=== PATIENT | female | born 1935 | race Caucasian/White ===

== ENCOUNTER 2020-01-09 11:43 | Inpatient (IN) | payer MEDICARE, MEDICAID, SELFPAY ==
[2020-01-09] VITALS (9 sets, daily range): BP systolic 97–121; BP diastolic 37–48; PULSE 82–92; RESP 17–25; TEMP 37.3–38.3; O2SAT 90–97; BMI 69.1
--- NOTE | 2020-01-09 12:30 | XR_ITS ---
EXAMINATION: XR CHEST 1 VIEW CLINICAL INFORMATION: Cough, fever. COMPARISON: Priors unavailable. TECHNIQUE: AP portable chest. FINDINGS: Hypoinflated with bronchovascular crowding and mild central vascular congestion. No overt edema. No definite effusion or consolidation. Normal cardiac silhouette. IMPRESSION: Hypoinflation with bronchovascular crowding/central vascular congestion. No focal consolidation.
--- NOTE | 2020-01-09 12:31 | ED_ITS ---
HPI - Fever General Chief Complaint: Fever Stated Complaint: FEVER,COUGH X'S 1 WEEK Time Seen by Provider: 01/09/20 12:30 Source: patient and family Limitations: altered mental status (dementia) History of Present Illness HPI Narrative: noted to have URI with fevers up to 103 at home, son notes difficulty breathing last night here no hypoxia at this time MD elicited complaint: fever Onset (ago): day(s) (7) Exacerbating factors: nothing Relieving factors: nothing Associated symptoms: chills, nasal congestion, cough and shortness of breath Related Data Allergies Allergy/AdvReac Type Severity Reaction Status Date / Time No Known Allergies Allergy Unverified 12/26/19 19:02 [No Known Allergies*] Review of Systems Review of Systems: Constitutional : positive Fever, positive Chills, positive fatigue, positive Malaise ENT/Mouth : no sore throat, positive runny nose Eyes: No Discharge Cardiovascular : No Chest Pain, positive SOB Respiratory : positive Cough, No Sputum, No Wheezing, positive Dyspnea Gastrointestinal : positive Nausea, No Vomiting, No Diarrhea, no abdominal pain Genitourinary : No Dysuria, No Urinary Frequency, Musculoskeletal : positive Myalgia Skin : No rash Neuro : No Headache PMFSH Past Medical History Attestation statement: The following information was validated with the patient. Medical History (Updated 01/09/20 @ 15:59 by Yesika Jones DO) Arthritis Diabetes mellitus, type 2 Hypertension Social History Social History Advance Directives: No Advance Directives Information Provided: No Physical Exam Vital Signs and I&O and Narrative: Vital Signs and I&O: Vital Signs Temp 100.5 F H 01/09/20 15:20 Pulse 92 01/09/20 15:20 Resp 17 01/09/20 15:20 BP 121/46 L 01/09/20 15:20 Pulse Ox 94 01/09/20 14:02 Intake & Output 01/08/20 01/09/20 01/09/20 18:59 06:59 18:59 Weight 145 kg Body Mass Index 69.1 Const: General: cooperative and no acute distress Nutritional Appearance: average body habitus HENMT: Head: Yes normal to inspection Face and sinus: Yes normal facial exam Mouth: Normal oral and palatal mucosa present Eyes: General: appearance normal, both eyes and all related structures Pupils: Equal, round and reactive pupils present Neck: Neck: Yes normal visual inspection Resp: Effort & Inspection: normal respiratory effort and no respiratory distress Auscultation: bronchial breath sounds Cardio: Rate: regular rate Rhythm: regular rhythm Peripheral pulses: Peripheral pulses 2+ throughout GI: Palpation (GI): Soft to palpation and nontender Skin: General skin exam: no rashes or lesions noted Neuro: General: moves all extremities and confusion (baseline) Cranial nerves: Yes Equal, round and reactive pupils present Motor exam (neuro): 5/5 motor strength present throughout Extrem: General: Yes normal to inspection and Yes no pedal edema Psych: Affect: normal affect Course Course Hospital Course: positive CT chest for COVID, no hypoxia will ask the patient to be ambulated and if she becomes hypoxic may need admission, son aware, also notified that she may have a poor outcome from this, CT scan positive at this time will start antibiotics given chest CT and infection though likely viral in nature 257pm Reevaluation(s) Reevaluation #1: does not ambulate cannot check for hypoxia but resting baseline is 93-95% she looks unwell Reevaluation #2: currently 93% on RA her RR is 26 will talk to hospitalist about possible admission MDM - Fever MDM Narrative Medical decision making narrative: son reports fevers and cough x 1 week much worse last night here with congestion and cough, will need labs, lactic acid, tylenol, CXR for pneumonia, COVID swab, patient is not eating or drinking at home, overall FTT and weak, dispo per results and findings Lab Data Result diagrams: 01/09/20 13:30 01/09/20 13:30 Labs: Lab Results 01/09/20 01/09/20 01/09/20 Range/Units 13:30 13:30 13:30 WBC 6.1 (4.8-10.8) X10*3/uL RBC 4.56 (4.20-5.50) X10*6/uL Hgb 11.5 L (12.0-16.0) g/dl Hct 37.1 (37-47) % MCV 81.4 (80-98) fL MCH 25.2 L (27.0-33.0) pg MCHC 31.0 (31.0-35.0) g/dl RDW 13.1 (11.0-16.0) % Plt Count 181 (160-400) X10*3/uL MPV 9.6 (9.4-12.3) fL Immature Gran % (Auto) 0.8 H (0.0-0.4) % Neut % (Auto) 78.7 H (45-73) % Lymph % (Auto) 13.9 L (20-40) % [place] % (Auto) 5.9 (2-11) % Eos % (Auto) 0.5 (0-4) % Baso % (Auto) 0.2 (0-2) % Neut # (Auto) 4.8 (2.0-8.3) X10*3/uL Lymph # (Auto) 0.9 L (1.2-4.9) X10*3/uL [place] # (Auto) 0.4 (0.1-1.2) X10*3/uL Eos # (Auto) 0.0 (0.0-0.4) X10*3/uL Baso # (Auto) 0.0 (0.0-0.2) X10*3/uL Abs Immat Gran (auto) 0.05 H (0.00-0.03) X10*3/uL Absolute Nucleated RBC 0.000 (0.0-0.012) X10*3/uL Nucleated RBC % (auto) 0.0 (0.0-0.2) /100WBC D-Dimer NG/ML Hold Blue Top Cancelled Sodium 134 L (135-145) mmol/L Potassium 4.4 (3.3-5.1) mmol/l Chloride 99 (96-108) mmol/L Carbon Dioxide 27 (22-29) mmol/L Anion Gap 12 (12-20) BUN 18 H (9-16) mg/dL Creatinine 0.84 (0.5-1.4) mg/dL Estim Creat Clear Calc 63.8 Estimated GFR > 60 Random Glucose 240 H (60-115) mg/dL Lactic Acid (0.5-2.0) mmol/L Calcium 8.6 (8.4-10.2) mg/dL Magnesium 2.1 (1.6-2.6) mg/dL Total Bilirubin 0.4 (0.0-1.0) mg/dL Direct Bilirubin 0.2 (0.0-0.5) mg/dL AST 26 (5-31) U/L ALT 20 (0-31) U/L Alkaline Phosphatase 88 (39-117) U/L Lactate Dehydrogenase 297 H (122-220) U/L Troponin I High Sens (<3.5-17.0) ng/L B-Natriuretic Peptide (<100) pg/mL Total Protein 6.7 (6.5-8.0) g/dL Albumin 3.8 (3.5-5.0) g/dL 01/09/20 01/09/20 01/09/20 Range/Units 13:30 13:30 13:30 WBC (4.8-10.8) X10*3/uL RBC (4.20-5.50) X10*6/uL Hgb (12.0-16.0) g/dl Hct (37-47) % MCV (80-98) fL MCH (27.0-33.0) pg MCHC (31.0-35.0) g/dl RDW (11.0-16.0) % Plt Count (160-400) X10*3/uL MPV (9.4-12.3) fL Immature Gran % (Auto) (0.0-0.4) % Neut % (Auto) (45-73) % Lymph % (Auto) (20-40) % [place] % (Auto) (2-11) % Eos % (Auto) (0-4) % Baso % (Auto) (0-2) % Neut # (Auto) (2.0-8.3) X10*3/uL Lymph # (Auto) (1.2-4.9) X10*3/uL [place] # (Auto) (0.1-1.2) X10*3/uL Eos # (Auto) (0.0-0.4) X10*3/uL Baso # (Auto) (0.0-0.2) X10*3/uL Abs Immat Gran (auto) (0.00-0.03) X10*3/uL Absolute Nucleated RBC (0.0-0.012) X10*3/uL Nucleated RBC % (auto) (0.0-0.2) /100WBC D-Dimer 948 NG/ML Hold Blue Top SEE NOTE Sodium (135-145) mmol/L Potassium (3.3-5.1) mmol/l Chloride (96-108) mmol/L Carbon Dioxide (22-29) mmol/L Anion Gap (12-20) BUN (9-16) mg/dL Creatinine (0.5-1.4) mg/dL Estim Creat Clear Calc Estimated GFR Random Glucose (60-115) mg/dL Lactic Acid 1.4 (0.5-2.0) mmol/L Calcium (8.4-10.2) mg/dL Magnesium (1.6-2.6) mg/dL Total Bilirubin (0.0-1.0) mg/dL Direct Bilirubin (0.0-0.5) mg/dL AST (5-31) U/L ALT (0-31) U/L Alkaline Phosphatase (39-117) U/L Lactate Dehydrogenase (122-220) U/L Troponin I High Sens 18.4 H (<3.5-17.0) ng/L B-Natriuretic Peptide 15 (<100) pg/mL Total Protein (6.5-8.0) g/dL Albumin (3.5-5.0) g/dL ECG Data Attestation: I personally reviewed and interpreted this ECG as follows: ECG interpretation date: 01/09/20 ECG interpretation time: 13:28 Interpretation: NSR 86 normal p waves and germaine, normal QRS, left axis deviation, normal ST T waves, no DANA, normal qTc, no ischemia Discharge Plan Discharge Clinical Impression: Viral infection, Weakness, Adult failure to thrive Pneumonia Qualifiers: Pneumonia type: due to unspecified organism Laterality: bilateral Lung location: lower lobe of lung Qualified Code(s): J18.9 - Pneumonia, unspecified organism Patient Disposition: Admitted As Inpatient
--- NOTE | 2020-01-09 13:42 | CT_ITS ---
EXAMINATION: CT CHEST WITHOUT CONTRAST CLINICAL INFORMATION: Fevers and cough. Evaluate for pneumonia. COMPARISON: Same day radiographs TECHNIQUE: A noncontrast CT of the chest is performed with sagittal and coronal reformats. This CT examination was performed using dose optimization techniques as appropriate, variously including the following: *Automated exposure control *Adjustment of mA and/or kV according to patient size (this includes techniques or standardized protocols for targeted exams where dose is matched to indication/reason for exam; i.e. extremities or head) *Use of iterative reconstruction technique DLP: 469 FINDINGS: There are patchy peripheral groundglass parenchymal opacities in both upper lobes and both posterior lower lobes, as well as along the inferior aspect of the right middle lobe. No dense consolidation. Mildly prominent paratracheal and subcarinal lymph nodes. No axillary or hilar adenopathy. No pericardial effusion or pleural effusion. Extensive atherosclerotic calcifications. No acute osseous abnormality. Small hiatal hernia. IMPRESSION: Fairly diffuse peripheral groundglass parenchymal opacities concerning for an atypical multifocal pneumonia with mildly prominent mediastinal lymph nodes. These imaging features are concerning for Covid 19 pneumonia. Correlate clinically.
[2020-01-09 13:43] LABS: Basophils Percent Auto 0.2 % (0-2); Eosinophils Percent Auto 0.5 % (0-4); Hematocrit 37.1 % (37-47); Hemoglobin 11.5 g/dl (12.0-16.0); Imm Gran Abs Auto 0.05 X10*3/uL (0.00-0.03); Imm Gran Pct Auto 0.8 % (0.0-0.4); Lymphocytes Absolute Auto 0.9 X10*3/uL (1.2-4.9); Lymphocytes Percent Auto 13.9 % (20-40); MANUAL DIFF FLAG NO; Mean Corpuscular Hemoglobin 25.2 pg (27.0-33.0); Mean Corpuscular Volume 81.4 fL (80-98); Mean Platelet Volume 9.6 fL (9.4-12.3); Monocytes Absolute Auto 0.4 X10*3/uL (0.1-1.2); Monocytes Percent Auto 5.9 % (2-11); Neutrophils Absolute Auto 4.8 X10*3/uL (2.0-8.3); Neutrophils Percent Auto 78.7 % (45-73); Platelet Count 181 X10*3/uL (160-400); Red Blood Count 4.56 X10*6/uL (4.20-5.50); Red Cell Distribution Width 13.1 % (11.0-16.0); White Blood Count 6.1 X10*3/uL (4.8-10.8)
[2020-01-09 14:04] LABS: Lactic Acid 1.4 mmol/L (0.5-2.0)
[2020-01-09] MEDS: Acetaminophen Oral Liquid 650 MG/20.3 ML SOLUTION PO (14:05)
[2020-01-09] MEDS: ondansetron HCL 4 MG/2 ML VIAL IVPUSH (14:05)
[2020-01-09 14:10] LABS: Alanine Aminotransferase 20 U/L (0-31); Albumin Level 3.8 g/dL (3.5-5.0); Alkaline Phosphatase 88 U/L (39-117); Anion Gap 12 (12-20); Aspartate Amino Transferase 26 U/L (5-31); Bilirubin Direct 0.2 mg/dL (0.0-0.5); Bilirubin Total 0.4 mg/dL (0.0-1.0); Blood Urea Nitrogen 18 mg/dL (9-16); Calcium 8.6 mg/dL (8.4-10.2); Carbon Dioxide 27 mmol/L (22-29); Chloride 99 mmol/L (96-108); Creatinine Clr Calc Pharmacy 63.8; Estimated Glomerular Filt Rate > 60; Glucose Random 240 mg/dL (60-115); Magnesium 2.1 mg/dL (1.6-2.6); Potassium 4.4 mmol/l (3.3-5.1); Sodium 134 mmol/L (135-145); Total Protein 6.7 g/dL (6.5-8.0)
[2020-01-09 14:23] LABS: B Type Natriuretic Peptide 15 pg/mL (<100); Troponin-I High Sensitivity 18.4 ng/L (<3.5-17.0)
--- NOTE | 2020-01-09 15:26 | PC.NURSE ---
pt in bed with son at the bedside no acute resp distress noted but pt is febrile this RN taking over this pt
[2020-01-09] MEDS: cefTRIAXone sodium 1 GM in 0.9 % Sodium Chloride 50 ML IV (15:31)
[2020-01-09 15:49] LABS: D Dimer 948 NG/ML
[2020-01-09 15:54] LABS: Lactate Dehydrogenase 297 U/L (122-220)
[2020-01-09 16:16] LABS: Ferritin 298 ng/mL (10-250)
[2020-01-09 16:23] LABS: Procalcitonin 0.05 ng/mL
[2020-01-09 17:07] LABS: Troponin-I High Sensitivity 17.8 ng/L (<3.5-17.0)
--- NOTE | 2020-01-09 19:12 | PC.NURSE ---
CONGESTED NON PRODUCTIVE COUGH NO RESP DISTRESS
[2020-01-09 19:34] LABS: Glucose Urine UA 100 MG/DL (NEG); Leukocyte Esterase Urine NEG (NEG); Nitrite Urine NEG (NEG); Specific Gravity - Urine 1.025 (1.005-1.025); Urine Blood NEG (NEG); Urine Ketones NEG (NEG); Urine Protein 2+ MG/DL (NEG-TRACE)
[2020-01-09 19:36] LABS: Appearance Urine CLEAR; Color Urine YELLOW
--- NOTE | 2020-01-09 19:49 | PC.NURSE ---
Hospitalist at bedside, son reports that pt started feeling ill last week, following a doctor's appt. pt developed a fever and cough last week. pt had a fall last night, coughing and shortness of breath this morning. EMS called and pt transported to ER. Son reports that pt normally has edema to all extremities, hx of alzheimers . also a hx of diabetes, HTN, Afib. Son is ok with admission, hospitalists asks son what measures should we take if her heart stops. son responds let her go in peace.
--- NOTE | 2020-01-09 19:54 | PC.NURSE ---
Pt placed on 2 lpm o2 via nc, pt's spo2 89% room air.
[2020-01-09 19:56] LABS: RBC Urine 0-2 /HPF (0); Squamous Epithelial Cell Urine TRACE /LPF; WBC Urine 0-2 /HPF (0-4)
--- NOTE | 2020-01-09 21:19 | PC.NURSE ---
report given to rn on floor, pt ready for transport to floor.
[2020-01-09] MEDS: 0.9 % Sodium Chloride Flush 3 ML SYRINGE 2 ML IVFLUSH (23:38)
[2020-01-09] MEDS: Docusate Sodium 100 MG CAPSULE PO (23:38)
[2020-01-09] MEDS: Enoxaparin Sodium 40 MG/0.4 ML SYRINGE SUBCUT (23:38)
[2020-01-10] VITALS (8 sets, daily range): BP systolic 118–162; BP diastolic 53–72; PULSE 85–95; RESP 18–20; TEMP 36.8–38.2; O2SAT 92–98; BMI 69.1
--- NOTE | 2020-01-10 04:24 | P.HPIM_ITS ---
History of Present Illness Date of Service: 01/09/20 Chief Complaint: cough, fever, shortness of breath this is a an 84-year-old female with past medical history of hypertension, diabetes and Alzheimer's who is brought in to the hospital by her son due to multiple complaints including cough, shortness of breath, and fever. History is mostly obtained from her son at bedside as patient has Alzheimer's and unable to give much history. According to her son, he woke up to his mom coughing severely last night as well as showing signs of shortness of breath. It appears the patient has been having some sort of dyspnea for the past 1 week as well as fevers of up to 103. he spoke to her nurse in a.m. and she asked him to bring her to the hospital. Her son denies patient having any recent sick contacts or travel. Patient is mostly bedbound. He reports that she has not complained to him of any other symptoms. On arrival to the ED hemodynamically stable with no significant abnormal vitals satting 90-97%. Patient has been placed on 2 L of O2. Labs are significant for hemoglobin of 11.5, corrected sodium of around 136, BUN of 18, negative UA, high sensitivity troponin of [address] delta [address] of the chest shows diffuse peripheral ground-glass parenchymal opacities concerning for an atypical multifocal pneumonia with features of COVID-19 past medical history includes: Alzheimer's dementia, diabetes, hypertension, osteoarthritis, CVA Past surgical history: Knee replacement bilaterally Family history: Son is unaware of any family history Social history: Comes from home, lives with her son, wheelchair / bedbound, no current or past history of tobacco alcohol or illicit drug Review of Systems Review of Systems: Yes all other systems are reviewed and are negative Neurologic: Reports confusion (baseline) Psychiatric: Psychiatric: Reports confusion (baseline) [facility] Medical History (Updated 01/10/20 @ 04:36 by Anthony Chapman MD) Arthritis Diabetes mellitus, type 2 Hypertension Social History Household Members: Children Household Members Other:: Lives with son who is [place] man Housing: Unknown / Unable to assess Do you presently have visiting nurse or other home services: No Smoking Status: Unknown if ever smoked Use of substances other than those prescribed or required for medical reasons: Unknown Advance Directives: No Advance Directives Information Provided: No Do you have thoughts of harming others: None Recently lost weight without trying: Unsure Meds Allergies Allergy/AdvReac Type Severity Reaction Status Date / Time No Known Allergies Allergy Unverified 12/26/19 19:02 [No Known Allergies*] Home Medications Medication Instructions Recorded Confirmed Type amlodipine 1 tab PO DAILY 01/09/20 01/09/20 History aspirin 1 tab PO DAILY 01/09/20 01/09/20 History docusate sodium 1 cap PO BID PRN 01/09/20 01/09/20 History docusate sodium 1 cap PO BID PRN 01/09/20 01/09/20 History donepezil 1 tab PO DAILY 01/09/20 01/09/20 History isosorbide mononitrate 1 tab PO DAILY 01/09/20 01/09/20 History losartan 1 tab PO DAILY 01/09/20 01/09/20 History melatonin 1 cap PO BEDTIME 01/09/20 01/09/20 History memantine 1 tab PO BID 01/09/20 01/09/20 History quetiapine 1 tab PO BEDTIME 01/09/20 01/09/20 History quetiapine 1 tab PO BEDTIME 01/09/20 01/09/20 History sennosides [senna] 2 tab PO DAILY PRN 01/09/20 01/09/20 History simvastatin 1 tab PO BEDTIME 01/09/20 01/09/20 History trazodone 1 tab PO BEDTIME 01/09/20 01/09/20 History Physical Exam Vital Signs and Narrative: Vital Signs: Last Vital Signs Temp 98.7 F 01/10/20 03:25 Pulse 90 01/10/20 03:25 Resp 20 01/10/20 03:25 BP 158/72 H 01/10/20 03:25 Pulse Ox 98 01/10/20 03:25 Body Mass Index 69.1 Const: General: confusion (baseline) Orientation/consciousness: confusion (baseline) Eyes: General: appearance normal, both eyes and all related structures Pupils: Equal, round and reactive pupils present Resp: Other: unable to auscultate appropriately as patient not following command Effort & Inspection: normal respiratory effort Cardio: Rate: regular rate Rhythm: regular rhythm GI: Palpation (GI): Soft to palpation Auscultation: normal bowel sounds Skin: General skin exam: no rashes or lesions noted Neuro: General: confusion (baseline) Cranial nerves: Yes Equal, round and reactive pupils present Extrem: General: Yes normal to inspection and Yes no pedal edema Results Labs Labs: Laboratory Tests 01/09/20 01/09/20 01/09/20 13:30 13:30 13:30 WBC 6.1 RBC 4.56 Hgb 11.5 L Hct 37.1 MCV 81.4 MCH 25.2 L MCHC 31.0 RDW 13.1 Plt Count 181 MPV 9.6 Immature Gran % (Auto) 0.8 H Neut % (Auto) 78.7 H Lymph % (Auto) 13.9 L [place] % (Auto) 5.9 Eos % (Auto) 0.5 Baso % (Auto) 0.2 Neut # (Auto) 4.8 Lymph # (Auto) 0.9 L [place] # (Auto) 0.4 Eos # (Auto) 0.0 Baso # (Auto) 0.0 Abs Immat Gran (auto) 0.05 H Absolute Nucleated RBC 0.000 Nucleated RBC % (auto) 0.0 D-Dimer Hold Blue Top Cancelled Sodium 134 L Potassium 4.4 Chloride 99 Carbon Dioxide 27 Anion Gap 12 BUN 18 H Creatinine 0.84 Estim Creat Clear Calc 63.8 Estimated GFR > 60 Random Glucose 240 H Lactic Acid Calcium 8.6 Magnesium 2.1 Ferritin 298 H Total Bilirubin 0.4 Direct Bilirubin 0.2 AST 26 ALT 20 Alkaline Phosphatase 88 Lactate Dehydrogenase 297 H Troponin I High Sens B-Natriuretic Peptide Total Protein 6.7 Albumin 3.8 Procalcitonin Urine Color Urine Appearance Urine pH Ur Specific [place] Urine Protein Urine Glucose (UA) Urine Ketones Urine Blood Urine Nitrite Ur Leukocyte Esterase Urine RBC Urine WBC Ur Squamous Epith Cells Urine Bacteria 01/09/20 01/09/20 01/09/20 13:30 13:30 13:30 WBC RBC Hgb Hct MCV MCH MCHC RDW Plt Count MPV Immature Gran % (Auto) Neut % (Auto) Lymph % (Auto) [place] % (Auto) Eos % (Auto) Baso % (Auto) Neut # (Auto) Lymph # (Auto) [place] # (Auto) Eos # (Auto) Baso # (Auto) Abs Immat Gran (auto) Absolute Nucleated RBC Nucleated RBC % (auto) D-Dimer Hold Blue Top Sodium Potassium Chloride Carbon Dioxide Anion Gap BUN Creatinine Estim Creat Clear Calc Estimated GFR Random Glucose Lactic Acid 1.4 Calcium Magnesium Ferritin Total Bilirubin Direct Bilirubin AST ALT Alkaline Phosphatase Lactate Dehydrogenase Troponin I High Sens 18.4 H B-Natriuretic Peptide 15 Total Protein Albumin Procalcitonin 0.05 Urine Color Urine Appearance Urine pH Ur Specific [place] Urine Protein Urine Glucose (UA) Urine Ketones Urine Blood Urine Nitrite Ur Leukocyte Esterase Urine RBC Urine WBC Ur Squamous Epith Cells Urine Bacteria 01/09/20 01/09/20 01/09/20 13:30 16:02 19:11 WBC RBC Hgb Hct MCV MCH MCHC RDW Plt Count MPV Immature Gran % (Auto) Neut % (Auto) Lymph % (Auto) [place] % (Auto) Eos % (Auto) Baso % (Auto) Neut # (Auto) Lymph # (Auto) [place] # (Auto) Eos # (Auto) Baso # (Auto) Abs Immat Gran (auto) Absolute Nucleated RBC Nucleated RBC % (auto) D-Dimer 948 Hold Blue Top SEE NOTE Sodium Potassium Chloride Carbon Dioxide Anion Gap BUN Creatinine Estim Creat Clear Calc Estimated GFR Random Glucose Lactic Acid Calcium Magnesium Ferritin Total Bilirubin Direct Bilirubin AST ALT Alkaline Phosphatase Lactate Dehydrogenase Troponin I High Sens 17.8 H B-Natriuretic Peptide Total Protein Albumin Procalcitonin Urine Color YELLOW Urine Appearance CLEAR Urine pH 6.0 Ur Specific [place] 1.025 Urine Protein 2+ H Urine Glucose (UA) 100 H Urine Ketones NEG Urine Blood NEG Urine Nitrite NEG Ur Leukocyte Esterase NEG Urine RBC 0-2 Urine WBC 0-2 Ur Squamous Epith Cells TRACE Urine Bacteria NONE Assessment and Plan (1) Pneumonia: Qualifiers: Laterality: bilateral Lung location: lower lobe of lung Pneumonia type: due to unspecified organism Qualified Code(s): J18.9 - Pneumonia, un specified organism Status: Acute patient presents with CT imaging suggestive of multifocal pneumonia concerning for COVID-19 infection Patient has no hypoxia at this time with lowest recorded O2 sats of 91% on room air, currently satting 97-98% on 2 L of oxygen Given patient's clinical status prior to contraction of this pneumonia she most likely will have a poor outcome, son at bedside is aware Plan: pending COVID-19 PCR continue ceftriaxone and azithromycin will obtain strep pneumo antigen as well as Legionella antigen for completeness of workup monitoring respiratory status O2 as required (2) Viral infection: Status: Acute most likely COVID-[address] finding plan at this time patient is not hypoxic, hemodynamically stable, pending COVID-19 PCR (3) Weakness: Status: Acute secondary to acute infection will monitor (4) Adult failure to thrive: Status: Acute multifactorial including due to Alzheimer's dementia, being bed-bound, will have to discuss discharge planning with son as he may not be interested in patient placement at [facility]
[2020-01-10 08:17] LABS: Glucose, Whole Blood 290 mg/dL (60-115)
[2020-01-10] MEDS: Insulin Lispro 100 UNIT/ML 3 ML VIAL SUBCUT ×4 (08:32→22:38)
[2020-01-10] MEDS: amLODIPine Besylate 5 MG TABLET PO (08:36)
[2020-01-10] MEDS: Donepezil HCl 10 MG TABLET PO (08:36)
[2020-01-10] MEDS: Losartan Potassium 25 MG TABLET PO (08:36)
[2020-01-10] MEDS: Docusate Sodium 100 MG CAPSULE PO ×2 (08:36→22:34)
[2020-01-10] MEDS: Memantine HCl 10 MG TABLET PO ×2 (08:37→22:34)
[2020-01-10] MEDS: Isosorbide Mononitrate 30 MG TAB.ER.24H PO (08:37)
[2020-01-10] MEDS: Aspirin Enteric Coated 81 MG TABLET.DR PO (08:37)
--- NOTE | 2020-01-10 10:22 | MHC.CDI.CONC ---
CDI Concurrent Query Service Date: 01/10/20 Documentation Clarification: Please clarify if you are treating a probable/suspected/likely or confirmed: Body mass index: Morbid obesity Please specify if known Provider Response: Morbid Obesity PLEASE DO NOT DELETE/MODIFY EXISTING CONTENT Additional information is needed in order to code to the highest accuracy and appropriate Severity of Illness (SOI). Please clarify the information noted below in your progress notes and discharge summary. Risk Factors/Clinical Indicators/Treatments Body mass index: 69.1 Wheelchair, bed bound, Diabetes Failure to thrive CDS: Ernestina Barnett [facility], CDIS Contact Number: [phone] Please Review the information above and exercise your independent professional judgment in responding to the query. If you concur, pleas document in the PROGRESS NOTES and DISCHARGE SUMMARY. If you do not agree with the query, please document in the query above. morbid obesity THIS QUERY IS PART OF THE PERMANENT MEDICAL RECORD
--- NOTE | 2020-01-10 11:20 | MHC.CM.PN ---
IMM 01/10/20 FEMALE DX FEVER COUGH. Lives with Son. Dependent all aspects of care. Pt is bedbound. [place] [facility] in place. DP resume homecare services BLS transport. DNR on file. Information was obtained using EMR, and family interview. Son is primary caregiver. IMM delivery, copy at bedside per sons request. CM will follow.
[2020-01-10 11:50] LABS: Glucose, Whole Blood 319 mg/dL (60-115)
[2020-01-10] MEDS: 0.9 % Sodium Chloride Flush 3 ML SYRINGE 2 ML IVFLUSH ×3 (12:06→23:59)
--- NOTE | 2020-01-10 17:23 | PM.IMPN ---
Subjective Subjective Date of Service: 01/10/20 Interval History: Seen in f/u failure to thrive. No new issuess. resting comfortably in covid unit Review of Systems No able to obtain due to dementia Physical Exam Vital Signs and I&O and Narrative: Vital Signs and I&O: Vital Signs Temp 98.2 F 01/10/20 16:00 Pulse 85 01/10/20 16:00 Resp 18 01/10/20 16:00 BP 125/60 01/10/20 16:00 Pulse Ox 94 01/10/20 16:00 Const: General: confusion (baseline) Orientation/consciousness: confusion (baseline) Eyes: General: appearance normal, both eyes and all related structures Pupils: Equal, round and reactive pupils present Resp: Other: unable to auscultate appropriately as patient not following command Effort & Inspection: normal respiratory effort Cardio: Rate: regular rate Rhythm: regular rhythm GI: Palpation (GI): Soft to palpation Auscultation: normal bowel sounds Skin: General skin exam: no rashes or lesions noted Neuro: General: confusion (baseline) Cranial nerves: Yes Equal, round and reactive pupils present Extrem: General: Yes normal to inspection and Yes no pedal edema Objective Data Current Medications Generic Name Dose Route Start Last Admin Trade Name Freq PRN Reason Stop Dose Admin Acetaminophen 650 mg 01/09/20 20:23 Acetaminophen 650 Mg Supp.Rect [place] Q6H PRN Pain, Mild (Pain Scale 1-3) Amlodipine Besylate 5 mg 01/10/20 09:00 01/10/20 08:36 Amlodipine Besylate 5 Mg Tablet PO 5 mg DAILY [facility] Administration Protocol Aspirin 81 mg 01/10/20 09:00 01/10/20 08:37 Aspirin Enteric Coated 81 Mg Tablet.Dr PO 81 mg DAILY [facility] Administration Docusate Sodium 100 mg 01/09/20 21:00 01/10/20 08:36 Docusate Sodium 100 Mg Capsule PO 100 mg BID [facility] Administration Docusate Sodium 100 mg 01/10/20 04:40 Docusate Sodium 100 Mg Capsule PO BID PRN Constipation Donepezil HCl 10 mg 01/10/20 09:00 01/10/20 08:36 Donepezil Hcl 10 Mg Tablet PO 10 mg DAILY [facility] Administration Enoxaparin Sodium 40 mg 01/09/20 22:00 01/09/20 23:38 Enoxaparin Sodium 40 Mg/0.4 Ml Syringe SUBCUT 40 mg Q24H [facility] Administration Ceftriaxone Sodium 1 gm/ 50 mls @ 100 mls/hr 01/10/20 16:00 Sodium Chloride IV Q24H [facility] Azithromycin 500 mg/ Sodium 250 mls @ 250 mls/hr 01/10/20 16:00 Chloride IV Q24H [facility] Insulin Human Lispro 0 unit 01/10/20 07:30 01/10/20 12:04 Insulin Lispro 100 Unit/Ml 3 Ml Vial SUBCUT 8 unit QIDACHS [facility] Administration Protocol Isosorbide Mononitrate 30 mg 01/10/20 09:00 01/10/20 08:37 Isosorbide Mononitrate 30 Mg Tab.Er.24h PO 30 mg DAILY [facility] Administration Protocol Losartan Potassium 25 mg 01/10/20 09:00 01/10/20 08:36 Losartan Potassium 25 Mg Tablet PO 25 mg DAILY [facility] Administration Protocol Magnesium Hydroxide 30 ml 01/09/20 20:23 Milk Of Magnesia 30 Ml Oral.Susp PO DAILY PRN Constipation Memantine 10 mg 01/10/20 09:00 01/10/20 08:37 Memantine Hcl 10 Mg Tablet PO 10 mg BID [facility] Administration Ondansetron HCl 4 mg 01/09/20 20:23 Ondansetron Hcl 4 Mg/2 Ml Vial IVPUSH Q8H PRN Nausea and Vomiting Pharmacy Consult 1 each 01/09/20 16:02 Consult Rx Perform Med Rec MISCELLANE ONCE PRN Consult order Quetiapine Fumarate 100 mg 01/10/20 21:00 Quetiapine Fumarate 100 Mg Tablet PO BEDTIME [facility] Quetiapine Fumarate 50 mg 01/10/20 21:00 Quetiapine Fumarate 50 Mg Tablet PO BEDTIME [facility] Sodium Chloride 2 ml 01/10/20 00:00 01/10/20 12:06 0.9 % Sodium Chloride Flush 3 Ml Syringe IVFLUSH 2 ml QSHIFT [facility] Administration Trazodone HCl 100 mg 01/10/20 21:00 Trazodone Hcl 100 Mg Tablet PO BEDTIME [facility] Labs CBC & Chem 7: 01/09/20 13:30 01/09/20 13:30 Labs: Laboratory Results - last 24 hr Microbiology Microbiology Results: Microbiology 01/09/20 13:33 Blood - Venous Blood Culture - Preliminary No growth after 24 hours. 01/09/20 13:30 Blood - Venous Blood Culture - Preliminary No growth after 24 hours. Progress Note: A&P (1) Adult failure to thrive: Status: Acute (2) Weakness: Status: Acute (3) Viral infection: Status: Acute (4) Pneumonia: Status: Acute (5) Hypertension: Status: Acute (6) Diabetes mellitus, type 2: Status: Acute Assessment and Plan: 84/m With dementia, HTN here with 1) Pneumonia clinically well -continue Abx -covid pending -monitor 2)Adult failure to thrive/weakness related vciral illness, possible covid--supportive care 3) Dementia is stable 4)DM--Insulin, follow BS level , will check hemoglobin A1c due to elevated blood sugar and not taking any medicine at home. 5)HTN-controlled. no changes
[2020-01-10] MEDS: cefTRIAXone sodium 1 GM in 0.9 % Sodium Chloride 50 ML IV (17:32)
[2020-01-10 17:42] LABS: Glucose, Whole Blood 278 mg/dL (60-115)
[2020-01-10] MEDS: Azithromycin 500 MG in 0.9 % Sodium Chloride 250 ML 250 MG IV (18:26)
[2020-01-10 21:20] LABS: Glucose, Whole Blood 298 mg/dL (60-115)
[2020-01-10] MEDS: traZODone HCL 100 MG TABLET PO (22:34)
[2020-01-10] MEDS: Enoxaparin Sodium 40 MG/0.4 ML SYRINGE SUBCUT (22:34)
[2020-01-10] MEDS: QUEtiapine Fumarate 100 MG TABLET PO (22:34)
[2020-01-10] MEDS: QUEtiapine Fumarate 50 MG TABLET PO (22:34)
[2020-01-11] VITALS (8 sets, daily range): BP systolic 121–162; BP diastolic 56–70; PULSE 73–98; RESP 18–20; TEMP 36.7–37.2; O2SAT 91–96
[2020-01-11 08:18] LABS: Glucose, Whole Blood 237 mg/dL (60-115)
[2020-01-11] MEDS: Losartan Potassium 25 MG TABLET PO (08:31)
[2020-01-11] MEDS: Insulin Lispro 100 UNIT/ML 3 ML VIAL SUBCUT ×2 (08:31→17:18)
[2020-01-11] MEDS: Donepezil HCl 10 MG TABLET PO (08:33)
[2020-01-11] MEDS: Aspirin Enteric Coated 81 MG TABLET.DR PO (08:33)
[2020-01-11] MEDS: Docusate Sodium 100 MG CAPSULE PO ×2 (08:33→22:34)
[2020-01-11] MEDS: 0.9 % Sodium Chloride Flush 3 ML SYRINGE 2 ML IVFLUSH ×2 (08:33→15:19)
[2020-01-11] MEDS: Isosorbide Mononitrate 30 MG TAB.ER.24H PO (08:33)
[2020-01-11] MEDS: amLODIPine Besylate 5 MG TABLET PO (08:33)
[2020-01-11] MEDS: Memantine HCl 10 MG TABLET PO ×2 (08:33→22:34)
[2020-01-11 11:30] LABS: Glucose, Whole Blood 178 mg/dL (60-115)
[2020-01-11] MEDS: Azithromycin 500 MG in 0.9 % Sodium Chloride 250 ML 250 MG IV (15:15)
[2020-01-11] MEDS: cefTRIAXone sodium 1 GM in 0.9 % Sodium Chloride 50 ML IV (15:18)
--- NOTE | 2020-01-11 16:15 | HO.PM.IMPN ---
Subjective Subjective Date of Service: 01/11/20 Interval History: patient presented with cough fever and shortness of breath due to underlying dementia patient is unable to provide any meaningful history she yells when ever she is touched or her extremities are moved, as per patient's son this is her baseline Review of Systems unable to obtain detailed review of system due to underlying dementia Physical Exam Vital Signs and I&O and Narrative: Vital Signs and I&O: Vital Signs Temp 98.2 F 01/11/20 16:02 Pulse 94 01/11/20 16:02 Resp 20 01/11/20 16:02 BP 121/56 L 01/11/20 16:02 Pulse Ox 95 01/11/20 16:02 Intake & Output 01/10/20 01/11/20 01/11/20 18:59 06:59 18:59 Intake Total 290 / 680 390 / 680 50 / 50 Output Total 950 / 950 Balance 290 / -270 -560 / -270 50 / 50 Urine Output (Aver age ml/kg/hr) 0.55 0.55 Weight 145 kg Intake: Intake, Oral [place]ana unt 240 / 380 140 / 380 Intake, IV Amoun t 50 / 300 250 / 300 50 / 50 Azithromycin 5 00 mg In 0.9 % 250 / 250 Sodium Chlorid e 250 ml @ 250 mls/hr IV Q24H [facility] Rx#: [id number] cefTRIAXone so dium 1 gm In 0.9 50 / 50 50 / 50 % Sodium Chlor rodolfo 50 ml @ 100 mls/hr IV Q24H [facility] Rx#: [id number] Output: Output, Urine Am ount 450 / 450 Output, Urine Am ount (Catheter) 500 / 500 Female Externa l 500 / 500 Other: Meal Refused No NPO No Breakfast % Eate n 50% 0% Lunch % Eaten 0% Number of Incont inent Voids 1 1 1 Number of Unmeas ured Voids 1 Urine Color Yellow Continuous Bladd er Irrigation Fluid - Amount I nstilled Female Externa l 0 Body Mass Index 69.1 Const: General: resting comfortably in bed neck supple Resp: coarse breath sound, no respiratory distress, no wheeze no crackles Cardio: Rate: regular rate Rhythm: regular rhythm GI: Soft to palpation normal bowel sounds Skin: no rashes or lesions noted Neuro: unable to perform due to dementia Extrem: no pedal edema lower extremity mild puffiness/swelling both hands Objective Data Current Medications Generic Name Dose Route Start Last Admin Trade Name Freq PRN Reason Stop Dose Admin Acetaminophen 650 mg 01/09/20 20:23 Acetaminophen 650 Mg Supp.Rect [place] Q6H PRN Pain, Mild (Pain Scale 1-3) Amlodipine Besylate 5 mg 01/10/20 09:00 01/11/20 08:33 Amlodipine Besylate 5 Mg Tablet PO 5 mg DAILY [facility] Administration Protocol Aspirin 81 mg 01/10/20 09:00 01/11/20 08:33 Aspirin Enteric Coated 81 Mg Tablet.Dr PO 81 mg DAILY [facility] Administration Docusate Sodium 100 mg 01/09/20 21:00 01/11/20 08:33 Docusate Sodium 100 Mg Capsule PO 100 mg BID [facility] Administration Docusate Sodium 100 mg 01/10/20 04:40 Docusate Sodium 100 Mg Capsule PO BID PRN Constipation Donepezil HCl 10 mg 01/10/20 09:00 01/11/20 08:33 Donepezil Hcl 10 Mg Tablet PO 10 mg DAILY [facility] Administration Enoxaparin Sodium 40 mg 01/09/20 22:00 01/10/20 22:34 Enoxaparin Sodium 40 Mg/0.4 Ml Syringe SUBCUT 40 mg Q24H [facility] Administration Ceftriaxone Sodium 1 gm/ 50 mls @ 100 mls/hr 01/10/20 16:00 01/11/20 15:54 Sodium Chloride IV Infused Q24H [facility] Infusion Azithromycin 500 mg/ Sodium 250 mls @ 250 mls/hr 01/10/20 16:00 01/11/20 15:15 Chloride IV 250 mls/hr Q24H [facility] Administration Insulin Human Lispro 0 unit 01/10/20 07:30 01/11/20 12:47 Insulin Lispro 100 Unit/Ml 3 Ml Vial SUBCUT Not Given QIDACHS [facility] Protocol Isosorbide Mononitrate 30 mg 01/10/20 09:00 01/11/20 08:33 Isosorbide Mononitrate 30 Mg Tab.Er.24h PO 30 mg DAILY [facility] Administration Protocol Losartan Potassium 25 mg 01/10/20 09:00 01/11/20 08:31 Losartan Potassium 25 Mg Tablet PO 25 mg DAILY [facility] Administration Protocol Magnesium Hydroxide 30 ml 01/09/20 20:23 Milk Of Magnesia 30 Ml Oral.Susp PO DAILY PRN Constipation Memantine 10 mg 01/10/20 09:00 01/11/20 08:33 Memantine Hcl 10 Mg Tablet PO 10 mg BID [facility] Administration Ondansetron HCl 4 mg 01/09/20 20:23 Ondansetron Hcl 4 Mg/2 Ml Vial IVPUSH Q8H PRN Nausea and Vomiting Pharmacy Consult 1 each 01/09/20 16:02 Consult Rx Perform Med Rec MISCELLANE ONCE PRN Consult order Quetiapine Fumarate 100 mg 01/10/20 21:00 01/10/20 22:34 Quetiapine Fumarate 100 Mg Tablet PO 100 mg BEDTIME [facility] Administration Quetiapine Fumarate 50 mg 01/10/20 21:00 01/10/20 22:34 Quetiapine Fumarate 50 Mg Tablet PO 50 mg BEDTIME [facility] Administration Sodium Chloride 2 ml 01/10/20 00:00 01/11/20 15:19 0.9 % Sodium Chloride Flush 3 Ml Syringe IVFLUSH 2 ml QSHIFT [facility] Administration Trazodone HCl 100 mg 01/10/20 21:00 01/10/20 22:34 Trazodone Hcl 100 Mg Tablet PO 100 mg BEDTIME [facility] Administration Labs CBC & Chem 7: 01/09/20 13:30 01/09/20 13:30 Labs: Laboratory Results - last 24 hr 01/10/20 01/10/20 01/11/20 17:39 21:17 08:08 POC Glucose 278 H 298 H 237 H 01/11/20 11:27 POC Glucose 178 H Microbiology Microbiology Results: Microbiology 01/09/20 13:33 Blood - Venous Blood Culture - Preliminary No growth after 48 hours. 01/09/20 13:30 Blood - Venous Blood Culture - Preliminary No growth after 48 hours. Assessment and Plan (1) Viral infection: Status: Acute (2) Pneumonia: Status: Acute (3) Hypertension: Status: Acute (4) Diabetes mellitus, type 2: Status: Acute (5) Adult failure to thrive: Status: Acute (6) Weakness: Status: Acute Assessment and Plan: 1) Pneumonia clinically doing well -continue Abx,-covid pending, no cough, no shortness of breath,if no further fevers and oxygenation stable will discharge patient home in next 24 hours. 2)Adult failure to thrive/weakness related vciral illness, possible covid--supportive care 3) Dementia is stable 4)DM--Insulin, follow BS level , Improving, follow hemoglobin A1c ,not on any medicine oral hypoglycemic at home. 5)HTN-controlled. no changes continue losartan and isosorbide.
[2020-01-11 16:31] LABS: Glucose, Whole Blood 229 mg/dL (60-115)
[2020-01-11 21:29] LABS: Glucose, Whole Blood 196 mg/dL (60-115)
[2020-01-11] MEDS: QUEtiapine Fumarate 100 MG TABLET PO (22:33)
[2020-01-11] MEDS: QUEtiapine Fumarate 50 MG TABLET PO (22:34)
[2020-01-11] MEDS: Enoxaparin Sodium 40 MG/0.4 ML SYRINGE SUBCUT (22:34)
[2020-01-11] MEDS: traZODone HCL 100 MG TABLET PO (22:34)
[2020-01-12] VITALS (8 sets, daily range): BP systolic 121–150; BP diastolic 55–78; PULSE 88–104; RESP 16–20; TEMP 36.8–37.2; O2SAT 91–97
[2020-01-12] MEDS: 0.9 % Sodium Chloride Flush 3 ML SYRINGE 2 ML IVFLUSH ×4 (00:10→22:10)
[2020-01-12 06:59] LABS: Hemoglobin 10.4 g/dl (12.0-16.0); Mean Corpuscular HGB Conc 31.5 g/dl (31.0-35.0); Mean Corpuscular Hemoglobin 25.4 pg (27.0-33.0); Mean Corpuscular Volume 80.7 fL (80-98); Mean Platelet Volume 9.2 fL (9.4-12.3); Platelet Count 224 X10*3/uL (160-400); Red Blood Count 4.09 X10*6/uL (4.20-5.50); Red Cell Distribution Width 13.1 % (11.0-16.0)
[2020-01-12 07:28] LABS: Glucose, Whole Blood 242 mg/dL (60-115)
[2020-01-12 08:06] LABS: Estimated Average Glucose 180 mg/dL; Hemoglobin A1c % 7.9 %
[2020-01-12] MEDS: Losartan Potassium 25 MG TABLET PO (08:46)
[2020-01-12] MEDS: Insulin Lispro 100 UNIT/ML 3 ML VIAL SUBCUT ×4 (08:49→21:00)
[2020-01-12] MEDS: Donepezil HCl 10 MG TABLET PO (08:50)
[2020-01-12] MEDS: Isosorbide Mononitrate 30 MG TAB.ER.24H PO (08:51)
[2020-01-12] MEDS: Aspirin Enteric Coated 81 MG TABLET.DR PO (08:51)
[2020-01-12] MEDS: Docusate Sodium 100 MG CAPSULE PO ×3 (08:53→22:04)
[2020-01-12] MEDS: amLODIPine Besylate 5 MG TABLET PO (08:53)
[2020-01-12] MEDS: Memantine HCl 10 MG TABLET PO ×2 (08:54→22:09)
[2020-01-12 11:59] LABS: Glucose, Whole Blood 203 mg/dL (60-115)
--- NOTE | 2020-01-12 14:25 | P.PNIM_ITS ---
Subjective Subjective Interval History: patient presented with cough fever and shortness of breath due to underlying dementia patient is unable to provide any meaningful patient is mostly sleepy in the morning likely due to high dose of Seroquel at night, no acute issues overnight no fever chills awaiting COVID test. review of system unobtainable due to underlying dementia Physical Exam Vital Signs and I&O and Narrative: Vital Signs and I&O: Vital Signs Temp 98.4 F 01/12/20 11:51 Pulse 98 01/12/20 11:51 Resp 18 01/12/20 11:51 BP 145/66 H 01/12/20 11:51 Pulse Ox 97 01/12/20 11:51 Intake & Output 01/11/20 01/12/20 01/12/20 18:59 06:59 18:59 Intake Total 360 / 700 340 / 700 120 / 120 Output Total 600 / 600 700 / 700 Balance 360 / 100 -260 / 100 -580 / -580 Urine Output (Aver age ml/kg/hr) 0.34 0.40 Intake: Intake, Oral [place] unt 60 / 400 340 / 400 120 / 120 Intake, IV Amoun t 300 / 300 Azithromycin 5 00 mg In 0.9 % 250 / 250 Sodium Chlorid e 250 ml @ 250 mls/hr IV Q24H [facility] Rx#: [id number] cefTRIAXone so dium 1 gm In 0.9 50 / 50 % Sodium Chlor rodolfo 50 ml @ 100 mls/hr IV Q24H [facility] Rx#: [id number] Output: Output, Urine Am ount 600 / 600 700 / 700 Other: Meal Refused Yes NPO No Breakfast % Eate n 0% 0% Lunch % Eaten 0% 0% Dinner % Eaten 25% Number of Incont inent Voids 1 Urine purewick Purewick Urine Color Tea Yellow Body Mass Index 69.1 Const: General: resting comfortably in bed neck supple Resp: coarse breath sound, no respiratory distress, no wheeze no crackles Cardio: Rate: regular rate Rhythm: regular rhythm GI: Soft to palpation normal bowel sounds Skin: no rashes or lesions noted Neuro: unable to perform due to dementia Extrem: no pedal edema lower extremity mild puffiness/swelling both hands Objective Data Current Medications Generic Name Dose Route Start Last Admin Trade Name Freq PRN Reason Stop Dose Admin Acetaminophen 650 mg 01/09/20 20:23 Acetaminophen 650 Mg Supp.Rect [place] Q6H PRN Pain, Mild (Pain Scale 1-3) Amlodipine Besylate 5 mg 01/10/20 09:00 01/12/20 08:53 Amlodipine Besylate 5 Mg Tablet PO 5 mg DAILY [facility] Administration Protocol Aspirin 81 mg 01/10/20 09:00 01/12/20 08:51 Aspirin Enteric Coated 81 Mg Tablet.Dr PO 81 mg DAILY [facility] Administration Docusate Sodium 100 mg 01/09/20 21:00 01/12/20 09:03 Docusate Sodium 100 Mg Capsule PO 100 mg BID [facility] Administration Docusate Sodium 100 mg 01/10/20 04:40 01/12/20 08:53 Docusate Sodium 100 Mg Capsule PO 100 mg BID PRN Administration Constipation Donepezil HCl 10 mg 01/10/20 09:00 01/12/20 08:50 Donepezil Hcl 10 Mg Tablet PO 10 mg DAILY [facility] Administration Enoxaparin Sodium 40 mg 01/09/20 22:00 01/11/20 22:34 Enoxaparin Sodium 40 Mg/0.4 Ml Syringe SUBCUT 40 mg Q24H [facility] Administration Ceftriaxone Sodium 1 gm/ 50 mls @ 100 mls/hr 01/10/20 16:00 01/11/20 15:54 Sodium Chloride IV Infused Q24H [facility] Infusion Azithromycin 500 mg/ Sodium 250 mls @ 125 mls/hr 01/10/20 16:00 01/11/20 17:12 Chloride IV Infused Q24H [facility] Infusion Insulin Human Lispro 0 unit 01/10/20 07:30 01/12/20 12:36 Insulin Lispro 100 Unit/Ml 3 Ml Vial SUBCUT 4 unit QIDACHS COUNT [facility]CLUD[facility] Administration Protocol Isosorbide Mononitrate 30 mg 01/10/20 09:00 01/12/20 08:51 Isosorbide Mononitrate 30 Mg Tab.Er.24h PO 30 mg DAILY [facility] Administration Protocol Losartan Potassium 25 mg 01/10/20 09:00 01/12/20 08:46 Losartan Potassium 25 Mg Tablet PO 25 mg DAILY [facility] Administration Protocol Magnesium Hydroxide 30 ml 01/09/20 20:23 Milk Of Magnesia 30 Ml Oral.Susp PO DAILY PRN Constipation Memantine 10 mg 01/10/20 09:00 01/12/20 08:54 Memantine Hcl 10 Mg Tablet PO 10 mg BID [facility] Administration Ondansetron HCl 4 mg 01/09/20 20:23 Ondansetron Hcl 4 Mg/2 Ml Vial IVPUSH Q8H PRN Nausea and Vomiting Pharmacy Consult 1 each 01/09/20 16:02 Consult Rx Perform Med Rec MISCELLANE ONCE PRN Consult order Quetiapine Fumarate 100 mg 01/10/20 21:00 01/11/20 22:33 Quetiapine Fumarate 100 Mg Tablet PO 100 mg BEDTIME [facility] Administration Quetiapine Fumarate 50 mg 01/10/20 21:00 01/11/20 22:34 Quetiapine Fumarate 50 Mg Tablet PO 50 mg BEDTIME [facility] Administration Sodium Chloride 2 ml 01/10/20 00:00 01/12/20 09:02 0.9 % Sodium Chloride Flush 3 Ml Syringe IVFLUSH 2 ml QSHIFT [facility] Administration Trazodone HCl 100 mg 01/10/20 21:00 01/11/20 22:34 Trazodone Hcl 100 Mg Tablet PO 100 mg BEDTIME [facility] Administration Labs CBC & Chem 7: 01/12/20 06:23 01/09/20 13:30 Labs: Laboratory Results - last 24 hr 01/11/20 01/11/20 01/12/20 16:27 21:25 06:23 MCV MCH MCHC RDW Plt Count MPV Absolute Nucleated RBC Nucleated RBC % (auto) POC Glucose 229 H 196 H Estimat Average Glucose 180 Hemoglobin A1c % 7.9 01/12/20 01/12/20 01/12/20 06:23 07:21 11:54 MCV 80.7 MCH 25.4 L MCHC 31.5 RDW 13.1 Plt Count 224 MPV 9.2 L Absolute Nucleated RBC 0.000 Nucleated RBC % (auto) 0.0 POC Glucose 242 H 203 H Estimat Average Glucose Hemoglobin A1c % Microbiology Microbiology Results: Microbiology 01/09/20 13:33 Blood - Venous Blood Culture - Preliminary No growth after 48 hours. 01/09/20 13:30 Blood - Venous Blood Culture - Preliminary No growth after 48 hours. Assessment and Plan (1) Viral infection: Status: Acute (2) Pneumonia: Status: Acute (3) Hypertension: Status: Acute (4) Diabetes mellitus, type 2: Status: Acute (5) Adult failure to thrive: Status: Acute (6) Weakness: Status: Acute (7) Suspected COVID-19 virus infection: Status: Acute Assessment and Plan: 1) Pneumonia with high suspicion for COVID-19 clinically doing well -continue Abx,-covid pending, no cough, no shortness of breath,if no further fevers and oxygenation stable will discharge patient home in next 24 hours. patient admitted with LDH 297, D-dimer 948, troponin elevated but flat, and bnp of 15, oxygenation stable will wean oxygen. 2)Adult failure to thrive/weakness related viral illness, possible covid--supportive care 3) Dementia is stable 4)DM--Insulin, follow BS level , Improving, hemoglobin A1c 7.9, will review home medications with patient's son. 5)HTN-controlled. no changes continue losartan and isosorbide.
[2020-01-12] MEDS: cefTRIAXone sodium 1 GM in 0.9 % Sodium Chloride 50 ML IV (17:02)
[2020-01-12 17:36] LABS: Glucose, Whole Blood 240 mg/dL (60-115)
[2020-01-12] MEDS: Azithromycin 500 MG in 0.9 % Sodium Chloride 250 ML 250 MG IV (17:42)
[2020-01-12 21:15] LABS: Glucose, Whole Blood 266 mg/dL (60-115)
[2020-01-12] MEDS: QUEtiapine Fumarate 50 MG TABLET PO (22:00)
[2020-01-12] MEDS: QUEtiapine Fumarate 100 MG TABLET PO (22:09)
[2020-01-12] MEDS: traZODone HCL 100 MG TABLET PO (22:09)
[2020-01-12] MEDS: Enoxaparin Sodium 40 MG/0.4 ML SYRINGE SUBCUT (22:10)
--- NOTE | 2020-01-12 22:47 | PC.NURSE ---
Antibiotic from 01/09/2020 documented as not given as was a backload cleanup issue.
[2020-01-13] VITALS (9 sets, daily range): BP systolic 131–137; BP diastolic 60–80; PULSE 83–95; RESP 16–20; TEMP 35.9–37.2; O2SAT 90–98
[2020-01-13 08:08] LABS: Glucose, Whole Blood 237 mg/dL (60-115)
[2020-01-13] MEDS: Insulin Lispro 100 UNIT/ML 3 ML VIAL SUBCUT ×4 (08:13→21:46)
[2020-01-13] MEDS: Losartan Potassium 25 MG TABLET PO (08:14)
[2020-01-13] MEDS: 0.9 % Sodium Chloride Flush 3 ML SYRINGE 2 ML IVFLUSH ×3 (08:14→21:47)
[2020-01-13] MEDS: Donepezil HCl 10 MG TABLET PO (08:14)
[2020-01-13] MEDS: amLODIPine Besylate 5 MG TABLET PO (08:15)
[2020-01-13] MEDS: Aspirin Enteric Coated 81 MG TABLET.DR PO (08:15)
[2020-01-13] MEDS: Memantine HCl 10 MG TABLET PO ×2 (08:15→21:46)
[2020-01-13] MEDS: Isosorbide Mononitrate 30 MG TAB.ER.24H PO (08:15)
[2020-01-13] MEDS: Docusate Sodium 100 MG CAPSULE PO (08:15)
--- NOTE | 2020-01-13 10:08 | HO.PM.IMPN ---
Physical Exam Vital Signs and I&O and Narrative: Vital Signs and I&O: Vital Signs Temp 98.9 F 01/13/20 08:10 Pulse 92 01/13/20 08:15 Resp 20 01/13/20 08:10 BP 137/69 01/13/20 08:15 Pulse Ox 98 01/13/20 08:10 Intake & Output 01/12/20 01/13/20 01/13/20 18:59 06:59 18:59 Intake Total 170 / 640 470 / 640 Output Total 1000 / 1150 150 / 1150 Balance -830 / -510 320 / -510 Urine Output (Aver age ml/kg/hr) 0.57 0.09 Intake: Intake, Oral [place]ana unt 120 / 340 220 / 340 Intake, IV Amoun t 50 / 300 250 / 300 Azithromycin 5 00 mg In 0.9 % 250 / 250 Sodium Chlorid e 250 ml @ 125 mls/hr IV Q24H [facility] Rx#: [id number] cefTRIAXone so dium 1 gm In 0.9 50 / 50 % Sodium Chlor rodolfo 50 ml @ 100 mls/hr IV Q24H [facility] Rx#: [id number] Output: Output, Urine Am ount 1000 / 1150 150 / 1150 Other: Meal Refused Yes NPO No Breakfast % Eate n 0% Lunch % Eaten 0% Dinner % Eaten 25% Number of Incont inent Voids 1 Urine Purewick Urine Color Yellow Body Mass Index 69.1 Patient seen and examined independently and was present during lei portion of E/M service. Agree with midlevel's history, physical, assessment, and plan. Objective Data Current Medications Generic Name Dose Route Start Last Admin Trade Name Freq PRN Reason Stop Dose Admin Acetaminophen 650 mg 01/09/20 20:23 Acetaminophen 650 Mg Supp.Rect [place] Q6H PRN Pain, Mild (Pain Scale 1-3) Amlodipine Besylate 5 mg 01/10/20 09:00 01/13/20 08:15 Amlodipine Besylate 5 Mg Tablet PO 5 mg DAILY [facility] Administration Protocol Aspirin 81 mg 01/10/20 09:00 01/13/20 08:15 Aspirin Enteric Coated 81 Mg Tablet. PO 81 mg DAILY [facility] Administration Docusate Sodium 100 mg 01/09/20 21:00 01/13/20 08:15 Docusate Sodium 100 Mg Capsule PO 100 mg BID [facility] Administration Docusate Sodium 100 mg 01/10/20 04:40 01/12/20 08:53 Docusate Sodium 100 Mg Capsule PO 100 mg BID PRN Administration Constipation Donepezil HCl 10 mg 01/10/20 09:00 01/13/20 08:14 Donepezil Hcl 10 Mg Tablet PO 10 mg DAILY [facility] Administration Enoxaparin Sodium 40 mg 01/09/20 22:00 01/12/20 22:10 Enoxaparin Sodium 40 Mg/0.4 Ml Syringe SUBCUT 40 mg Q24H [facility] Administration Ceftriaxone Sodium 1 gm/ 50 mls @ 100 mls/hr 01/10/20 16:00 01/12/20 18:11 Sodium Chloride IV Infused Q24H [facility] Infusion Azithromycin 500 mg/ Sodium 250 mls @ 125 mls/hr 01/10/20 16:00 01/12/20 19:17 Chloride IV Infused Q24H [facility] Infusion Insulin Human Lispro 0 unit 01/10/20 07:30 01/13/20 08:13 Insulin Lispro 100 Unit/Ml 3 Ml Vial SUBCUT 4 unit QIDACHS [facility] Administration Protocol Isosorbide Mononitrate 30 mg 01/10/20 09:00 01/13/20 08:15 Isosorbide Mononitrate 30 Mg Tab.Er.24h PO 30 mg DAILY [facility] Administration Protocol Losartan Potassium 25 mg 01/10/20 09:00 01/13/20 08:14 Losartan Potassium 25 Mg Tablet PO 25 mg DAILY [facility] Administration Protocol Magnesium Hydroxide 30 ml 01/09/20 20:23 Milk Of Magnesia 30 Ml Oral.Susp PO DAILY PRN Constipation Memantine 10 mg 01/10/20 09:00 01/13/20 08:15 Memantine Hcl 10 Mg Tablet PO 10 mg BID [facility] Administration Ondansetron HCl 4 mg 01/09/20 20:23 Ondansetron Hcl 4 Mg/2 Ml Vial IVPUSH Q8H PRN Nausea and Vomiting Pharmacy Consult 1 each 01/09/20 16:02 Consult Rx Perform Med Rec MISCELLANE ONCE PRN Consult order Quetiapine Fumarate 100 mg 01/10/20 21:00 01/12/20 22:09 Quetiapine Fumarate 100 Mg Tablet PO 100 mg BEDTIME [facility] Administration Quetiapine Fumarate 50 mg 01/10/20 21:00 01/12/20 22:00 Quetiapine Fumarate 50 Mg Tablet PO 50 mg BEDTIME [facility] Administration Sodium Chloride 2 ml 01/10/20 00:00 01/13/20 08:14 0.9 % Sodium Chloride Flush 3 Ml Syringe IVFLUSH 2 ml QSHIFT [facility] Administration Trazodone HCl 100 mg 01/10/20 21:00 01/12/20 22:09 Trazodone Hcl 100 Mg Tablet PO 100 mg BEDTIME [facility] Administration Labs CBC & Chem 7: 01/12/20 06:23 01/09/20 13:30 Labs: Laboratory Results - last 24 hr 01/09/20 01/12/20 01/12/20 12:31 11:54 17:32 POC Glucose 203 H 240 H COVID-19 PCR DETECTED A 01/12/20 01/13/20 21:09 08:03 POC Glucose 266 H 237 H COVID-19 PCR Microbiology Microbiology Results: Microbiology 01/09/20 13:33 Blood - Venous Blood Culture - Preliminary No growth after 48 hours. 01/09/20 13:30 Blood - Venous Blood Culture - Preliminary No growth after 48 hours.
[2020-01-13] MEDS: dexAMETHasone sod phosphate 4 MG/ML VIAL 6 MG IVPUSH (10:33)
[2020-01-13 11:45] LABS: Glucose, Whole Blood 320 mg/dL (60-115)
--- NOTE | 2020-01-13 14:01 | HO.PM.IMPN ---
Subjective Subjective Interval History: patient presented with cough fever and shortness of breath due to underlying dementia patient is unable to provide any meaningful patient is mostly sleepy in the morning likely due to high dose of Seroquel at night, no acute issues overnight no fever chills awaiting COVID test. review of system unobtainable due to underlying dementia Physical Exam Vital Signs and I&O and Narrative: Vital Signs and I&O: Vital Signs Temp 98.9 F 01/13/20 12:00 Pulse 88 01/13/20 12:00 Resp 20 01/13/20 12:00 BP 137/80 01/13/20 12:00 Pulse Ox 95 01/13/20 12:00 Intake & Output 01/12/20 01/13/20 01/13/20 18:59 06:59 18:59 Intake Total 170 / 640 470 / 640 Output Total 1000 / 1150 150 / 1150 Balance -830 / -510 320 / -510 Urine Output (Aver age ml/kg/hr) 0.57 0.09 Intake: Intake, Oral [place] unt 120 / 340 220 / 340 Intake, IV Amoun t 50 / 300 250 / 300 Azithromycin 5 00 mg In 0.9 % 250 / 250 Sodium Chlorid e 250 ml @ 125 mls/hr IV Q24H [facility] Rx#: [id number] cefTRIAXone so dium 1 gm In 0.9 50 / 50 % Sodium Chlor rodolfo 50 ml @ 100 mls/hr IV Q24H [facility] Rx#: [id number] Output: Output, Urine Am ount 1000 / 1150 150 / 1150 Other: Meal Refused Yes NPO No Breakfast % Eate n 0% Lunch % Eaten 0% Dinner % Eaten 25% Number of Incont inent Voids 1 Urine Purewick Urine Color Yellow Body Mass Index 69.1 general patient resting comfortably in no acute distress easily arousable Neck is supple, no JVD. Lungs clear to auscultation diminished , coarse breath sound no respiratory distress. Heart regular rate rhythm. Gastrointestinal abdomen soft nontender bowel sounds are audible, no rigidity no guarding. Extremities no clubbing cyanosis or edema. Neuro exam unable to obtain a complete neuro due to underlying dementia and tiredness Objective Data Current Medications Generic Name Dose Route Start Last Admin Trade Name Freq PRN Reason Stop Dose Admin Acetaminophen 650 mg 10/01/20 20:23 Acetaminophen 650 Mg Supp.Rect DC Q6H PRN Pain, Mild (Pain Scale 1-3) Amlodipine Besylate 5 mg 01/10/20 09:00 01/13/20 08:15 Amlodipine Besylate 5 Mg Tablet PO 5 mg DAILY [facility] Administration Protocol Aspirin 81 mg 01/10/20 09:00 01/13/20 08:15 Aspirin Enteric Coated 81 Mg Tablet.Dr PO 81 mg DAILY [facility] Administration Dexamethasone Sodium Phosphate 6 mg 01/13/20 10:20 01/13/20 10:33 Dexamethasone Sod Phosphate 4 Mg/Ml Vial IVPUSH 6 mg DAILY [facility] Administration Docusate Sodium 100 mg 01/09/20 21:00 01/13/20 08:15 Docusate Sodium 100 Mg Capsule PO 100 mg BID [facility] Administration Docusate Sodium 100 mg 01/10/20 04:40 01/12/20 08:53 Docusate Sodium 100 Mg Capsule PO 100 mg BID PRN Administration Constipation Donepezil HCl 10 mg 01/10/20 09:00 01/13/20 08:14 Donepezil Hcl 10 Mg Tablet PO 10 mg DAILY [facility] Administration Enoxaparin Sodium 40 mg 01/09/20 22:00 01/12/20 22:10 Enoxaparin Sodium 40 Mg/0.4 Ml Syringe SUBCUT 40 mg Q24H [facility] Administration Ceftriaxone Sodium 1 gm/ 50 mls @ 100 mls/hr 01/10/20 16:00 01/12/20 18:11 Sodium Chloride IV Infused Q24H [facility] Infusion Azithromycin 500 mg/ Sodium 250 mls @ 125 mls/hr 01/10/20 16:00 01/12/20 19:17 Chloride IV Infused Q24H [facility] Infusion Insulin Human Lispro 0 unit 01/10/20 07:30 01/13/20 12:02 Insulin Lispro 100 Unit/Ml 3 Ml Vial SUBCUT 8 unit QIDACHS [facility] Administration Protocol Isosorbide Mononitrate 30 mg 01/10/20 09:00 01/13/20 08:15 Isosorbide Mononitrate 30 Mg Tab.Er.24h PO 30 mg DAILY [facility] Administration Protocol Losartan Potassium 25 mg 01/10/20 09:00 01/13/20 08:14 Losartan Potassium 25 Mg Tablet PO 25 mg DAILY [facility] Administration Protocol Magnesium Hydroxide 30 ml 01/09/20 20:23 Milk Of Magnesia 30 Ml Oral.Susp PO DAILY PRN Constipation Memantine 10 mg 01/10/20 09:00 01/13/20 08:15 Memantine Hcl 10 Mg Tablet PO 10 mg BID [facility] Administration Ondansetron HCl 4 mg 01/09/20 20:23 Ondansetron Hcl 4 Mg/2 Ml Vial IVPUSH Q8H PRN Nausea and Vomiting Pharmacy Consult 1 each 01/09/20 16:02 Consult Rx Perform Med Rec MISCELLANE ONCE PRN Consult order Quetiapine Fumarate 100 mg 01/10/20 21:00 01/12/20 22:09 Quetiapine Fumarate 100 Mg Tablet PO 100 mg BEDTIME [facility] Administration Quetiapine Fumarate 50 mg 01/10/20 21:00 01/12/20 22:00 Quetiapine Fumarate 50 Mg Tablet PO 50 mg BEDTIME [facility] Administration Sodium Chloride 2 ml 01/10/20 00:00 01/13/20 08:14 0.9 % Sodium Chloride Flush 3 Ml Syringe IVFLUSH 2 ml QSHIFT [facility] Administration Trazodone HCl 100 mg 01/10/20 21:00 01/12/20 22:09 Trazodone Hcl 100 Mg Tablet PO 100 mg BEDTIME [facility] Administration Labs CBC & Chem 7: 01/12/20 06:23 01/09/20 13:30 Labs: Laboratory Results - last 24 hr 01/09/20 01/12/20 01/12/20 12:31 17:32 21:09 POC Glucose 240 H 266 H COVID-19 PCR DETECTED A 01/13/20 01/13/20 08:03 11:39 POC Glucose 237 H 320 H COVID-19 PCR Microbiology Microbiology Results: Microbiology 01/09/20 13:33 Blood - Venous Blood Culture - Preliminary No growth after 48 hours. 01/09/20 13:30 Blood - Venous Blood Culture - Preliminary No growth after 48 hours. Assessment and Plan (1) Viral infection: Status: Acute (2) Pneumonia: Status: Acute (3) Hypertension: Status: Acute (4) Diabetes mellitus, type 2: Status: Acute (5) Adult failure to thrive: Status: Acute (6) Weakness: Status: Acute (7) Suspected COVID-19 virus infection: Status: Acute Assessment and Plan: 1) Pneumonia likely due to COVID-19 infection since COVID PCR positive clinically doing well - on IV ceftriaxone and azithromycin, no cough, no shortness of breath,if no further fevers and oxygenation stable will discharge patient home in next 24 hours. patient admitted with LDH 297, D-dimer 948, troponin elevated but flat, and bnp of 15, patient requiring oxygen 2-3 L to keep finger oximetry 90-93%. patient due to dementia is unable to do incentive spirometry, had elevated D-dimer on admission, likely due to COVID. will add dexamethasone and will follow labs and clinical course closely. 2)Adult failure to thrive/weakness related to COVID infection. 3)Dementia stable, continue home medications no behavioral issues 4)DM--Insulin, follow BS level , Improving, hemoglobin A1c 7.9. will add scheduled Lantus insulin, spoke with son Vladislav Segura patient takes Humalog 75/25 12 units at bedtime 5)HTN-controlled. no changes continue losartan and isosorbide.
--- NOTE | 2020-01-13 14:12 | MHC.CM.PN ---
DP home with SON resumption of [facility] and new referral to [facility]. CM will follow.
[2020-01-13] MEDS: cefTRIAXone sodium 1 GM in 0.9 % Sodium Chloride 50 ML IV (15:00)
[2020-01-13] MEDS: Azithromycin 500 MG in 0.9 % Sodium Chloride 250 ML 125 MG IV (15:41)
[2020-01-13 16:21] LABS: Glucose, Whole Blood 237 mg/dL (60-115)
[2020-01-13 16:44] LABS: Hematocrit 33.3 % (37-47); Hemoglobin 10.6 g/dl (12.0-16.0); Mean Corpuscular HGB Conc 31.8 g/dl (31.0-35.0); Mean Corpuscular Hemoglobin 25.4 pg (27.0-33.0); Mean Corpuscular Volume 79.9 fL (80-98); Platelet Count 287 X10*3/uL (160-400); Red Blood Count 4.17 X10*6/uL (4.20-5.50); Red Cell Distribution Width 13.1 % (11.0-16.0); White Blood Count 7.4 X10*3/uL (4.8-10.8)
[2020-01-13 17:04] LABS: Anion Gap 14 (12-20); Blood Urea Nitrogen 16 mg/dL (9-16); C Reactive Protein 11.18 mg/dL (< or = 0.50); Calcium 8.7 mg/dL (8.4-10.2); Carbon Dioxide 27 mmol/L (22-29); Chloride 100 mmol/L (96-108); Creatinine Clr Calc Pharmacy 65.4; Estimated Glomerular Filt Rate > 60; Glucose Random 238 mg/dL (60-115); Potassium 4.7 mmol/l (3.3-5.1); Sodium 136 mmol/L (135-145)
[2020-01-13 17:22] LABS: Band Neutrophils Percent 1 % (3-5); Lymphocytes Absolute Manual 0.3 X10*3/uL (0.6-4.8); Lymphocytes Percent Manual 4 % (20-40); Monocytes Absolute Manual 0.2 X10*3/uL (0.0-1.2); Monocytes Percent Manual 3 % (2-11); Neutrophils Absolute Manual 6.9 X10*3/uL (2.2-7.9); Neutrophils Percent Manual 92 % (45-73)
[2020-01-13 17:23] LABS: Ovalocytes 1+; Platelet Estimate NORMAL (NORMAL); Platelet Morphology Comment NORMAL; Procalcitonin 0.08 ng/mL; RBC Morphology NOTED
[2020-01-13 21:34] LABS: Glucose, Whole Blood 338 mg/dL (60-115)
[2020-01-13] MEDS: Enoxaparin Sodium 40 MG/0.4 ML SYRINGE SUBCUT (21:45)
[2020-01-13] MEDS: Insulin Glargine,Hum.rec.anlog 100 UNIT/ML 10 ML VIAL 8 UNIT SUBCUT (21:45)
[2020-01-13] MEDS: QUEtiapine Fumarate 50 MG TABLET PO (21:46)
[2020-01-13] MEDS: QUEtiapine Fumarate 100 MG TABLET PO (21:46)
[2020-01-13] MEDS: traZODone HCL 100 MG TABLET PO (21:46)
[2020-01-14] VITALS (9 sets, daily range): BP systolic 111–148; BP diastolic 56–83; PULSE 77–106; RESP 16–22; TEMP 35.9–37; O2SAT 75–99; BMI 32.3
--- NOTE | 2020-01-14 01:37 | PC.NURSE ---
At 0000 pt spO2 75% on 2 L nasal cannula, shortly after recieving 2200 seroquel and trazodone. Pt difficult to arouse, but eventually woke to sternal rub. Placed on NRB, spO2 up to 100%. Other VSS. MD made aware, no new orders at this time. Respiratory to bedside, pt weaned to 55% venti mask, spO2 95%. Pt placed on continous O2 monitor.
[2020-01-14] MEDS: 0.9 % Sodium Chloride Flush 3 ML SYRINGE 2 ML IVFLUSH ×3 (08:11→21:59)
[2020-01-14] MEDS: Insulin Lispro 100 UNIT/ML 3 ML VIAL SUBCUT ×4 (08:11→21:58)
[2020-01-14] MEDS: Isosorbide Mononitrate 30 MG TAB.ER.24H PO (08:12)
[2020-01-14] MEDS: Donepezil HCl 10 MG TABLET PO (08:12)
[2020-01-14] MEDS: Losartan Potassium 25 MG TABLET PO (08:13)
[2020-01-14] MEDS: Memantine HCl 10 MG TABLET PO (08:13)
[2020-01-14] MEDS: amLODIPine Besylate 5 MG TABLET PO (08:13)
[2020-01-14] MEDS: Aspirin Enteric Coated 81 MG TABLET.DR PO (08:13)
[2020-01-14] MEDS: dexAMETHasone sod phosphate 4 MG/ML VIAL 6 MG IVPUSH (08:14)
[2020-01-14 08:44] LABS: Glucose, Whole Blood 269 mg/dL (60-115)
[2020-01-14 12:19] LABS: Glucose, Whole Blood 323 mg/dL (60-115)
[2020-01-14] MEDS: cefTRIAXone sodium 1 GM in 0.9 % Sodium Chloride 50 ML IV (15:10)
--- NOTE | 2020-01-14 15:37 | P.PNIM_ITS ---
Subjective Subjective Date of Service: 01/14/20 Interval History: patient admitted for weakness, cough, and shortness of breath. this a.m. patient awake alert answering questions appropriately to the mosaic tiler, patient overnight noted to to be hypoxic therefore placed on 15 L Venti mask, patient denies shortness of breath, denies chest pain no cough noted no other acute issues. Review of Systems [employer] no headache, no dizziness. CVS no chest pain, no palpitation. Gastroenterology no nausea, no vomiting no diarrhea. Physical Exam Vital Signs and I&O and Narrative: Vital Signs and I&O: Vital Signs Temp 97.8 F 01/14/20 12:00 Pulse 80 01/14/20 12:00 Resp 16 01/14/20 12:00 BP 140/68 H 01/14/20 12:00 Pulse Ox 99 01/14/20 12:00 Intake & Output 01/13/20 01/14/20 01/14/20 18:59 06:59 18:59 Intake Total 420 / 420 280 / 280 Output Total 400 / 1000 600 / 1000 300 / 300 Balance 20 / -580 -600 / -580 -20 / -20 Urine Output (Aver age ml/kg/hr) 0.23 0.34 0.17 Intake: Intake, Oral [place] unt 120 / 120 280 / 280 Intake, IV Amoun t 300 / 300 Azithromycin 5 00 mg In 0.9 % 250 / 250 Sodium Chlorid e 250 ml @ 125 mls/hr IV Q24H [facility] Rx#: [id number] cefTRIAXone so dium 1 gm In 0.9 50 / 50 % Sodium Chlor rodolfo 50 ml @ 100 mls/hr IV Q24H [facility] Rx#: [id number] Output: Output, Urine Am ount 400 / 1000 600 / 1000 300 / 300 Other: Breakfast % Eate n 25% Lunch % Eaten 25% 25% Dinner % Eaten 25% Urine pure-wick pure wick Urine Color Yellow [place] Body Mass Index 69.1 general patient resting comfortably in no acute distress,Awake and alert. Neck is supple, no JVD. Lungs clear to auscultation diminished , coarse breath sound no respiratory distress. Heart regular rate rhythm. Gastrointestinal abdomen soft nontender bowel sounds are audible, no rigidity no guarding. Extremities no clubbing cyanosis or edema. Neuro exam unable to obtain a complete neuro due to underlying dementia and tiredness Objective Data Current Medications Generic Name Dose Route Start Last Admin Trade Name Ángelq PRN Reason Stop Dose Admin Acetaminophen 650 mg 01/09/20 20:23 Acetaminophen 650 Mg Supp.Rect ME Q6H PRN Pain, Mild (Pain Scale 1-3) Amlodipine Besylate 5 mg 01/10/20 09:00 01/14/20 08:13 Amlodipine Besylate 5 Mg Tablet PO 5 mg DAILY [facility] Administration Protocol Aspirin 81 mg 01/10/20 09:00 01/14/20 08:13 Aspirin Enteric Coated 81 Mg Tablet.Dr PO 81 mg DAILY [facility] Administration Dexamethasone Sodium Phosphate 6 mg 01/13/20 10:20 01/14/20 08:14 Dexamethasone Sod Phosphate 4 Mg/Ml Vial IVPUSH 6 mg DAILY [facility] Administration Docusate Sodium 100 mg 01/09/20 21:00 01/14/20 08:14 Docusate Sodium 100 Mg Capsule PO Not Given BID [facility] Docusate Sodium 100 mg 01/10/20 04:40 01/12/20 08:53 Docusate Sodium 100 Mg Capsule PO 100 mg BID PRN Administration Constipation Enoxaparin Sodium 40 mg 01/09/20 22:00 01/13/20 21:45 Enoxaparin Sodium 40 Mg/0.4 Ml Syringe SUBCUT 40 mg Q24H [facility] Administration Ceftriaxone Sodium 1 gm/ 50 mls @ 100 mls/hr 01/10/20 16:00 01/14/20 15:10 Sodium Chloride IV 100 mls/hr Q24H [facility] Administration Azithromycin 500 mg/ Sodium 250 mls @ 125 mls/hr 01/10/20 16:00 01/13/20 17:46 Chloride IV Infused Q24H [facility] In[facility] Insulin Glargine 12 unit 01/14/20 21:00 Insulin Glargine,Hum.Rec.Anlog 100 Unit/Ml 10 Ml Vial SUBCUT BEDTIME [facility] Insulin Human Lispro 0 unit 01/10/20 07:30 01/14/20 12:24 Insulin Lispro 100 Unit/Ml 3 Ml Vial SUBCUT 8 unit QIDACHS [facility] Administration Protocol Isosorbide Mononitrate 30 mg 01/10/20 09:00 01/14/20 08:12 Isosorbide Mononitrate 30 Mg Tab.Er.24h PO 30 mg DAILY [facility] Administration Protocol Losartan Potassium 25 mg 01/10/20 09:00 01/14/20 08:13 Losartan Potassium 25 Mg Tablet PO 25 mg DAILY [facility] Administration Protocol Magnesium Hydroxide 30 ml 01/09/20 20:23 Milk Of Magnesia 30 Ml Oral.Susp PO DAILY PRN Constipation Ondansetron HCl 4 mg 01/09/20 20:23 Ondansetron Hcl 4 Mg/2 Ml Vial IVPUSH Q8H PRN Nausea and Vomiting Pharmacy Consult 1 each 01/09/20 16:02 Consult Rx Perform Med Rec MISCELLANE ONCE PRN Consult order Quetiapine Fumarate 100 mg 01/10/20 21:00 01/13/20 21:46 Quetiapine Fumarate 100 Mg Tablet PO 100 mg BEDTIME [facility] Administration Sodium Chloride 2 ml 01/10/20 00:00 01/14/20 15:10 0.9 % Sodium Chloride Flush 3 Ml Syringe IVFLUSH 2 ml QSHIFT [facility] Administration Trazodone HCl 100 mg 01/10/20 21:00 01/13/20 21:46 Trazodone Hcl 100 Mg Tablet PO 100 mg BEDTIME [facility] Administration Labs CBC & Chem 7: 01/13/20 16:13 01/13/20 16:13 Labs: Laboratory Results - last 24 hr 01/13/20 01/13/20 01/13/20 16:13 16:13 16:13 MCV 79.9 L MCH 25.4 L MCHC 31.8 RDW 13.1 Plt Count 287 D MPV 9.0 L Absolute Nucleated RBC 0.000 Nucleated RBC % (auto) 0.0 Neutrophils % (Manual) 92 H Band Neutrophils % 1 L Lymphocytes % (Manual) 4 L Monocytes % (Manual) 3 Neutrophils # (Manual) 6.9 Lymphocytes # (Manual) 0.3 L Monocytes # (Manual) 0.2 Platelet Estimate NORMAL Plt Morphology Comment NORMAL RBC Morphology NOTED Ovalocytes 1+ Anion Gap 14 Estim Creat Clear Calc 65.4 Estimated GFR > 60 POC Glucose Random Glucose 238 H Calcium 8.7 C-Reactive Protein 11.18 H Procalcitonin 0.08 01/13/20 01/13/20 01/14/20 16:17 21:30 07:32 MCV MCH MCHC RDW Plt Count MPV Absolute Nucleated RBC Nucleated RBC % (auto) Neutrophils % (Manual) Band Neutrophils % Lymphocytes % (Manual) Monocytes % (Manual) Neutrophils # (Manual) Lymphocytes # (Manual) Monocytes # (Manual) Platelet Estimate Plt Morphology Comment RBC Morphology Ovalocytes Anion Gap Estim Creat Clear Calc Estimated GFR POC Glucose 237 H 338 H 269 H Random Glucose Calcium C-Reactive Protein Procalcitonin 01/14/20 12:08 MCV MCH MCHC RDW Plt Count MPV Absolute Nucleated RBC Nucleated RBC % (auto) Neutrophils % (Manual) Band Neutrophils % Lymphocytes % (Manual) Monocytes % (Manual) Neutrophils # (Manual) Lymphocytes # (Manual) Monocytes # (Manual) Platelet Estimate Plt Morphology Comment RBC Morphology Ovalocytes Anion Gap Estim Creat Clear Calc Estimated GFR POC Glucose 323 H Random Glucose Calcium C-Reactive Protein Procalcitonin Microbiology Microbiology Results: Microbiology 01/09/20 13:30 Blood - Venous Blood Culture - Final No growth after 5 days. 01/09/20 13:33 Blood - Venous Blood Culture - Preliminary No growth after 48 hours. Assessment and Plan (1) Viral infection: Status: Acute (2) Pneumonia: Status: Acute (3) Hypertension: Status: Acute (4) Diabetes mellitus, type 2: Status: Acute (5) Adult failure to thrive: Status: Acute (6) Weakness: Status: Acute (7) Suspected COVID-19 virus infection: Status: Acute Assessment and Plan: 1) Pneumonia likely due to COVID-19 infection since COVID PCR positive clinically doing well but noted to have worsening hypoxia likely due to multiple antipsychotic medications including trazodone and Seroquel will continue on IV ceftriaxone and azithromycin, no cough, no shortness of breath, no further fevers , will continue O2 support cough medication, discussed home medications with son Vladislav he said patient is not taking any medications for dementia therefore will discontinue Aricept and Namenda, will continue Seroquel 100 mg and discontinue additional Seroquel 50 mg, patient also not taking melatonin. patient admitted with LDH 297, D-dimer 948, troponin elevated but flat, and bnp of 15, will gradually wean oxygen,patient due to dementia is unable to do incentive spirometry, had elevated D-dimer on admission, likely due to COVID. will repeat D-dimer and CRP continue iv dexamethasone and will follow labs and clinical course closely. call son and informed him about clinical progress 2)Adult failure to thrive/weakness related to COVID infection. 3)Dementia stable, patient no longer taking any dementia medications,no behavioral issues 4)DM--Insulin, elevated BS level hemoglobin A1c 7.9. will increase dose of Lantus insulin, spoke with son Vladislav Segura patient takes Humalog 75/25 12 units at bedtime, high blood sugar likely due to steroid 5)HTN-controlled. no changes continue losartan and isosorbide.
[2020-01-14] MEDS: Azithromycin 500 MG in 0.9 % Sodium Chloride 250 ML 125 MG IV (16:02)
[2020-01-14 16:16] LABS: Glucose, Whole Blood 279 mg/dL (60-115)
[2020-01-14 16:48] LABS: C Reactive Protein 5.88 mg/dL (< or = 0.50)
[2020-01-14 16:49] LABS: D Dimer 1620 NG/ML
--- NOTE | 2020-01-14 18:07 | PC.NURSE ---
ORDER [id number] ROUTINE ENOXAPARIN TX DOSE LABS RECEIVED. ORDER CLARIFIED WITH DR. ALLEN AND PATIENT HEIGHT AND WEIGHT DOCUMENTED.
[2020-01-14 19:14] LABS: Hematocrit 33.1 % (37-47); Hemoglobin 10.4 g/dl (12.0-16.0); Mean Corpuscular HGB Conc 31.4 g/dl (31.0-35.0); Mean Corpuscular Hemoglobin 25.4 pg (27.0-33.0); Mean Corpuscular Volume 80.7 fL (80-98); Mean Platelet Volume 9.1 fL (9.4-12.3); Platelet Count 341 X10*3/uL (160-400); White Blood Count 9.9 X10*3/uL (4.8-10.8)
[2020-01-14 19:20] LABS: Prothrombin Time 12.3 SEC (10.8-13.0)
[2020-01-14 21:07] LABS: Glucose, Whole Blood 325 mg/dL (60-115)
[2020-01-14] MEDS: Enoxaparin Sodium 80 MG/0.8 ML SYRINGE 70 MG SUBCUT (21:56)
[2020-01-14] MEDS: Insulin Glargine,Hum.rec.anlog 100 UNIT/ML 10 ML VIAL 12 UNIT SUBCUT (21:58)
[2020-01-14] MEDS: traZODone HCL 100 MG TABLET PO (21:59)
[2020-01-14] MEDS: QUEtiapine Fumarate 100 MG TABLET PO (21:59)
[2020-01-15] VITALS (9 sets, daily range): BP systolic 122–170; BP diastolic 57–77; PULSE 70–100; RESP 16–20; TEMP 36.1–37.2; O2SAT 91–97
[2020-01-15 06:45] LABS: Hematocrit 31.2 % (37-47); Hemoglobin 9.8 g/dl (12.0-16.0); Mean Corpuscular HGB Conc 31.4 g/dl (31.0-35.0); Mean Corpuscular Hemoglobin 25.2 pg (27.0-33.0); Mean Corpuscular Volume 80.2 fL (80-98); Mean Platelet Volume 8.8 fL (9.4-12.3); Platelet Count 338 X10*3/uL (160-400); Red Blood Count 3.89 X10*6/uL (4.20-5.50); Red Cell Distribution Width 13.1 % (11.0-16.0); White Blood Count 10.3 X10*3/uL (4.8-10.8)
[2020-01-15 06:48] LABS: Hematocrit 31.4 % (37-47); Hemoglobin 9.8 g/dl (12.0-16.0); Mean Corpuscular HGB Conc 31.2 g/dl (31.0-35.0); Mean Corpuscular Hemoglobin 25.2 pg (27.0-33.0); Mean Corpuscular Volume 80.7 fL (80-98); Mean Platelet Volume 8.9 fL (9.4-12.3); Platelet Count 317 X10*3/uL (160-400); Red Blood Count 3.89 X10*6/uL (4.20-5.50); Red Cell Distribution Width 13.2 % (11.0-16.0); White Blood Count 10.5 X10*3/uL (4.8-10.8)
[2020-01-15 07:22] LABS: Alanine Aminotransferase 19 U/L (0-31); Albumin Level 3.2 g/dL (3.5-5.0); Alkaline Phosphatase 67 U/L (39-117); Aspartate Amino Transferase 29 U/L (5-31); Bilirubin Direct 0.2 mg/dL (0.0-0.5); Bilirubin Total 0.3 mg/dL (0.0-1.0); Total Protein 6.1 g/dL (6.5-8.0)
[2020-01-15 07:23] LABS: Anion Gap 14 (12-20); Blood Urea Nitrogen 20 mg/dL (9-16); Carbon Dioxide 27 mmol/L (22-29); Chloride 104 mmol/L (96-108); Creatinine Clr Calc Pharmacy 47.5; Estimated Glomerular Filt Rate > 60; Glucose Random 193 mg/dL (60-115); Sodium 141 mmol/L (135-145)
[2020-01-15 07:34] LABS: Band Neutrophils Percent 5 % (3-5); Lymphocytes Absolute Manual 0.9 X10*3/uL (0.6-4.8); Lymphocytes Percent Manual 9 % (20-40); Monocytes Absolute Manual 0.7 X10*3/uL (0.0-1.2); Monocytes Percent Manual 7 % (2-11); Neutrophils Absolute Manual 8.8 X10*3/uL (2.2-7.9); Neutrophils Percent Manual 79 % (45-73)
[2020-01-15 07:38] LABS: Ovalocytes 1+; RBC Morphology NOTED
[2020-01-15 07:39] LABS: Platelet Estimate NORMAL (NORMAL)
[2020-01-15 07:42] LABS: Platelet Morphology Comment NORMAL
[2020-01-15 08:02] LABS: Glucose, Whole Blood 175 mg/dL (60-115)
[2020-01-15] MEDS: Insulin Lispro 100 UNIT/ML 3 ML VIAL SUBCUT ×4 (08:41→21:54)
[2020-01-15] MEDS: Enoxaparin Sodium 80 MG/0.8 ML SYRINGE 70 MG SUBCUT ×2 (08:42→20:39)
[2020-01-15] MEDS: dexAMETHasone sod phosphate 4 MG/ML VIAL 6 MG IVPUSH (08:43)
[2020-01-15] MEDS: Losartan Potassium 25 MG TABLET PO (08:43)
[2020-01-15] MEDS: amLODIPine Besylate 5 MG TABLET PO (08:43)
[2020-01-15] MEDS: Isosorbide Mononitrate 30 MG TAB.ER.24H PO (08:44)
[2020-01-15] MEDS: Aspirin Enteric Coated 81 MG TABLET.DR PO (08:44)
[2020-01-15] MEDS: 0.9 % Sodium Chloride Flush 3 ML SYRINGE 2 ML IVFLUSH ×2 (08:45→16:17)
[2020-01-15 11:55] LABS: Glucose, Whole Blood 271 mg/dL (60-115)
--- NOTE | 2020-01-15 11:56 | MHC.CM.PN ---
DP per son Pt home A DC. Pt is requiring more oxygen x 48 hrs per MD rounds. Pt may need STR. Further assessment to determine DC needs. CM will follow.
[2020-01-15 13:25] LABS: Alanine Aminotransferase 23 U/L (0-31); Albumin Level 3.2 g/dL (3.5-5.0); Alkaline Phosphatase 69 U/L (39-117); Aspartate Amino Transferase 37 U/L (5-31); Bilirubin Direct 0.2 mg/dL (0.0-0.5); Bilirubin Total 0.3 mg/dL (0.0-1.0); Total Protein 6.2 g/dL (6.5-8.0)
--- NOTE | 2020-01-15 15:59 | W.PM.IDCN ---
History of Present Illness Data of Consult Service Date: 01/15/20 Primary Care Provider: Amber Mendiola MD She presents to hospital with cough as well as rhinorrhea for a week She has dry cough She has no nausea,vomiting or diarrhea She is diagnosed with COVID Review of Systems Review of Systems: Yes Unobtainable due to mental status; No unobtainable due to endotracheal tube or Unobtainable due to mental condition Neurologic: Reports confusion (baseline) Psychiatric: Psychiatric: Reports confusion (baseline) [facility] Past Medical History Medical History (Updated 01/15/20 @ 17:02 by Aimee Lezama MD) Arthritis COVID-19 virus infection Diabetes mellitus, type 2 Hypertension Social History Social History Household Members: Children Housing: Unknown / Unable to assess Smoking Status: Unknown if ever smoked service: No Current occupational status: retired [employer]s Allergies Allergy/AdvReac Type Severity Reaction Status Date / Time No Known Allergies Allergy Unverified 12/26/19 19:02 [No Known Allergies*] Home Medications Medication Instructions Recorded Confirmed Type amlodipine 5 mg PO DAILY 01/09/20 01/10/20 History aspirin 81 mg PO DAILY 01/09/20 01/10/20 History docusate sodium 100 cap PO BID PRN 01/09/20 01/10/20 History isosorbide mononitrate 30 mg PO DAILY 01/09/20 01/10/20 History losartan 25 mg PO DAILY 01/09/20 01/10/20 History melatonin 10 mg PO BEDTIME 01/09/20 01/10/20 History quetiapine 50 mg PO BEDTIME 01/09/20 01/10/20 History quetiapine 100 mg PO BEDTIME 01/09/20 01/10/20 History sennosides [senna] 17.2 mg PO DAILY PRN 01/09/20 01/10/20 History simvastatin 20 mg PO BEDTIME 01/09/20 01/10/20 History trazodone 100 mg PO BEDTIME 01/09/20 01/10/20 History Physical Exam Vital Signs and I&O and Narrative: Vital Signs and I&O: Vital Signs Temp 97.0 F 01/15/20 15:18 Pulse 81 01/15/20 15:18 Resp 18 01/15/20 15:18 BP 128/60 01/15/20 15:18 Pulse Ox 97 01/15/20 15:18 Intake & Output 01/14/20 01/15/20 01/15/20 18:59 06:59 18:59 Intake Total 760 / 880 120 / 880 360 / 360 Output Total 300 / 700 400 / 700 400 / 400 Balance 460 / 180 -280 / 180 -40 / -40 Urine Output (Aver age ml/kg/hr) 0.37 0.49 0.49 Weight 149 lb 11.102 oz Intake: Intake, Oral [place] unt 460 / 580 120 / 580 360 / 360 Intake, IV Amoun t 300 / 300 Azithromycin 5 00 mg In 0.9 % 250 / 250 Sodium Chlorid e 250 ml @ 125 mls/hr IV Q24H [facility] Rx#: [id number] cefTRIAXone so dium 1 gm In 0.9 50 / 50 % Sodium Chlor rodolfo 50 ml @ 100 mls/hr IV Q24H [facility] Rx#: [id number] Output: Output, Urine Am ount 300 / 700 400 / 700 400 / 400 Other: Meal Refused No Breakfast % Eate n 50% Lunch % Eaten 25% Dinner % Eaten 100% Urine prewick Urine Color Yellow Stool Ostomy Body Mass Index 32.3 Const: General: confusion (baseline) Orientation/consciousness: confusion (baseline) HENMT: Head: Yes normal to inspection Face and sinus: Yes normal facial exam Mouth: Normal oral and palatal mucosa present Resp: Effort & Inspection: normal respiratory effort Cardio: Rate: regular rate Rhythm: regular rhythm GI: Inspection: Yes normal to inspection Skin: General skin exam: no rashes or lesions noted Neuro: General: confusion (baseline) Assessment and Plan (1) COVID-19 virus infection: Problem details: She has oxygen requirements of 5 L for saturation 94% She has been receiving IV Dexamethasone She is looking better but still with oxygen requirements Status: Acute Continue Dexamethasone Stop Azithromycin Would not give Remdesivir at this time,over one week and is improving Check COVID antibodies (2) Suspected COVID-19 virus infection: Status: Acute (3) Diabetes mellitus, type 2: Status: Acute (4) Pneumonia: Qualifiers: Laterality: bilateral Lung location: lower lobe of lung Pneumonia type: due to unspecified organism Qualified Code(s): J18.9 - Pneumonia, unspecified organism Status: Acute Results Labs CBC & Chem 7: 01/19/20 05:28 01/18/20 10:07 Labs: Short CBC 01/14/20 01/15/20 01/15/20 Range/Units 19:03 06:02 06:02 WBC 9.9 10.3 10.5 (4.8-10.8) X10*3/uL Hgb 10.4 L 9.8 L 9.8 L (12.0-16.0) g/dl Hct 33.1 L 31.2 L 31.4 L (37-47) % Plt Count 341 338 317 (160-400) X10*3/uL BMP 01/15/20 06:02 Sodium 141 Potassium 4.0 Chloride 104 Carbon Dioxide 27 BUN 20 H Creatinine 0.70 Calcium 9.0 Liver Function 01/15/20 01/15/20 Range/Units 06:02 11:58 Total Bilirubin 0.3 0.3 (0.0-1.0) mg/dL Direct Bilirubin 0.2 0.2 (0.0-0.5) mg/dL AST 29 37 H (5-31) U/L ALT 19 23 (0-31) U/L Alkaline Phosphatase 67 D 69 (39-117) U/L Albumin 3.2 L 3.2 L (3.5-5.0) g/dL Microbiology Microbiology Results: Microbiology 01/09/20 13:33 Blood - Venous Blood Culture - Final No growth after 5 days. 01/09/20 13:30 Blood - Venous Blood Culture - Final No growth after 5 days.
--- NOTE | 2020-01-15 16:58 | HO.PM.IMPN ---
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 and at times screams when examined. Review of Systems Unable to obtained detail review of system due to dementia. Physical Exam Vital Signs and I&O and Narrative: Vital Signs and I&O: Vital Signs Temp 97.0 F 01/15/20 15:18 Pulse 81 01/15/20 15:18 Resp 18 01/15/20 15:18 BP 128/60 01/15/20 15:18 Pulse Ox 97 01/15/20 15:18 Intake & Output 01/14/20 01/15/20 01/15/20 18:59 06:59 18:59 Intake Total 760 / 880 120 / 880 360 / 360 Output Total 300 / 700 400 / 700 400 / 400 Balance 460 / 180 -280 / 180 -40 / -40 Urine Output (Aver age ml/kg/hr) 0.37 0.49 0.49 Weight 67.9 kg Intake: Intake, Oral [place] unt 460 / 580 120 / 580 360 / 360 Intake, IV Amoun t 300 / 300 Azithromycin 5 00 mg In 0.9 % 250 / 250 Sodium Chlorid e 250 ml @ 125 mls/hr IV Q24H ROMA Rx#: [id number] cefTRIAXone so dium 1 gm In 0.9 50 / 50 % Sodium Chlor rodolfo 50 ml @ 100 mls/hr IV Q24H ROMA Rx#: [id number] Output: Output, Urine Am ount 300 / 700 400 / 700 400 / 400 Other: Meal Refused No Breakfast % Eate n 50% Lunch % Eaten 25% Dinner % Eaten 100% Urine prewick Urine Color Yellow Stool Ostomy Body Mass Index 32.3 General patient resting comfortably in no acute distress. Neck is supple no JVD. CVS regular rate rhythm, Respiratory lungs Diminished breath sound, no respiratory distress, no wheeze, no rhonchi. Gastrointestinal abdomen soft, nontender, bowel sounds audible, no no guarding , no rigidity. Extremities no clubbing cyanosis or edema. mild puffiness both hands Neuro nonfocal patient moving all 4 extremity speech clear. Skin no rash Objective Data Current Medications Generic Name Dose Route Start Last Admin Trade Name Ángelq PRN Reason Stop Dose Admin Acetaminophen 650 mg 01/09/20 20:23 Acetaminophen 650 Mg Supp.Rect MT Q6H PRN Pain, Mild (Pain Scale 1-3) Amlodipine Besylate 5 mg 01/10/20 09:00 01/15/20 08:43 Amlodipine Besylate 5 Mg Tablet PO 5 mg DAILY ORMA Administration Protocol Aspirin 81 mg 01/10/20 09:00 01/15/20 08:44 Aspirin Enteric Coated 81 Mg Tablet.Dr PO 81 mg DAILY ROMA Administration Dexamethasone Sodium Phosphate 6 mg 01/13/20 10:20 01/15/20 08:43 Dexamethasone Sod Phosphate 4 Mg/Ml Vial IVPUSH 6 mg DAILY ROMA Administration Docusate Sodium 100 mg 01/09/20 21:00 01/15/20 08:44 Docusate Sodium 100 Mg Capsule PO Not Given BID [facility] Docusate Sodium 100 mg 01/10/20 04:40 01/12/20 08:53 Docusate Sodium 100 Mg Capsule PO 100 mg BID PRN Administration Constipation Enoxaparin Sodium 70 mg 01/14/20 20:00 01/15/20 08:42 Enoxaparin Sodium 80 Mg/0.8 Ml Syringe SUBCUT 70 mg Q12H ROMA Administration Insulin Glargine 12 unit 01/14/20 21:00 01/14/20 21:58 Insulin Glargine,Hum.Rec.Anlog 100 Unit/Ml 10 Ml Vial SUBCUT 12 unit BEDTIME ROMA Administration Insulin Human Lispro 0 unit 01/10/20 07:30 01/15/20 12:22 Insulin Lispro 100 Unit/Ml 3 Ml Vial SUBCUT 6 unit QIDACHS [facility] Administration Protocol Isosorbide Mononitrate 30 mg 01/10/20 09:00 01/15/20 08:44 Isosorbide Mononitrate 30 Mg Tab.Er.24h PO 30 mg DAILY ROMA Administration Protocol Losartan Potassium 25 mg 01/10/20 09:00 01/15/20 08:43 Losartan Potassium 25 Mg Tablet PO 25 mg DAILY ROMA Administration Protocol Magnesium Hydroxide 30 ml 01/09/20 20:23 Milk Of Magnesia 30 Ml Oral.Susp PO DAILY PRN Constipation Ondansetron HCl 4 mg 01/09/20 20:23 Ondansetron Hcl 4 Mg/2 Ml Vial IVPUSH Q8H PRN Nausea and Vomiting Pharmacy Consult 1 each 01/09/20 16:02 Consult Rx Perform Med Rec MISCELLANE ONCE PRN Consult order Quetiapine Fumarate 100 mg 01/10/20 21:00 01/14/20 21:59 Quetiapine Fumarate 100 Mg Tablet PO 100 mg BEDTIME ROMA Administration Sodium Chloride 2 ml 01/10/20 00:00 01/15/20 16:17 0.9 % Sodium Chloride Flush 3 Ml Syringe IVFLUSH 2 ml QSHIFT ROMA Administration Trazodone HCl 100 mg 01/10/20 21:00 01/14/20 21:59 Trazodone Hcl 100 Mg Tablet PO 100 mg BEDTIME ROMA Administration Labs CBC & Chem 7: 01/15/20 06:02 01/15/20 06:02 Labs: Laboratory Results - last 24 hr 01/14/20 01/14/20 01/14/20 19:03 19:03 21:03 MCV 80.7 MCH 25.4 L MCHC 31.4 RDW 13.0 Plt Count 341 MPV 9.1 L Immature Gran % (Auto) Neut % (Auto) Lymph % (Auto) Randolph % (Auto) Eos % (Auto) Baso % (Auto) Neut # (Auto) Lymph # (Auto) Randolph # (Auto) Eos # (Auto) Baso # (Auto) Abs Immat Gran (auto) Absolute Nucleated RBC 0.000 Nucleated RBC % (auto) 0.0 Neutrophils % (Manual) Band Neutrophils % Lymphocytes % (Manual) Monocytes % (Manual) Neutrophils # (Manual) Lymphocytes # (Manual) Monocytes # (Manual) Platelet Estimate Plt Morphology Comment RBC Morphology Ovalocytes PT 12.3 INR 1.0 APTT 32.0 Anion Gap Estim Creat Clear Calc Estimated GFR POC Glucose 325 H Random Glucose Calcium Total Bilirubin Direct Bilirubin AST ALT Alkaline Phosphatase Total Protein Albumin 01/15/20 01/15/20 01/15/20 06:02 06:02 06:02 MCV 80.2 80.7 MCH 25.2 L 25.2 L MCHC 31.4 31.2 RDW 13.1 13.2 Plt Count 338 317 MPV 8.8 L 8.9 L Immature Gran % (Auto) Cancelled Neut % (Auto) Cancelled Lymph % (Auto) Cancelled Randolph % (Auto) Cancelled Eos % (Auto) Cancelled Baso % (Auto) Cancelled Neut # (Auto) Cancelled Lymph # (Auto) Cancelled Randolph # (Auto) Cancelled Eos # (Auto) Cancelled Baso # (Auto) Cancelled Abs Immat Gran (auto) Cancelled Absolute Nucleated RBC 0.000 0.000 Nucleated RBC % (auto) 0.0 0.0 Neutrophils % (Manual) 79 H Band Neutrophils % 5 Lymphocytes % (Manual) 9 L Monocytes % (Manual) 7 Neutrophils # (Manual) 8.8 H Lymphocytes # (Manual) 0.9 Monocytes # (Manual) 0.7 Platelet Estimate NORMAL Plt Morphology Comment NORMAL RBC Morphology NOTED Ovalocytes 1+ PT INR APTT Anion Gap 14 Estim Creat Clear Calc 47.5 Estimated GFR > 60 POC Glucose Random Glucose 193 H Calcium 9.0 Total Bilirubin Direct Bilirubin AST ALT Alkaline Phosphatase Total Protein Albumin 01/15/20 01/15/20 01/15/20 06:02 07:22 11:28 MCV MCH MCHC RDW Plt Count MPV Immature Gran % (Auto) Neut % (Auto) Lymph % (Auto) Randolph % (Auto) Eos % (Auto) Baso % (Auto) Neut # (Auto) Lymph # (Auto) Randolph # (Auto) Eos # (Auto) Baso # (Auto) Abs Immat Gran (auto) Absolute Nucleated RBC Nucleated RBC % (auto) Neutrophils % (Manual) Band Neutrophils % Lymphocytes % (Manual) Monocytes % (Manual) Neutrophils # (Manual) Lymphocytes # (Manual) Monocytes # (Manual) Platelet Estimate Plt Morphology Comment RBC Morphology Ovalocytes PT INR APTT Anion Gap Estim Creat Clear Calc Estimated GFR POC Glucose 175 H 271 H Random Glucose Calcium Total Bilirubin 0.3 Direct Bilirubin 0.2 AST 29 ALT 19 Alkaline Phosphatase 67 D Total Protein 6.1 L Albumin 3.2 L 01/15/20 11:58 MCV MCH MCHC RDW Plt Count MPV Immature Gran % (Auto) Neut % (Auto) Lymph % (Auto) Randolph % (Auto) Eos % (Auto) Baso % (Auto) Neut # (Auto) Lymph # (Auto) Randolph # (Auto) Eos # (Auto) Baso # (Auto) Abs Immat Gran (auto) Absolute Nucleated RBC Nucleated RBC % (auto) Neutrophils % (Manual) Band Neutrophils % Lymphocytes % (Manual) Monocytes % (Manual) Neutrophils # (Manual) Lymphocytes # (Manual) Monocytes # (Manual) Platelet Estimate Plt Morphology Comment RBC Morphology Ovalocytes PT INR APTT Anion Gap Estim Creat Clear Calc Estimated GFR POC Glucose Random Glucose Calcium Total Bilirubin 0.3 Direct Bilirubin 0.2 AST 37 H ALT 23 Alkaline Phosphatase 69 Total Protein 6.2 L Albumin 3.2 L Microbiology Microbiology Results: Microbiology 01/09/20 13:33 Blood - Venous Blood Culture - Final No growth after 5 days. 01/09/20 13:30 Blood - Venous Blood Culture - Final No growth after 5 days. Assessment and Plan (1) Acute respiratory failure with hypoxia: Status: Acute (2) COVID-19 virus infection: Status: Acute (3) Diabetes mellitus, type 2: Status: Acute (4) Hypertension: Status: Acute (5) Pneumonia: Status: Acute (6) Adult failure to thrive: Status: Acute Assessment and Plan: 1) Pneumonia due to COVID-19 infection ,COVID PCR positive clinically doing well but have persistent hypoxia decreased oxygen requirement this morning on 5 L of oxygen, yesterday was on 50% Ventimask CRP trending down WBC, hematocrit stable due to elevated D-dimer patient placed on therapeutic Lovenox, case discussed with Dr. Escobedo from Infectious Disease she recommend Eliquis twice daily for 2 months no cough, no shortness of breath, no further fevers , will continue O2 support cough medication, discussed home medications with son Vladislav he said patient is not taking any medications for dementia therefore will discontinue Aricept and Namenda, will continue Seroquel 100 mg and discontinue additional Seroquel 50 mg, patient also not taking melatonin. will gradually wean oxygen,patient due to dementia is unable to do incentive spirometry, continue iv dexamethasone and will follow labs and clinical course closely. call son and informed him about clinical progress Dr. Escobedo recommend to discontinue IV antibiotic. Will change to Eliquis upon discharge. 2)Adult failure to thrive/weakness related to COVID infection. 3)Dementia stable, patient no longer taking any dementia medications,no behavioral issues 4)DM--Insulin, elevated BS level hemoglobin A1c 7.9. continue on Lantus insulin, spoke with son Vladislav Segura patient takes Humalog 75/25 12 units at bedtime, high blood sugar likely due to steroid 5)HTN-controlled. no changes continue losartan and isosorbide.
[2020-01-15 19:26] LABS: Prothrombin Time 12.4 SEC (10.8-13.0)
[2020-01-15] MEDS: QUEtiapine Fumarate 100 MG TABLET PO (20:39)
[2020-01-15] MEDS: Insulin Glargine,Hum.rec.anlog 100 UNIT/ML 10 ML VIAL 12 UNIT SUBCUT (20:39)
[2020-01-15] MEDS: traZODone HCL 100 MG TABLET PO (20:39)
[2020-01-15 21:31] LABS: Glucose, Whole Blood 294 mg/dL (60-115)
[2020-01-16] VITALS (8 sets, daily range): BP systolic 120–162; BP diastolic 59–77; PULSE 82–102; RESP 16–20; TEMP 36.8–37.4; O2SAT 94–95
[2020-01-16] MEDS: hydrALAZINE HCl 20 MG/ML VIAL 5 MG IVPUSH (04:42)
--- NOTE | 2020-01-16 04:58 | PC.NURSE ---
pt bp 162/77, md notified, 5mg hydrlalzine IV administered, per md order.
[2020-01-16 07:47] LABS: Glucose, Whole Blood 134 mg/dL (60-115)
[2020-01-16] MEDS: Enoxaparin Sodium 80 MG/0.8 ML SYRINGE 70 MG SUBCUT ×2 (08:18→19:11)
[2020-01-16] MEDS: amLODIPine Besylate 5 MG TABLET PO (08:19)
[2020-01-16] MEDS: Losartan Potassium 25 MG TABLET PO (08:19)
[2020-01-16] MEDS: Isosorbide Mononitrate 30 MG TAB.ER.24H PO (08:20)
[2020-01-16] MEDS: Aspirin Enteric Coated 81 MG TABLET.DR PO (08:20)
[2020-01-16] MEDS: Docusate Sodium 100 MG CAPSULE PO ×2 (08:20→21:23)
[2020-01-16] MEDS: dexAMETHasone sod phosphate 4 MG/ML VIAL 6 MG IVPUSH (08:20)
[2020-01-16] MEDS: 0.9 % Sodium Chloride Flush 3 ML SYRINGE 2 ML IVFLUSH ×4 (08:21→23:02)
[2020-01-16 10:57] LABS: SARS COV2 IgG Positive (Negative)
[2020-01-16 11:36] LABS: Glucose, Whole Blood 213 mg/dL (60-115)
[2020-01-16] MEDS: Insulin Lispro 100 UNIT/ML 3 ML VIAL SUBCUT ×3 (11:45→21:22)
[2020-01-16 16:47] LABS: Glucose, Whole Blood 344 mg/dL (60-115)
--- NOTE | 2020-01-16 17:07 | PM.IMPN ---
Subjective Subjective Date of Service: 01/16/20 Interval History: the shortness of breath berger slowly improving still has some cough Review of Systems patient is baseline dementia unable when answers seems like at baseline as per the staff, shortness of breath berger seems more comfortable. No fever or chills Physical Exam Vital Signs and I&O and Narrative: Vital Signs and I&O: Vital Signs Temp 99.3 F 01/16/20 16:00 Pulse 94 01/16/20 16:00 Resp 18 01/16/20 16:00 BP 130/60 01/16/20 16:00 Pulse Ox 94 01/16/20 16:00 Intake & Output 01/15/20 01/16/20 01/16/20 18:59 06:59 18:59 Intake Total 600 / 1080 480 / 1080 400 / 400 Output Total 400 / 1500 1100 / 1500 50 / 50 Balance 200 / -420 -620 / -420 350 / 350 Urine Output (Aver age ml/kg/hr) 0.49 1.35 0.06 Intake: Intake, Oral [place] unt 600 / 1080 480 / 1080 400 / 400 Output: Output, Urine Am ount 400 / 1500 1100 / 1500 50 / 50 Other: Meal Refused No Breakfast % Eate n 50% 50% Lunch % Eaten 100% Dinner % Eaten 100% Number of Incont inent Voids 1 Number of Unmeas ured Voids 3 Urine prewick purewick Ext cath Urine Color Yellow Concentrated Body Mass Index 32.3 physio: cvs: rrr, [id number] res: grsooly air enrty slightly improving ,few scattered rhonchii abd: no rebound or guarding ,nt, bs present. ext pulses present , no cyanosis neuro: dementia baseline, nonfocal Objective Data Current Medications Generic Name Dose Route Start Last Admin Trade Name Freq PRN Reason Stop Dose Admin Acetaminophen 650 mg 01/09/20 20:23 Acetaminophen 650 Mg Supp.Rect MD Q6H PRN Pain, Mild (Pain Scale 1-3) Amlodipine Besylate 5 mg 01/10/20 09:00 01/16/20 08:19 Amlodipine Besylate 5 Mg Tablet PO 5 mg DAILY ROMA Administration Protocol Aspirin 81 mg 01/10/20 09:00 01/16/20 08:20 Aspirin Enteric Coated 81 Mg Tablet. PO 81 mg DAILY ROMA Administration Dexamethasone Sodium Phosphate 6 mg 01/13/20 10:20 01/16/20 08:20 Dexamethasone Sod Phosphate 4 Mg/Ml Vial IVPUSH 6 mg DAILY ROMA Administration Docusate Sodium 100 mg 01/09/20 21:00 01/16/20 08:20 Docusate Sodium 100 Mg Capsule PO 100 mg BID ROMA Administration Docusate Sodium 100 mg 01/10/20 04:40 01/12/20 08:53 Docusate Sodium 100 Mg Capsule PO 100 mg BID PRN Administration Constipation Enoxaparin Sodium 70 mg 01/14/20 20:00 01/16/20 08:18 Enoxaparin Sodium 80 Mg/0.8 Ml Syringe SUBCUT 70 mg Q12H ROMA Administration Insulin Glargine 12 unit 01/14/20 21:00 01/15/20 20:39 Insulin Glargine,Hum.Rec.Anlog 100 Unit/Ml 10 Ml Vial SUBCUT 12 unit BEDTIME ROMA Administration Insulin Human Lispro 0 unit 01/10/20 07:30 01/16/20 17:06 Insulin Lispro 100 Unit/Ml 3 Ml Vial SUBCUT 8 unit QIDACHS ROMA Administration Protocol Isosorbide Mononitrate 30 mg 01/10/20 09:00 01/16/20 08:20 Isosorbide Mononitrate 30 Mg Tab.Er.24h PO 30 mg DAILY ROMA Administration Protocol Losartan Potassium 25 mg 01/10/20 09:00 01/16/20 08:19 Losartan Potassium 25 Mg Tablet PO 25 mg DAILY ROMA Administration Protocol Magnesium Hydroxide 30 ml 01/09/20 20:23 Milk Of Magnesia 30 Ml Oral.Susp PO DAILY PRN Constipation Ondansetron HCl 4 mg 01/09/20 20:23 Ondansetron Hcl 4 Mg/2 Ml Vial IVPUSH Q8H PRN Nausea and Vomiting Pharmacy Consult 1 each 01/09/20 16:02 Consult Rx Perform Med Rec MISCELLANE ONCE PRN Consult order Quetiapine Fumarate 100 mg 01/10/20 21:00 01/15/20 20:39 Quetiapine Fumarate 100 Mg Tablet PO 100 mg BEDTIME ROMA Administration Sodium Chloride 2 ml 01/10/20 00:00 01/16/20 17:06 0.9 % Sodium Chloride Flush 3 Ml Syringe IVFLUSH 2 ml QSHIFT ROMA Administration Trazodone HCl 100 mg 01/10/20 21:00 01/15/20 20:39 Trazodone Hcl 100 Mg Tablet PO 100 mg BEDTIME ROMA Administration Labs CBC & Chem 7: 01/15/20 06:02 01/15/20 06:02 Labs: Laboratory Results - last 24 hr 01/15/20 01/15/20 01/15/20 18:35 18:35 21:27 PT 12.4 INR 1.0 POC Glucose 294 H SARS-CoV-2 IgG Ab Positive 01/16/20 01/16/20 01/16/20 07:43 10:56 16:42 PT INR POC Glucose 134 H 213 H 344 H SARS-CoV-2 IgG Ab Microbiology Microbiology Results: Microbiology 01/09/20 13:33 Blood - Venous Blood Culture - Final No growth after 5 days. 01/09/20 13:30 Blood - Venous Blood Culture - Final No growth after 5 days. Progress Note: A&P (1) Acute respiratory failure with hypoxia: Status: Acute (2) COVID-19 virus infection: Status: Acute (3) Diabetes mellitus, type 2: Status: Acute Assessment and Plan: 1) Pneumonia due to COVID-19 infection ,COVID PCR positive clinically doing well but have persistent hypoxia decreased oxygen requirement this morning on 4 L of oxygen, off 50% Ventimask CRP trending down WBC h/h around 9.8 range stable no cough, no shortness of breath, no further fevers elevated D-dimer patient placed on therapeutic Lovenox, case discussed with Dr. Escobedo from Infectious Disease she recommend Eliquis twice daily for 2 months,will continue O2 support cough medication, discussed home medications with son Vladislav he said patient is not taking any medications for dementia therefore off Aricept and Namenda. continue Seroquel 100 mg and discontinue additional Seroquel 50 mg, patient also not taking melatonin. thought plan to gradually wean oxygen,patient due to dementia is unable to do incentive spirometry, iv dexamethasone and will follow labs and clinical course closely,change to Eliquis upon discharge. 2)Adult failure to thrive/weakness related to COVID infection-seems po intake improving. 3)Dementia stable, patient no longer taking any dementia medications,no behavioral issues 4)DM--fs flactuatin-250's - continue Insulin, elevated BS level hemoglobin A1c 7.9. continue on current insulin regimen. 5)HTN-controlled. no changes continue losartan and isosorbide.
[2020-01-16 20:53] LABS: Glucose, Whole Blood 399 mg/dL (60-115)
[2020-01-16] MEDS: Insulin Glargine,Hum.rec.anlog 100 UNIT/ML 10 ML VIAL 12 UNIT SUBCUT (21:22)
[2020-01-16] MEDS: traZODone HCL 100 MG TABLET PO (21:23)
[2020-01-16] MEDS: QUEtiapine Fumarate 100 MG TABLET PO (21:23)
[2020-01-16 22:36] LABS: Glucose, Whole Blood 297 mg/dL (60-115)
[2020-01-17] VITALS (7 sets, daily range): BP systolic 121–158; BP diastolic 62–75; PULSE 80–90; RESP 16–20; TEMP 35.9–36.9; O2SAT 94–100
[2020-01-17 04:50] LABS: Glucose, Whole Blood 110 mg/dL (60-115)
[2020-01-17] MEDS: 0.9 % Sodium Chloride Flush 3 ML SYRINGE 2 ML IVFLUSH ×3 (07:57→21:53)
[2020-01-17] MEDS: dexAMETHasone sod phosphate 4 MG/ML VIAL 6 MG IVPUSH (07:58)
[2020-01-17] MEDS: Aspirin Enteric Coated 81 MG TABLET.DR PO (07:59)
[2020-01-17] MEDS: Enoxaparin Sodium 80 MG/0.8 ML SYRINGE 70 MG SUBCUT ×2 (07:59→21:52)
[2020-01-17] MEDS: Losartan Potassium 25 MG TABLET PO (07:59)
[2020-01-17] MEDS: Docusate Sodium 100 MG CAPSULE PO ×2 (07:59→21:51)
[2020-01-17] MEDS: amLODIPine Besylate 5 MG TABLET PO (07:59)
[2020-01-17] MEDS: Isosorbide Mononitrate 30 MG TAB.ER.24H PO (07:59)
[2020-01-17 08:11] LABS: Glucose, Whole Blood 135 mg/dL (60-115)
[2020-01-17 12:21] LABS: Glucose, Whole Blood 218 mg/dL (60-115)
[2020-01-17] MEDS: Insulin Lispro 100 UNIT/ML 3 ML VIAL SUBCUT ×3 (12:29→21:51)
--- NOTE | 2020-01-17 14:48 | MHC.CLN ---
50% AVG PO INTAKE DIET RX: 1200 PUREED-APPROPRIATE DIET WILL PROMOTE SLOW WT LOSS FOLLOWING
--- NOTE | 2020-01-17 15:29 | MHC.CM.PN ---
Female 84 DX COVID+ HX Dementia. She lives with her son. [facility] may need [facility] [place]. DP will require further assessment. CM will follow
[2020-01-17 16:12] LABS: Glucose, Whole Blood 322 mg/dL (60-115)
--- NOTE | 2020-01-17 18:36 | P.PNIM_ITS ---
Subjective Subjective Date of Service: 01/17/20 Interval History: acute respiratory failure Review of Systems shortness of breath seems improved. could not able to answer further questions. Physical Exam Vital Signs and I&O and Narrative: Vital Signs and I&O: Vital Signs Temp 97.9 F 01/17/20 16:00 Pulse 86 01/17/20 16:00 Resp 18 01/17/20 16:00 BP 158/75 H 01/17/20 16:00 Pulse Ox 96 01/17/20 16:00 Intake & Output 01/16/20 01/17/20 01/17/20 18:59 06:59 18:59 Intake Total 400 / 760 360 / 760 Output Total 50 / 900 850 / 900 Balance 350 / -140 -490 / -140 Urine Output (Aver age ml/kg/hr) 0.06 1.04 1.04 Intake: Intake, Oral [place] unt 400 / 760 360 / 760 Output: Output, Urine Am ount 50 / 900 850 / 900 Other: Meal Refused No NPO No Breakfast % Eate n 50% Lunch % Eaten 100% 50% Dinner % Eaten 75% Number of Incont inent Voids 1 Urine Ext cath Urine Color Concentrated Concentrated Body Mass Index 32.3 physical exam: Cvs: rrr, [id number] . res: Grossly fair air entry, slightly diminished at bases, unable to evaluate more patient is slightly noncooperative. abd: no rebound or guarding ,nt, bs present. ext pulses present , no cyanosis neuro: axo3 , nonfocal. Objective Data Current Medications Generic Name Dose Route Start Last Admin Trade Name Freq PRN Reason Stop Dose Admin Acetaminophen 650 mg 01/09/20 20:23 Acetaminophen 650 Mg Supp.Rect IL Q6H PRN Pain, Mild (Pain Scale 1-3) Amlodipine Besylate 5 mg 01/10/20 09:00 01/17/20 07:59 Amlodipine Besylate 5 Mg Tablet PO 5 mg DAILY ROMA Administration Protocol Aspirin 81 mg 01/10/20 09:00 01/17/20 07:59 Aspirin Enteric Coated 81 Mg Tablet. PO 81 mg DAILY ROMA Administration Dexamethasone Sodium Phosphate 6 mg 01/13/20 10:20 01/17/20 07:58 Dexamethasone Sod Phosphate 4 Mg/Ml Vial IVPUSH 6 mg DAILY ROMA Administration Docusate Sodium 100 mg 01/09/20 21:00 01/17/20 07:59 Docusate Sodium 100 Mg Capsule PO 100 mg BID ROMA Administration Docusate Sodium 100 mg 01/10/20 04:40 01/12/20 08:53 Docusate Sodium 100 Mg Capsule PO 100 mg BID PRN Administration Constipation Enoxaparin Sodium 70 mg 01/14/20 20:00 01/17/20 07:59 Enoxaparin Sodium 80 Mg/0.8 Ml Syringe SUBCUT 70 mg Q12H ROMA Administration Insulin Glargine 12 unit 01/14/20 21:00 01/16/20 21:22 Insulin Glargine,Hum.Rec.Anlog 100 Unit/Ml 10 Ml Vial SUBCUT 12 unit BEDTIME ROMA Administration Insulin Human Lispro 0 unit 01/10/20 07:30 01/17/20 17:41 Insulin Lispro 100 Unit/Ml 3 Ml Vial SUBCUT 8 unit QIDACHS ROMA Administration Protocol Isosorbide Mononitrate 30 mg 01/10/20 09:00 01/17/20 07:59 Isosorbide Mononitrate 30 Mg Tab.Er.24h PO 30 mg DAILY ROMA Administration Protocol Losartan Potassium 25 mg 01/10/20 09:00 01/17/20 07:59 Losartan Potassium 25 Mg Tablet PO 25 mg DAILY ROMA Administration Protocol Magnesium Hydroxide 30 ml 01/09/20 20:23 Milk Of Magnesia 30 Ml Oral.Susp PO DAILY PRN Constipation Ondansetron HCl 4 mg 01/09/20 20:23 Ondansetron Hcl 4 Mg/2 Ml Vial IVPUSH Q8H PRN Nausea and Vomiting Pharmacy Consult 1 each 01/09/20 16:02 Consult Rx Perform Med Rec MISCELLANE ONCE PRN Consult order Quetiapine Fumarate 100 mg 01/10/20 21:00 01/16/20 21:23 Quetiapine Fumarate 100 Mg Tablet PO 100 mg BEDTIME ROMA Administration Sodium Chloride 2 ml 01/10/20 00:00 01/17/20 17:42 0.9 % Sodium Chloride Flush 3 Ml Syringe IVFLUSH 2 ml QSHIFT ROMA Administration Trazodone HCl 100 mg 01/10/20 21:00 01/16/20 21:23 Trazodone Hcl 100 Mg Tablet PO 100 mg BEDTIME ROMA Administration Labs CBC & Chem 7: 01/15/20 06:02 10/07/20 06:02 Labs: Laboratory Results - last 24 hr 01/16/20 01/16/20 01/17/20 20:49 22:32 04:38 POC Glucose 399 H* 297 H 110 01/17/20 01/17/20 01/17/20 07:41 12:14 16:07 POC Glucose 135 H 218 H 322 H Microbiology Microbiology Results: Microbiology 01/09/20 13:33 Blood - Venous Blood Culture - Final No growth after 5 days. 01/09/20 13:30 Blood - Venous Blood Culture - Final No growth after 5 days. Progress Note: A&P (1) COVID-19 virus infection: Status: Acute (2) Acute respiratory failure with hypoxia: Status: Acute (3) Diabetes mellitus, type 2: Status: Acute Assessment and Plan: 1) Pneumonia due to COVID-19 infection ,COVID PCR positive clinically doing well but have persistent hypoxia decreased oxygen requirement this morning on 2L of oxygen, off 50% Ventimask CRP trending down WBC h/h around 9.8 range stable no cough, no shortness of breath, no further fevers elevated D-dimer patient placed on therapeutic Lovenox, case discussed with Dr. Escobedo from Infectious Disease she recommend Eliquis twice daily for 2 months,will continue O2 support cough medication, discussed home medications with son Vladislav he said patient is not taking any medications for dementia therefore off Aricept and Namenda. continue Seroquel 100 mg and discontinue additional Seroquel 50 mg, patient also not taking melatonin. thought plan to gradually wean oxygen,patient due to dementia is unable to do incentive spirometry, iv dexamethasone and will follow labs and clinical course closely,change to Eliquis upon discharge. 2)Adult failure to thrive/weakness related to COVID infection-seems po intake improving. 3)Dementia stable, patient no longer taking any dementia medications,no behavioral issues 4)DM--fs flactuating: seems 130-200's range - continue Insulin, elevated BS level hemoglobin A1c 7.9. continue on current insulin regimen. 5)HTN-controlled. no changes continue losartan and isosorbide.
[2020-01-17 20:14] LABS: Glucose, Whole Blood 346 mg/dL (60-115)
[2020-01-17] MEDS: traZODone HCL 100 MG TABLET PO (21:51)
[2020-01-17] MEDS: QUEtiapine Fumarate 100 MG TABLET PO (21:51)
[2020-01-17] MEDS: Insulin Glargine,Hum.rec.anlog 100 UNIT/ML 10 ML VIAL 12 UNIT SUBCUT (21:52)
[2020-01-18] VITALS (9 sets, daily range): BP systolic 113–146; BP diastolic 50–68; PULSE 60–85; RESP 15–19; TEMP 36.1–37; O2SAT 87–99
[2020-01-18] MEDS: 0.9 % Sodium Chloride Flush 3 ML SYRINGE 2 ML IVFLUSH ×2 (08:09→15:55)
[2020-01-18] MEDS: dexAMETHasone sod phosphate 4 MG/ML VIAL 6 MG IVPUSH (08:09)
[2020-01-18] MEDS: Enoxaparin Sodium 80 MG/0.8 ML SYRINGE 70 MG SUBCUT ×2 (08:09→21:18)
[2020-01-18 09:22] LABS: Glucose, Whole Blood 111 mg/dL (60-115)
[2020-01-18] MEDS: Aspirin Enteric Coated 81 MG TABLET.DR PO (10:32)
[2020-01-18] MEDS: Losartan Potassium 25 MG TABLET PO (10:32)
[2020-01-18] MEDS: amLODIPine Besylate 5 MG TABLET PO (10:32)
[2020-01-18] MEDS: Isosorbide Mononitrate 30 MG TAB.ER.24H PO (10:32)
[2020-01-18] MEDS: Docusate Sodium 100 MG CAPSULE PO ×3 (10:33→21:19)
[2020-01-18 10:39] LABS: Anion Gap 13 (12-20); Blood Urea Nitrogen 22 mg/dL (9-16); Calcium 9.4 mg/dL (8.4-10.2); Carbon Dioxide 30 mmol/L (22-29); Chloride 98 mmol/L (96-108); Creatinine Clr Calc Pharmacy 44.3; Estimated Glomerular Filt Rate > 60; Glucose Random 166 mg/dL (60-115); Potassium 4.6 mmol/l (3.3-5.1); Sodium 136 mmol/L (135-145)
[2020-01-18 11:46] LABS: Glucose, Whole Blood 264 mg/dL (60-115)
[2020-01-18] MEDS: Insulin Lispro 100 UNIT/ML 3 ML VIAL SUBCUT ×3 (12:20→21:18)
--- NOTE | 2020-01-18 12:54 | PC.NURSE ---
Pt has been yelling AYE despite repositioning, range of motion. She does not converse appropriately when asked about pain and is confused.
--- NOTE | 2020-01-18 15:34 | PM.IMPN ---
Subjective Subjective Date of Service: 01/18/20 Interval History: acute respiratory failure Review of Systems patient seems more comfortable,still has some agitation Physical Exam Vital Signs: Vital Signs: Vital Signs Temp Pulse Resp BP Pulse Ox 01/18/20 12:00 97.9 F 72 19 133/50 L 98 01/18/20 10:32 76 146/65 H 01/18/20 09:11 91 L 01/18/20 09:00 87 L 01/18/20 08:00 97 F 76 16 146/65 H 94 01/18/20 03:31 96.9 F 60 18 113/68 96 01/17/20 23:26 96.7 F L 84 18 144/73 H 100 01/17/20 19:11 97.0 F 90 18 133/62 94 01/17/20 16:00 97.9 F 86 18 158/75 H 96 Body Mass Index 32.3 Objective Data Current Medications Generic Name Dose Route Start Last Admin Trade Name Freq PRN Reason Stop Dose Admin Acetaminophen 650 mg 01/09/20 20:23 Acetaminophen 650 Mg Supp.Rect DC Q6H PRN Pain, Mild (Pain Scale 1-3) Amlodipine Besylate 5 mg 01/10/20 09:00 01/18/20 10:32 Amlodipine Besylate 5 Mg Tablet PO 5 mg DAILY ROMA Administration Protocol Aspirin 81 mg 01/10/20 09:00 01/18/20 10:32 Aspirin Enteric Coated 81 Mg Tablet.Dr PO 81 mg DAILY ROMA Administration Dexamethasone Sodium Phosphate 6 mg 01/13/20 10:20 01/18/20 08:09 Dexamethasone Sod Phosphate 4 Mg/Ml Vial IVPUSH 6 mg DAILY ROMA Administration Docusate Sodium 100 mg 01/09/20 21:00 01/18/20 10:33 Docusate Sodium 100 Mg Capsule PO 100 mg BID ROMA Administration Docusate Sodium 100 mg 01/10/20 04:40 01/12/20 08:53 Docusate Sodium 100 Mg Capsule PO 100 mg BID PRN Administration Constipation Enoxaparin Sodium 70 mg 01/14/20 20:00 01/18/20 08:09 Enoxaparin Sodium 80 Mg/0.8 Ml Syringe SUBCUT 70 mg Q12H ROMA Administration Insulin Glargine 16 unit 01/18/20 21:00 Insulin Glargine,Hum.Rec.Anlog 100 Unit/Ml 10 Ml Vial SUBCUT BEDTIME [facility] Insulin Human Lispro 0 unit 01/10/20 07:30 01/18/20 12:20 Insulin Lispro 100 Unit/Ml 3 Ml Vial SUBCUT 8 unit QIDACHS [facility] Administration Protocol Isosorbide Mononitrate 30 mg 01/10/20 09:00 01/18/20 10:32 Isosorbide Mononitrate 30 Mg Tab.Er.24h PO 30 mg DAILY [facility] Administration Protocol Losartan Potassium 25 mg 01/10/20 09:00 01/18/20 10:32 Losartan Potassium 25 Mg Tablet PO 25 mg DAILY [facility] Administration Protocol Magnesium Hydroxide 30 ml 01/09/20 20:23 Milk Of Magnesia 30 Ml Oral.Susp PO DAILY PRN Constipation Ondansetron HCl 4 mg 01/09/20 20:23 Ondansetron Hcl 4 Mg/2 Ml Vial IVPUSH Q8H PRN Nausea and Vomiting Pharmacy Consult 1 each 01/09/20 16:02 Consult Rx Perform Med Rec MISCELLANE ONCE PRN Consult order Quetiapine Fumarate 100 mg 01/10/20 21:00 01/17/20 21:51 Quetiapine Fumarate 100 Mg Tablet PO 100 mg BEDTIME [facility] Administration Sodium Chloride 2 ml 01/10/20 00:00 01/18/20 08:09 0.9 % Sodium Chloride Flush 3 Ml Syringe IVFLUSH 2 ml QSHIFT [facility] Administration Trazodone HCl 100 mg 01/10/20 21:00 01/17/20 21:51 Trazodone Hcl 100 Mg Tablet PO 100 mg BEDTIME [facility] Administration Labs CBC & Chem 7: 01/19/20 05:28 01/18/20 10:07 Labs: Laboratory Results - last 24 hr 01/17/20 01/17/20 01/18/20 16:07 20:04 07:56 Anion Gap Estim Creat Clear Calc Estimated GFR POC Glucose 322 H 346 H 111 Random Glucose Calcium 01/18/20 01/18/20 10:07 11:41 Anion Gap 13 Estim Creat Clear Calc 44.3 Estimated GFR > 60 POC Glucose 264 H Random Glucose 166 H Calcium 9.4 Microbiology Microbiology Results: Microbiology 01/09/20 13:33 Blood - Venous Blood Culture - Final No growth after 5 days. 01/09/20 13:30 Blood - Venous Blood Culture - Final No growth after 5 days. Progress Note: A&P (1) COVID-19 virus infection: Status: Acute (2) Acute respiratory failure with hypoxia: Status: Acute (3) Diabetes mellitus, type 2: Status: Acute Assessment and Plan: 1) Pneumonia due to COVID-19 infection ,COVID PCR positive clinically doing well but have persistent hypoxia decreased oxygen requirement this morning on 2L of oxygen, off 50% Ventimask CRP trending down WBC h/h around 9.8 range stable no cough, no shortness of breath, no further fevers elevated D-dimer patient placed on therapeutic Lovenox, case discussed with Dr. Escobedo from Infectious Disease she recommend Eliquis twice daily for 2 months,will continue O2 support cough medication, discussed home medications with son Vladislav he said patient is not taking any medications for dementia therefore off Aricept and Namenda. continue Seroquel 100 mg and discontinue additional Seroquel 50 mg, patient also not taking melatonin. thought plan to gradually wean oxygen,patient due to dementia is unable to do incentive spirometry, iv dexamethasone and will follow labs and clinical course closely,change to Eliquis upon discharge. 2)Adult failure to thrive/weakness related to COVID infection-seems po intake improving. 3)Dementia stable, patient no longer taking any dementia medications,no behavioral issues 4)DM--fs flactuating: seems 130-200's range - continue Insulin, elevated BS level hemoglobin A1c 7.9. continue on current insulin regimen. 5)HTN-controlled. no changes continue losartan and isosorbide.
[2020-01-18 16:43] LABS: Glucose, Whole Blood 219 mg/dL (60-115)
--- NOTE | 2020-01-18 19:05 | PC.NURSE ---
pt has a very large hard stool she has been unable to pass. Pt has been positioned on side to facilitate her having BM. Messaged hospitalist, no reply at this time.
--- NOTE | 2020-01-18 19:21 | PC.NURSE ---
nursing airport ramp supervisor to bedside to help assess pt. Pt has large stool she is unable to pass. pt is turned on her side, assisted to pass very large hard stool. Pt cleaned and repositioned.
[2020-01-18 21:19] LABS: Glucose, Whole Blood 289 mg/dL (60-115)
[2020-01-18] MEDS: Insulin Glargine,Hum.rec.anlog 100 UNIT/ML 10 ML VIAL 16 UNIT SUBCUT (21:19)
[2020-01-18] MEDS: QUEtiapine Fumarate 100 MG TABLET PO (21:20)
[2020-01-18] MEDS: traZODone HCL 100 MG TABLET PO (21:20)
--- NOTE | 2020-01-18 22:20 | W.PM.IDCN ---
History of Present Illness Data of Consult Primary Care Provider: Amber Mendiola MD Review of Systems Neurologic: Reports confusion (baseline) Psychiatric: Psychiatric: Reports confusion (baseline) [facility] Past Medical History Medical History (Updated 01/15/20 @ 17:02 by Aimee Lezama MD) Arthritis COVID-19 virus infection Diabetes mellitus, type 2 Hypertension Social History Social History Household Members: Children Household Members Other:: Lives with son who is web coordinator Housing: Unknown / Unable to assess Do you presently have visiting nurse or other home services: No Smoking Status: Unknown if ever smoked Use of substances other than those prescribed or required for medical reasons: Unknown Currently Displaying Signs/Symptoms of Drug Intoxication Withdrawal: No Advance Directives: No Advance Directives Information Provided: No Do you have thoughts of harming others: None Do you have a plan to hurt others: No Plan Recently lost weight without trying: Unsure service: No Current occupational status: retired [employer] Allergies Allergy/AdvReac Type Severity Reaction Status Date / Time No Known Allergies Allergy Unverified 12/26/19 19:02 [No Known Allergies*] Home Medications Medication Instructions Recorded Confirmed Type amlodipine 5 mg PO DAILY 01/09/20 01/10/20 History aspirin 81 mg PO DAILY 01/09/20 01/10/20 History docusate sodium 100 cap PO BID PRN 01/09/20 01/10/20 History donepezil 10 mg PO DAILY 01/09/20 01/10/20 History isosorbide mononitrate 30 mg PO DAILY 01/09/20 01/10/20 History losartan 25 mg PO DAILY 01/09/20 01/10/20 History melatonin 10 mg PO BEDTIME 01/09/20 01/10/20 History memantine 10 mg PO BID 01/09/20 01/10/20 History quetiapine 50 mg PO BEDTIME 01/09/20 01/10/20 History quetiapine 100 mg PO BEDTIME 01/09/20 01/10/20 History sennosides [senna] 17.2 mg PO DAILY PRN 01/09/20 01/10/20 History simvastatin 20 mg PO BEDTIME 01/09/20 01/10/20 History trazodone 100 mg PO BEDTIME 01/09/20 01/10/20 History Physical Exam Vital Signs: Vital Signs: Vital Signs Temp Pulse Resp BP Pulse Ox 01/18/20 16:00 98.6 F 85 18 118/54 L 99 01/18/20 12:00 97.9 F 72 19 133/50 L 98 01/18/20 10:32 76 146/65 H 01/18/20 09:11 91 L 01/18/20 09:00 87 L 01/18/20 08:00 97 F 76 16 146/65 H 94 01/18/20 03:31 96.9 F 60 18 113/68 96 01/17/20 23:26 96.7 F L 84 18 144/73 H 100 Body Mass Index 32.3 Const: General: confusion (baseline) Orientation/consciousness: confusion (baseline) Neuro: General: confusion (baseline)
[2020-01-19] MEDS: 0.9 % Sodium Chloride Flush 3 ML SYRINGE 2 ML IVFLUSH ×3 (02:53→15:35)
[2020-01-19 03:18] VITALS: BP 125/50; PULSE 75; RESP 18; TEMP 36; O2SAT 98
[2020-01-19 06:09] LABS: Hematocrit 35.8 % (37-47); Hemoglobin 11.2 g/dl (12.0-16.0); Mean Corpuscular HGB Conc 31.3 g/dl (31.0-35.0); Mean Corpuscular Hemoglobin 25.6 pg (27.0-33.0); Mean Corpuscular Volume 81.7 fL (80-98); Mean Platelet Volume 9.1 fL (9.4-12.3); Platelet Count 394 X10*3/uL (160-400); Red Blood Count 4.38 X10*6/uL (4.20-5.50); Red Cell Distribution Width 13.3 % (11.0-16.0); White Blood Count 13.5 X10*3/uL (4.8-10.8)
[2020-01-19 07:52] VITALS: BP 115/56; PULSE 76; RESP 16; TEMP 36.6; O2SAT 98
[2020-01-19 07:57] LABS: Glucose, Whole Blood 113 mg/dL (60-115)
[2020-01-19] MEDS: Enoxaparin Sodium 80 MG/0.8 ML SYRINGE 70 MG SUBCUT ×2 (08:33→16:56)
[2020-01-19 08:34] VITALS: BP 115/56; PULSE 76
[2020-01-19] MEDS: dexAMETHasone sod phosphate 4 MG/ML VIAL 6 MG IVPUSH (08:34)
[2020-01-19] MEDS: Aspirin Enteric Coated 81 MG TABLET.DR PO (08:34)
[2020-01-19] MEDS: Isosorbide Mononitrate 30 MG TAB.ER.24H PO (08:34)
[2020-01-19] MEDS: Docusate Sodium 100 MG CAPSULE PO (08:34)
[2020-01-19 08:35] VITALS: BP 115/56; PULSE 76
[2020-01-19] MEDS: amLODIPine Besylate 5 MG TABLET PO (08:35)
[2020-01-19] MEDS: Losartan Potassium 25 MG TABLET PO (08:35)
[2020-01-19 11:11] VITALS: BP 130/66; PULSE 74; RESP 16; TEMP 36.3
[2020-01-19 11:42] LABS: Glucose, Whole Blood 198 mg/dL (60-115)
[2020-01-19] MEDS: Insulin Lispro 100 UNIT/ML 3 ML VIAL SUBCUT (12:03)
--- NOTE | 2020-01-19 13:03 | MHC.CM.PN ---
T/C to pts son, Vladislav ([phone]) to discuss DC planning. Vladislav reports he plans to take the pt home where he provides all of her needed care. Vladislav reports she has a visiting nurse that comes 3x/wk. Pt will be transprted via BLS
[2020-01-19 14:00] VITALS: O2SAT 95
--- NOTE | 2020-01-21 14:32 | P.DS_ITS ---
DS: Providers Provider Date of admission: 01/19/20 20:24 Primary care physician: Amber Mendiola MD Consults: 01/15/20 07:29 Consult to Infectious Diseases Routine Consulting Provider: Cecily Escobedo Reason for consultation: covid Has provider been notified: No DS: Diagnosis Discharge Diagnosis (1) COVID-19 virus infection: Status: Acute (2) Acute respiratory failure with hypoxia: Status: Acute (3) Diabetes mellitus, type 2: Status: Acute (4) Pneumonia: Status: Acute (5) Viral infection: Status: Acute DS: Summary Hospital Course Hospital Course: HPI:84-year-old female with past medical history of hypertension, diabetes and Alzheimer's who is brought in to the hospital by her son due to multiple complaints including cough, shortness of breath, and fever. History is mostly obtained from her son at bedside as patient has Alzheimer's and unable to give much history. According to her son, he woke up to his mom coughing severely last night as well as showing signs of shortness of breath. It appears the patient has been having some sort of dyspnea for the past 1 week as well as fevers of up to 103. he spoke to her nurse in a.m. and she asked him to bring her to the hospital. Her son denies patient having any recent sick contacts or travel. Patient is mostly bedbound. He reports that she has not complained to him of any other symptoms. On arrival to the ED hemodynamically stable with no significant abnormal vitals satting 90-97%. Patient has been placed on 2 L of O2. Labs are significant for hemoglobin of 11.5, corrected sodium of around 136, BUN of 18, negative UA, high sensitivity troponin of [address] of the chest shows diffuse peripheral ground-glass parenchymal opacities concerning for an atypical multifocal pneumonia with features of COVID-19 past medical history includes: Alzheimer's dementia, diabetes, hypertension, osteoarthritis, CVA Hospital course problem berger section: 1. patient thought to have Pneumonia due to COVID-19 infection: COVID PCR positive: initially was on antibiotics ceftriaxone azithromycin, and also Ventimask required 50% oxygen also had elevated WBC, CRP: subsequently dexamethasone added in addition to above. also had elevated D-dimer patient placed on therapeutic Lovenox, case discussed with Dr. Escobedo from Infectious Disease she recommend Eliquis twice daily for 2 months,will continue O2 support cough medication, discussed home medications with son Vladislav he said patient is not taking any medications for dementia therefore off Aricept and Namenda. continue Seroquel 100 mg and discontinue additional Seroquel 50 mg, patient a lso not taking melatonin. with above management patient-clinically doing well but have persistent hypoxia , of Ventimask. Non does not require oxygen any more, setting fine on the room air CRP trending down , Mild leukocytosis probably reactive to steroids. no cough, no shortness of breath, no further fevers, as per staff and patient's son seems at her baseline. continue dexamethsone at home , given eliquez 1 month supply for the supply as per PCP out patiently. 2)Adult failure to thrive/weakness related to COVID infection-seems po intake improving. 3)Dementia stable, patient no longer taking any dementia medications,no behavioral issues. 4)DM--fs flactuating: seems 130-200's range - elevated BS level hemoglobin A1c 7.9. continue on current insulin regimen. Above management discussed with the patient family in detail length. time spent 50 minutes and 50% time spent on counseling. Significant findings: As above. Procedures performed: None. Treatment and response: As above. Complications: None. Time Spent with Patient Time attestation: Total time spent providing and/or coordinating discharge services: Physical Exam Vital Signs: Vital Signs: Body Mass Index 32.3 physical exam: Cvs: rrr, [id number] . res: Grossly fair air entry, slightly diminished at bases, unable to evaluate more patient is slightly noncooperative. abd: no rebound or guarding ,nt, bs present. ext pulses present , no cyanosis neuro: axo3 , nonfocal. Discharge Plan Discharge Patient Disposition: Home Health Service Referrals: [facility] [Outside] Amber Mendiola MD [Primary Care Provider] - Discharge Medications: New Lantus U-100 Insulin 100 unit/mL Solution 14 unit subcut BEDTIME Qty: 10 RF: 0 magnesium hydroxide [Milk of Magnesia] 400 mg/5 mL Suspension 30 ml PO DAILY PRN (Reason: Constipation) Qty: 3000 RF: 0 Eliquis 5 mg tablet 5 mg PO BID Qty: 60 RF: 0 dexamethasone 4 mg tablet 8 mg PO DAILY Qty: 6 RF: 0 Continued amlodipine 5 mg tablet 5 mg PO DAILY RF: 0 aspirin 81 mg tablet,delayed release (DR/EC) 81 mg PO DAILY RF: 0 melatonin 10 mg capsule 10 mg PO BEDTIME RF: 0 sennosides [senna] 8.6 mg tablet 17.2 mg PO DAILY PRN (Reason: constipation) RF: 0 isosorbide mononitrate 30 mg tablet extended release 24 hr 30 mg PO DAILY RF: 0 quetiapine 100 mg tablet 100 mg PO BEDTIME RF: 0 trazodone 100 mg tablet 100 mg PO BEDTIME RF: 0 simvastatin 20 mg tablet 20 mg PO BEDTIME RF: 0 losartan 25 mg tablet 25 mg PO DAILY RF: 0 docusate sodium 100 mg capsule 100 cap PO BID PRN (Reason: Constipation) RF: 0 quetiapine 50 mg tablet 50 mg PO BEDTIME RF: 0 Discontinued donepezil 10 mg tablet 10 mg PO DAILY RF: 0 memantine 10 mg tablet 10 mg PO BID RF: 0 Discharge Orders: Discharge Order (Routine); Ordered 01/19/20 Ordered By: Fadi Serra Diet: advance to your usual diet Activity on Discharge: As tolerated Discharge Date/Time: 01/19/20 18:06 Visit Report Forms: Patient Portal Discharge page Care Plan Goals: patient was treated with dexamethasone and antibiotics initially ceftriaxone and azithromycin, oxygen: Subsequently patient's shortness of breath improved significantly and off oxygen now patient is going home with dexamethasone as we ll as Eliquis since is deemed dimer was elevated and ID recommended to anticoagulation for 2 months, patient was given 1 month's supply of Eliquis upon discharge. Health Concerns: as above. Plan of Treatment: as above.
== END 2020-01-19 18:06 | disposition home health service (06) | DRG 177 ==
LOC: HO.ED 19:08 → HO.IMC 20:32
PROVIDERS: Hospitalist; Internal Medicine; Admitting Provider Internal Medicine; Emergency Provider Emergency Medicine; PCP Internal Medicine; Visit Provider Internal Medicine
DX: U07.1 COVID-19 (principal); J12.89 Other viral pneumonia; J96.01 Acute respiratory failure with hypoxia; G30.9 Alzheimer's disease, unspecified; E66.01 Morbid (severe) obesity due to excess calories; Z68.32 Body mass index [BMI] 32.0-32.9, adult; I10 Essential (primary) hypertension; F02.80 Dementia in other diseases classified elsewhere, unspecified severity, without behavioral disturbance, psychotic disturbance, mood disturbance, and anxiety; E11.9 Type 2 diabetes mellitus without complications; Z79.4 Long term (current) use of insulin; Z79.01 Long term (current) use of anticoagulants; Z79.82 Long term (current) use of aspirin; Z79.899 Other long term (current) drug therapy
CPT/HCPCS: 36415; 71045; 71250; 80048; 80076; 81001; 82728; 82947; 83036; 83605; 83615; 83735; 83880; 84145; 84484; 85007; 85025; 85027; 85379; 85610; 85730; 86140; 86769; 87040; 87635; 96365; 96375; 99284; 99285; J0456; J0696; J1100; J1650; J2405

== ENCOUNTER 2023-04-21 11:04 | Observation (INO) | payer OTHER, MEDICAID, SELFPAY ==
[2023-04-21] VITALS (10 sets, daily range): BP systolic 98–168; BP diastolic 38–97; PULSE 80–102; RESP 12–18; TEMP 36.2–37.3; O2SAT 94–100; BMI 25.8
--- NOTE | ~2023-04-21 | CT_ITS ---
EXAMINATION: CT ABDOMEN AND PELVIS WITH CONTRAST CLINICAL INFORMATION: Vomiting, abdominal tenderness. COMPARISON: CT chest 01/09/2020 TECHNIQUE: Multidetector volumetric images were obtained from the superior aspect of the liver through the pubic symphysis following administration 85 mL of Omnipaque 350 intravenous contrast. Sagittal and coronal reformatted images were obtained on the technologist's workstation. Oral contrast: No This CT examination was performed using dose optimization techniques as appropriate, variously including the following: *Automated exposure control *Adjustment of mA and/or kV according to patient size (this includes techniques or standardized protocols for targeted exams where dose is matched to indication/reason for exam; i.e. extremities or head) *Use of iterative reconstruction technique DLP: 701 mGy-cm FINDINGS: LUNG BASES: There is bibasilar dependent atelectasis. Heart size is normal. Mild coronary artery calcifications are present. LIVER, GALLBLADDER, AND BILIARY TREE: The liver is normal in size, shape, and attenuation. No focal hepatic lesion or biliary ductal dilatation is present. The gallbladder has been surgically removed. PANCREAS: The pancreas is atrophic SPLEEN: The spleen is unremarkable. 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 ADRENAL GLANDS: Unremarkable. KIDNEYS AND URETERS: The kidneys are normal in size, shape, and attenuation. No hydronephrosis, hydroureter, or calculi seen. No perinephric stranding. BLADDER: The bladder is nondistended. There is a punctate calcification along the right bladder wall, nonspecific. Mild wall thickening seen likely due to underdistention.. GASTROINTESTINAL TRACT: There is scattered stool and gas seen throughout the colon without any significant distention. The small bowel loops are normal caliber. Cecum and ileocecal junction lies in the right upper quadrant. Appendix is not seen There is no inflammatory changes or free fluid seen. ABDOMINAL WALL: No significant hernia is appreciated. LYMPH NODES: No abnormal lymph nodes seen. VASCULAR: Unremarkable. PELVIC VISCERA: There is a soft tissue mass/density seen in distal anus extending into the perirectal soft tissues. Please note inferior pelvis is not in view. OSSEOUS STRUCTURES: Mild disc changes L5-S1 disc level. No aggressive lytic or sclerotic process seen. CT/CT abdomen pelvis w IV con IMPRESSION: There is a soft tissue mass in the anal and perianal region. The ischiorectal fossa is normal. Recommend clinical correlation examination No abnormal abnormal pelvic, inguinal or retroperitoneal lymphadenopathy. Fleischner guidelines were followed.
--- NOTE | ~2023-04-21 | XR_ITS ---
EXAMINATION: XR CHEST CLINICAL INFORMATION: Fever. COMPARISON: CT chest 01/09/2020 TECHNIQUE: Frontal view of the chest was obtained. FINDINGS: The lungs are hypoexpanded but clear. The heart size and pulmonary vascularity is normal. There is moderate right para midline spondylosis. No aggressive lytic process seen. Patient has fever kyphotic deformity of cervical thoracic spine. XR/XR chest 1V IMPRESSION: 1. Hypoexpanded lungs without acute process. 2. Moderate right para midline spondylosis. .
--- NOTE | 2023-04-21 11:37 | ECG_ITS ---
Test Reason : WEAKNESS Blood Pressure : / mmHG Vent. Rate : 105 BPM Atrial Rate : 000 BPM P-R Int : 000 ms QRS Dur : 088 ms QT Int : 336 ms P-R-T Axes : 000 -25 101 degrees QTc Int : 444 ms Atrial fibrillation with rapid ventricular response Low voltage QRS Cannot rule out Anterior infarct , age undetermined Abnormal ECG When compared with ECG of 09-JAN-2020 13:08, Atrial fibrillation has replaced Sinus rhythm Minimal criteria for Anterior infarct are now Present Nonspecific T wave abnormality, worse in Lateral leads Referred By: Dominic Westbrook Electronically Signed By:KAYLI CORCORAN MD
--- NOTE | 2023-04-21 11:42 | ED_ITS ---
HPI - General Adult General Chief complaint: Nausea/Vomiting/Diarrhea Stated complaint: VOMITING NON VERBAL Time Seen by Provider: 04/21/23 11:36 History of Present Illness HPI narrative: The patient is an 87-year-old female with a history of significant dementia who lives at home with her son. Her son is also her PRINCIPAL ADMINISTRATIVE CLERK. Apparently the patient had vomiting last night and seemed done well this morning. The son called an ambulance and she was brought to the hospital. The patient is significantly demented and is unable to give any history. Related Data Home Medications Medication Instructions Recorded Confirmed amlodipine 5 mg tablet 5 mg PO DAILY 01/09/20 01/10/20 aspirin 81 mg tablet,delayed 81 mg PO DAILY 01/09/20 01/10/20 release docusate sodium 100 mg capsule 100 cap PO BID PRN Constipation 01/09/20 01/10/20 isosorbide mononitrate 30 mg 30 mg PO DAILY 01/09/20 01/10/20 tablet,extended release 24 hr losartan 25 mg tablet 25 mg PO DAILY 01/09/20 01/10/20 melatonin 10 mg capsule 10 mg PO BEDTIME 01/09/20 01/10/20 quetiapine 100 mg tablet 100 mg PO BEDTIME 01/09/20 01/10/20 quetiapine 50 mg tablet 50 mg PO BEDTIME hallucinations 01/09/20 01/10/20 sennosides 8.6 mg tablet (senna) 17.2 mg PO DAILY PRN constipation 01/09/20 01/10/20 simvastatin 20 mg tablet 20 mg PO BEDTIME 01/09/20 01/10/20 trazodone 100 mg tablet 100 mg PO BEDTIME 01/09/20 01/10/20 Previous Rx's Medication Instructions Recorded apixaban 5 mg tablet (Eliquis) 5 mg PO BID #60 tabs 01/19/20 dexamethasone 4 mg tablet 8 mg (2 x 4 mg) PO DAILY #6 tabs 01/19/20 insulin glargine 100 unit/mL 14 unit (0.14 mL) subcut BEDTIME 01/19/20 subcutaneous solution (Lantus #10 mL U-100 Insulin) magnesium hydroxide 400 mg/5 mL 30 ml PO DAILY PRN Constipation 01/19/20 oral suspension (Milk of Magnesia) #3,000 mL Allergies Allergy/AdvReac Type Severity Reaction Status Date / Time No Known Allergies Allergy Unverified 12/26/19 19:02 [No Known Allergies*] Review of Systems 2 Review of Systems: Yes Unobtainable due to mental status PMFSH Past Medical History Onset Date is defined in the Problem List Problems that require an onset date and time if occurred within 24 hrs of arrival to the ED Aortic Dissection and Rupture; Neurologic impairment; Cardiopulmonary Arrest; Endotracheal Intubation; Insertion or Replacement of Mechanical Circulatory Assist Device Medical History (Updated 04/21/23 @ 17:33 by Dominic Westbrook MD) COVID-19 virus infection Arthritis Hypertension Diabetes mellitus, type 2 Social History Social History Household Members: Children Household Members Other:: Lives with son who is surface hydrologist Housing: Unknown / Unable to assess Do you presently have visiting nurse or other home services: No Unable to assess alcohol history related to: Unable to respond Comment: barrier cream, heel boots, and pillows applied Advance Directives: No Advance Directives Information Provided: No service: No Current occupational status: retired Physical Exam ED Vital Signs: Vital Signs - 24 hr 04/21/23 11:19 04/21/23 12:15 04/21/23 12:46 Temperature 99.1 F Pulse Rate 84 102 H 101 H Respiratory Rate 14 14 13 Blood Pressure 98/38 L 134/82 163/82 H Pulse Oximetry 100 Oxygen Delivery Method Room Air 04/21/23 13:16 04/21/23 15:43 04/21/23 17:05 Temperature 98.7 F 98.2 F Pulse Rate 101 H 97 99 Respiratory Rate 13 16 16 Blood Pressure 140/65 H 168/97 H 133/66 Pulse Oximetry 95 97 Oxygen Delivery Method Room Air Room Air BMI result Body Mass Index 25.8 Const Other: The patient is a very chronically ill-appearing 87-year-old who is obviously demented. She makes frequent unusual vocalizations but does not speak anything comprehensible. She seemed awake but not very responsive. HENMT Other: Mucous membranes moist. Eyes Other: Pupils are round equal, conjunctivae clear Neck Other: No JVD Resp Other: Lungs are fairly clear bilaterally Cardio Other: She has an irregular rate and rhythm with no murmur GI Other: The abdominal exam was challenging because of the patient's dementia and because of her frequent abnormal vocalizations. My initial impression was that she seemed possibly tender in her abdomen. It was not a reliable exam however. On rectal exam there was no apparent perirectal mass. There was stool in the rectum and I did not appreciate any rectal or perirectal mass by digital exam either. Back/Spine/Pelvis Other: There was some very mild early skin breakdown over the sacrum. Skin Other: The skin was pale and dry. Very minimal skin breakdown in the region of the sacrum. Neuro Other: The patient was obviously quite demented. She made frequent unusual vocalizations which are apparently baseline for her. No obvious lateralizing findings. Extrem Other: No significant peripheral edema. No calf swelling or tenderness. Medications Administered Discontinued Medications Generic Name Dose Route Start Last Admin Trade Name Horacio PRN Reason Stop Dose Admin Sodium Chloride 1,000 mls @ 999 mls/hr 04/21/23 11:45 04/21/23 13:15 Ns IV 04/21/23 12:45 Infused .Q1H1M ROMA Infusion Ceftriaxone Sodium 2 gm/ 50 mls @ 100 mls/hr 04/21/23 12:27 04/21/23 13:15 Sodium Chloride IV 04/21/23 12:56 Infused ONCE ONE Infusion Metronidazole 500 mg in 100 mls @ 100 mls/hr 04/21/23 12:27 04/21/23 14:30 Flagyl IV 04/21/23 13:26 Infused ONCE ONE Infusion Sodium Chloride 1,000 mls @ 999 mls/hr 04/21/23 13:45 04/21/23 15:30 Ns IV 04/21/23 14:45 Infused .Q1H1M ROMA Infusion Iohexol 85 ml 04/21/23 13:45 04/21/23 13:46 Iohexol 350 Mg/Ml 100 Ml Infus..Btl IV 04/21/23 13:46 85 ml ONCE ONE Administration Medical Decision Making Medical Decision Making MDM Narrative: The patient is an 87-year-old woman with a history of severe dementia who lives at home. She is cared for by her family and a PRINCIPAL ADMINISTRATIVE CLERK. She apparently had vomiting overnight last night and she seemed done well this morning. When she 1st arrived her blood pressure was 98/38 and her rectal temperature was 99.1 degrees. It seems likely that this would be a case of sepsis and so blood cultures and a lactate were drawn and she was started on antibiotics with a sense that she might have an intra-abdominal source of sepsis. [place] [address]. The patient's workup for a source of fever however is largely negative. Her chest x-ray was clear. Her urinalysis is clean. A CT of her abdomen and pelvis does not show any clear source of fever. The CT describes a kashmir rectal or perianal mass in the pelvis with recommendation for clinical correlation. Clinically on examination of her perineum and on digital rectal exam I do not appreciate any significant mass or abnormality to correspond to the description of the CT finding. Patient's initial lactate was elevated at 3.5. She was given IV hydration. Her blood pressures improved. She was never found to have a fever higher than 99.1. Somewhat surprisingly her 2nd lactate was 3.5 and a 3rd lactate is now 3.9. The patient's son had arrived prior to the 3rd lactate. The patient's son indicated that he thought the patient looked much better and that she seemed back to her baseline (she seemed much the same to me). Despite this given the rising lactate I think that hospitalization for further evaluation and hydration is probably prudent. Lab Data 04/21/23 17:02 04/21/23 11:47 Labs: Lab Results 04/21/23 04/21/23 04/21/23 Range/Units 11:47 12:52 14:10 WBC 18.2 H (4.8-10.8) X10*3/uL RBC 4.80 (4.20-5.50) X10*6/uL Hgb 12.7 (12.0-16.0) g/dl Hct 39.7 (37.0-47.0) % MCV 82.7 (80.0-98.0) fL MCH 26.5 L (27.0-33.0) pg MCHC 32.0 (31.0-35.0) g/dl RDW 13.5 (11.0-16.0) % Plt Count 239 (160-400) X10*3/uL MPV 10.1 (9.4-12.3) fL Immature Gran % (Auto) 0.5 H (0.0-0.4) % Neut % (Auto) 91.0 H (45-73) % Lymph % (Auto) 3.3 L (20-40) % [place] % (Auto) 4.9 (2-11) % Eos % (Auto) 0.0 (0-4) % Baso % (Auto) 0.3 (0-2) % Lymph # (Auto) 0.6 L (1.2-4.9) X10*3/uL [place] # (Auto) 0.9 (0.1-1.2) X10*3/uL Eos # (Auto) 0.0 (0.0-0.4) X10*3/uL Baso # (Auto) 0.1 (0.0-0.2) X10*3/uL Abs Immat Gran (auto) 0.09 H (0.00-0.03) X10*3/uL Absolute Neuts (auto) 16.6 H (2.0-8.3) x10*3/uL Absolute Nucleated RBC 0.000 (0.0-0.012) X10*3/uL Nucleated RBC % (auto) 0.0 (0.0-0.2) /100WBC Smear Tech's Comments VERIFIED VBG pH (7.32-7.43) VBG pCO2 mmHg VBG pO2 mmHg VBG HCO3 (22-26) mmol/L VBG O2 Saturation % VBG Base Excess mmol/L Sodium 138 (135-145) mmol/L Potassium 3.6 (3.3-5.1) mmol/L Chloride 102 (96-108) mmol/L Carbon Dioxide 27 (22-29) mmol/L Anion Gap 13 (12-20) BUN 20 H (9-16) mg/dL Creatinine 0.74 (0.5-1.4) mg/dL Estim Creat Clear Calc 41.5 Estimated GFR > 60 Random Glucose 267 H (60-115) mg/dL Lactic Acid 3.5 H* (0.5-2.0) mmol/L Lactic Acid F/U @ 2Hr 3.7 H* (0.5-2.0) mmol/L Lactic Acid F/U @ 4Hr (0.5-2.0) mmol/L Calcium 9.5 (8.4-10.2) mg/dL Magnesium 2.1 (1.6-2.6) mg/dL Total Bilirubin 0.5 (0.0-1.0) mg/dL Direct Bilirubin 0.2 (0.0-0.5) mg/dL AST 32 H (5-31) U/L ALT 53 H (0-31) U/L Alkaline Phosphatase 61 (39-117) U/L Troponin I High Sens 18.5 H 18.5 H (<3.5-17.0) ng/L C-Reactive Protein 2.67 H (< or = 0.50) mg/dL B-Natriuretic Peptide 28 (<100) pg/mL Total Protein 7.1 (6.5-8.0) g/dL Albumin 4.1 (3.5-5.0) g/dL Lipase 6 L (8-78) U/L Urine Color Yellow Urine Appearance Clear Urine pH 6.5 (5.0-9.0) Ur Specific [place] 1.015 (1.005-1.025) Urine Protein 100 (2+) H (Neg-Trace) mg/dL Urine Glucose (UA) 250 H (Negative) mg/dL Urine Ketones Negative (Negative) mg/dL Urine Blood Negative (Negative) Urine Nitrite Negative (Negative) Ur Leukocyte Esterase Negative (Negative) Urine RBC 0-2 (0-2) /HPF Urine WBC 0-5 (0-5) /HPF Ur Squamous Epith Cells 0-2 (0-2) /HPF Urine Bacteria None Seen (None Seen) Hyaline Casts 0-2 (0-2) /LPF 04/21/23 04/21/23 Range/Units 14:15 17:02 WBC 16.7 H (4.8-10.8) X10*3/uL RBC 4.74 (4.20-5.50) X10*6/uL Hgb 12.1 (12.0-16.0) g/dl Hct 39.2 (37.0-47.0) % MCV 82.7 (80.0-98.0) fL MCH 25.5 L (27.0-33.0) pg MCHC 30.9 L (31.0-35.0) g/dl RDW 13.6 (11.0-16.0) % Plt Count 217 (160-400) X10*3/uL MPV 9.6 (9.4-12.3) fL Immature Gran % (Auto) 0.5 H (0.0-0.4) % Neut % (Auto) 87.4 H (45-73) % Lymph % (Auto) 6.3 L (20-40) % [place] % (Auto) 5.6 (2-11) % Eos % (Auto) 0.0 (0-4) % Baso % (Auto) 0.2 (0-2) % Lymph # (Auto) 1.1 L (1.2-4.9) X10*3/uL [place] # (Auto) 0.9 (0.1-1.2) X10*3/uL Eos # (Auto) 0.0 (0.0-0.4) X10*3/uL Baso # (Auto) 0.0 (0.0-0.2) X10*3/uL Abs Immat Gran (auto) 0.09 H (0.00-0.03) X10*3/uL Absolute Neuts (auto) 14.6 H (2.0-8.3) x10*3/uL Absolute Nucleated RBC 0.000 (0.0-0.012) X10*3/uL Nucleated RBC % (auto) 0.0 (0.0-0.2) /100WBC Smear Tech's Comments VBG pH 7.44 H (7.32-7.43) VBG pCO2 37 mmHg VBG pO2 88 mmHg VBG HCO3 25 (22-26) mmol/L VBG O2 Saturation 97.0 % VBG Base Excess 1.6 mmol/L Sodium (135-145) mmol/L Potassium (3.3-5.1) mmol/L Chloride (96-108) mmol/L Carbon Dioxide (22-29) mmol/L Anion Gap (12-20) BUN (9-16) mg/dL Creatinine (0.5-1.4) mg/dL Estim Creat Clear Calc Estimated GFR Random Glucose (60-115) mg/dL Lactic Acid (0.5-2.0) mmol/L Lactic Acid F/U @ 2Hr (0.5-2.0) mmol/L Lactic Acid F/U @ 4Hr 3.9 H* (0.5-2.0) mmol/L Calcium (8.4-10.2) mg/dL Magnesium (1.6-2.6) mg/dL Total Bilirubin (0.0-1.0) mg/dL Direct Bilirubin (0.0-0.5) mg/dL AST (5-31) U/L ALT (0-31) U/L Alkaline Phosphatase (39-117) U/L Troponin I High Sens (<3.5-17.0) ng/L C-Reactive Protein (< or = 0.50) mg/dL B-Natriuretic Peptide (<100) pg/mL Total Protein (6.5-8.0) g/dL Albumin (3.5-5.0) g/dL Lipase (8-78) U/L Urine Color Urine Appearance Urine pH (5.0-9.0) Ur Specific [place] (1.005-1.025) Urine Protein (Neg-Trace) mg/dL Urine Glucose (UA) (Negative) mg/dL Urine Ketones (Negative) mg/dL Urine Blood (Negative) Urine Nitrite (Negative) Ur Leukocyte Esterase (Negative) Urine RBC (0-2) /HPF Urine WBC (0-5) /HPF Ur Squamous Epith Cells (0-2) /HPF Urine Bacteria (None Seen) Hyaline Casts (0-2) /LPF Discharge Plan Discharge Clinical Impression: Vomiting, Elevated lactic acid level, Dementia Patient Disposition: Still a Patient Prescriptions: No Action amlodipine 5 mg tablet 5 mg PO DAILY aspirin 81 mg tablet,delayed release (DR/EC) 81 mg PO DAILY melatonin 10 mg capsule 10 mg PO BEDTIME sennosides [senna] 8.6 mg tablet 17.2 mg PO DAILY PRN (Reason: constipation) isosorbide mononitrate 30 mg tablet extended release 24 hr 30 mg PO DAILY quetiapine 100 mg tablet 100 mg PO BEDTIME trazodone 100 mg tablet 100 mg PO BEDTIME simvastatin 20 mg tablet 20 mg PO BEDTIME losartan 25 mg tablet 25 mg PO DAILY docusate sodium 100 mg capsule 100 cap PO BID PRN (Reason: Constipation) quetiapine 50 mg tablet 50 mg PO BEDTIME Lantus U-100 Insulin 100 unit/mL Solution 14 unit subcut BEDTIME Qty: 10 0RF magnesium hydroxide [Milk of Magnesia] 400 mg/5 mL Suspension 30 ml PO DAILY PRN (Reason: Constipation) Qty: 3000 0RF Eliquis 5 mg tablet 5 mg PO BID Qty: 60 0RF dexamethasone 4 mg tablet 8 mg PO DAILY Qty: 6 0RF
[2023-04-21] MEDS: 0.9 % Sodium Chloride 1,000 ML 999 ML IV ×2 (11:45→14:03)
[2023-04-21 11:57] LABS: Basophils Absolute Auto 0.1 X10*3/uL (0.0-0.2); Basophils Percent Auto 0.3 % (0-2); Hematocrit 39.7 % (37.0-47.0); Hemoglobin 12.7 g/dl (12.0-16.0); Imm Gran Abs Auto 0.09 X10*3/uL (0.00-0.03); Imm Gran Pct Auto 0.5 % (0.0-0.4); Lymphocytes Absolute Auto 0.6 X10*3/uL (1.2-4.9); Lymphocytes Percent Auto 3.3 % (20-40); MANUAL DIFF FLAG SCAN; Mean Corpuscular Hemoglobin 26.5 pg (27.0-33.0); Mean Corpuscular Volume 82.7 fL (80.0-98.0); Mean Platelet Volume 10.1 fL (9.4-12.3); Monocytes Absolute Auto 0.9 X10*3/uL (0.1-1.2); Monocytes Percent Auto 4.9 % (2-11); Neutrophils Absolute Auto 16.6 x10*3/uL (2.0-8.3); Platelet Count 239 X10*3/uL (160-400); Red Cell Distribution Width 13.5 % (11.0-16.0); SCAN SMEAR FLAG 1; White Blood Count 18.2 X10*3/uL (4.8-10.8)
[2023-04-21 12:12] LABS: Alanine Aminotransferase 53 U/L (0-31); Albumin Level 4.1 g/dL (3.5-5.0); Alkaline Phosphatase 61 U/L (39-117); Anion Gap 13 (12-20); Aspartate Amino Transferase 32 U/L (5-31); Bilirubin Direct 0.2 mg/dL (0.0-0.5); Bilirubin Total 0.5 mg/dL (0.0-1.0); Blood Urea Nitrogen 20 mg/dL (9-16); C Reactive Protein 2.67 mg/dL (< or = 0.50); Calcium 9.5 mg/dL (8.4-10.2); Carbon Dioxide 27 mmol/L (22-29); Chloride 102 mmol/L (96-108); Creatinine Clr Calc Pharmacy 41.5; Estimated Glomerular Filt Rate > 60; Glucose Random 267 mg/dL (60-115); Lipase 6 U/L (8-78); Magnesium 2.1 mg/dL (1.6-2.6); Potassium 3.6 mmol/L (3.3-5.1); Sodium 138 mmol/L (135-145); Total Protein 7.1 g/dL (6.5-8.0)
[2023-04-21 12:16] LABS: B Type Natriuretic Peptide 28 pg/mL (<100); Lactic Acid 3.5 mmol/L (0.5-2.0)
[2023-04-21 12:22] LABS: Troponin-I High Sensitivity 18.5 ng/L (<3.5-17.0)
[2023-04-21] MEDS: cefTRIAXone sodium 2 GM in 0.9 % Sodium Chloride 50 ML IV (12:41)
[2023-04-21 12:54] LABS: SLIDE REVIEW VERIFIED
[2023-04-21 12:59] LABS: Appearance Urine Clear; Color Urine Yellow; Glucose Urine UA 250 mg/dL (Negative); Leukocyte Esterase Urine Negative (Negative); Nitrite Urine Negative (Negative); PH 6.5 (5.0-9.0); Specific Gravity - Urine 1.015 (1.005-1.025); UMIC TRIGGER UACC YES; Urine Blood Negative (Negative); Urine Ketones Negative (Negative); Urine Protein 100 (2+) mg/dL (Neg-Trace)
[2023-04-21 13:11] LABS: Bacteria Urine None Seen (None Seen); Hyaline Casts Urine 0-2 /LPF (0-2); RBC Urine 0-2 /HPF (0-2); Squamous Epithelial Cell Urine 0-2 /HPF (0-2); WBC Urine 0-5 /HPF (0-5)
[2023-04-21] MEDS: metroNIDAZOLE/NS 500 MG/100 ML PIGGYBACK 100 MG IV (13:36)
[2023-04-21] MEDS: iohexoL 350 MG/ML 100 ML INFUS..BTL 85 ML IV (13:46)
[2023-04-21 13:53] LABS: Reflex Lactate? Lactic Acid Added
[2023-04-21 14:21] LABS: VBG Base Excess 1.6 mmol/L; VBG HCO3 25 mmol/L (22-26); VBG pCO2 37 mmHg; VBG pH 7.44 (7.32-7.43); VBG pO2 88 mmHg
[2023-04-21 14:23] LABS: Venous Blood Gas Refer to POC result
[2023-04-21 14:48] LABS: ~Lactic Acid-LAB USE ONLY 3.7 mmol/L (0.5-2.0)
[2023-04-21 14:54] LABS: Troponin-I High Sensitivity 18.5 ng/L (<3.5-17.0)
--- NOTE | 2023-04-21 15:22 | PC.NURSE ---
patient has not had any episodes of vomiting since arrival to the ED. had soft blood pressures upon arrival to ED, patient fluid resuscitated with improvement of blood pressures. patient respirations equal and unlabored. patient is non verbal at baseline, will make some noises when you walk into room, opens eyes when you speak to her. patient shows no signs of distress, ticket machine operator has been at bedside, family very involved with her care. patient medicated per JUN, IV in the left wrist #20
--- NOTE | 2023-04-21 15:44 | MHC.EDTECH ---
THIS PCT ASSUMED CARE OF PT AT 1500 ,VITALS TAKEN ,PT WAS REPOSITION AND BOOSTED UP IN BED ,PT DAUGHTER AT BEDSIDE .
[2023-04-21 16:16] LABS: Reflex Lactate? 2 Y
[2023-04-21 17:06] LABS: MANUAL DIFF FLAG NO
--- NOTE | 2023-04-21 17:06 | MHC.EDTECH ---
Patient repeated labs drawn and sent to lab .
[2023-04-21 17:08] LABS: Basophils Percent Auto 0.2 % (0-2); Hematocrit 39.2 % (37.0-47.0); Hemoglobin 12.1 g/dl (12.0-16.0); Imm Gran Abs Auto 0.09 X10*3/uL (0.00-0.03); Imm Gran Pct Auto 0.5 % (0.0-0.4); Lymphocytes Absolute Auto 1.1 X10*3/uL (1.2-4.9); Lymphocytes Percent Auto 6.3 % (20-40); Mean Corpuscular HGB Conc 30.9 g/dl (31.0-35.0); Mean Corpuscular Hemoglobin 25.5 pg (27.0-33.0); Mean Corpuscular Volume 82.7 fL (80.0-98.0); Mean Platelet Volume 9.6 fL (9.4-12.3); Monocytes Absolute Auto 0.9 X10*3/uL (0.1-1.2); Monocytes Percent Auto 5.6 % (2-11); Neutrophils Absolute Auto 14.6 x10*3/uL (2.0-8.3); Neutrophils Percent Auto 87.4 % (45-73); Platelet Count 217 X10*3/uL (160-400); Red Blood Count 4.74 X10*6/uL (4.20-5.50); Red Cell Distribution Width 13.6 % (11.0-16.0); White Blood Count 16.7 X10*3/uL (4.8-10.8)
[2023-04-21 17:21] LABS: ~Lactic Acid-LAB USE ONLY 3.9 mmol/L (0.5-2.0)
--- NOTE | 2023-04-21 17:47 | P.HPHOSP_ITS ---
History of Present Illness Date of Service: 04/21/23 Attending physician on admission: Fadi Serra Chief Complaint: Nausea and vomiting Pt is an 87-year-old female with a PMH significant for?Alzheimer's dementia, persistent AFib on Eliquis, HTN, HLD, and insulin-dependent diabetes type 2 who presents to the ED for evaluation of persistent nausea and vomiting since last night. Patient with severe dementia and is nonverbal at baseline and unable to make her need known, she is accompanied by her son who is her FIELD CREW CHIEF and HCP and provides HPI. Son reports pt began having nausea and vomiting last evening. She was able to sleep some during the night, however, when she woke this morning continued to have nausea and vomiting. Denies hematemesis. Patient called EMS due to intractable nature of nausea and vomiting, though notes last episode of vomiting was shortly after EMS arrived at 11:00. Patient has not vomited since. Son also notes patient has had a mostly nonproductive cough for the past few days. Denies any fever or diarrhea, but notes suffers from chronic constipation. Apparently she has been eating and drinking normally up until last night. Has not had anything to eat or drink by mouth today. In the ED pt was tachycardic up to 102, had slightly elevated temperature of 99.1 degrees, and hypertensive up to 168/97, satting at 97% on RA. Labs were significant for leukocytosis of 18.2, random glucose of 267, initial lactic acid of 3.5 with repeat 3.7 and 3.9, AST 32, ALT 53, initial troponin 18.5 with repeat flat at 18.5, C-reactive protein elevated at 2.67. UA negative for UTI. CXR showed hypoexpanded lungs without acute process. CT of abdomen and pelvis found a soft tissue mass in the anal and perianal region but with ischiorectal fossa normal. Otherwise found no abnormal pelvic, inguinal, or retroperitoneal lymphadenopathy. EKG demonstrated atrial fibrillation with RVR of 105, but no evidence of ST elevations or depressions. In the ED, physical examination did not corroborate CT's finding of potential rectal mass. Pt was treated with 2 L IVF, ceftriaxone, and metronidazole. Pt will be admitted to the hospital under observation for treatment and further evaluation of lactic acidosis. Review of Systems 2 Review of Systems: Unable to obtain d/t pt's mentation [facility] Medical History COVID-19 virus infection Arthritis Hypertension Diabetes mellitus, type 2 Social History Household Members: Children Household Members Other:: Lives with son who is impregnating tank operator Housing: Unknown / Unable to assess Do you presently have visiting nurse or other home services: No Unable to assess alcohol history related to: Unable to respond Comment: barrier cream, heel boots, and pillows applied Patient Tobacco Use Status: Former Tobacco user Quit Date: 50 years ago Second Hand Smoke Exposure: No Advance Directives: No Advance Directives Information Provided: No service: No Current occupational status: retired [employer] Allergies Allergy/AdvReac Type Severity Reaction Status Date / Time No Known Allergies Allergy Unverified 12/26/19 19:02 [No Known Allergies*] Home Medications Medication Instructions Recorded Confirmed Last Taken Type amlodipine 5 mg tablet 5 mg PO DAILY 01/09/20 04/21/23 04/20/23 History aspirin 81 mg tablet,delayed 81 mg PO DAILY 01/09/20 04/21/23 04/20/23 History release melatonin 10 mg capsule 10 mg PO BEDTIME 01/09/20 04/21/23 04/20/23 History quetiapine 100 mg tablet 100 mg PO BEDTIME 01/09/20 04/21/23 04/20/23 History trazodone 100 mg tablet 100 mg PO BEDTIME 01/09/20 04/21/23 04/20/23 History acetaminophen 650 mg 650 mg PO DAILY pain 04/21/23 04/21/23 04/20/23 History tablet,extended release insulin lispro protamine-lispro 18 unit subcut BID 04/21/23 04/21/23 04/20/23 History 100 unit/mL (75-25) subcutaneous pen metformin 500 mg tablet,extended 500 mg PO BID 04/21/23 04/21/23 04/20/23 History release 24 hr rosuvastatin 20 mg tablet 20 mg PO BEDTIME 04/21/23 04/21/23 04/20/23 History Physical Exam 2 Vital Signs and Narrative: Vital Signs: Last Vital Signs Temp 98.2 F 04/21/23 17:05 Pulse 99 04/21/23 17:05 Resp 16 04/21/23 17:05 BP 133/66 01/12/24 17:05 Pulse Ox 97 04/21/23 17:05 O2 Del Method Room Air 04/21/23 17:05 BMI result Body Mass Index 25.8 Constitutional: Alert, confused, nonverbal, incapable of following commands. Constant, uncontrollable grunting. In no acute distress. Mental Status: Not oriented to person, place, time, or situation. Eyes: Pupils are equal, round, and reactive to light. Ear, Nose, and Throat: Oropharynx clear, mucous membranes moist. Ears and nose without deformities. Trachea midline. Poor dentition. Respiratory: Clear to auscultation bilaterally. No wheezing, rales, or rhonchi. Cardiovascular: S1, S2 regular. No murmurs, rubs, or gallops. Gastrointestinal: Abdomen soft, non-tender, non-distended. Normal bowel sounds. Neurologic: Cranial nerves II-XII are grossly intact bilaterally. No focal neurological deficits. Moves all extremities spontaneously. Skin: Warm, dry. Musculoskeletal: No cyanosis or clubbing. Extremities: No edema. Results Labs 04/22/23 06:22 04/22/23 06:22 Labs: Laboratory Results - last 24 hr 04/21/23 04/21/23 04/21/23 11:47 12:52 14:10 MCV 82.7 MCH 26.5 L MCHC 32.0 RDW 13.5 Plt Count 239 MPV 10.1 Immature Gran % (Auto) 0.5 H Neut % (Auto) 91.0 H Lymph % (Auto) 3.3 L [place] % (Auto) 4.9 Eos % (Auto) 0.0 Baso % (Auto) 0.3 Lymph # (Auto) 0.6 L [place] # (Auto) 0.9 Eos # (Auto) 0.0 Baso # (Auto) 0.1 Abs Immat Gran (auto) 0.09 H Absolute Neuts (auto) 16.6 H Absolute Nucleated RBC 0.000 Nucleated RBC % (auto) 0.0 Smear Tech's Comments VERIFIED VBG pH VBG pCO2 VBG pO2 VBG HCO3 VBG O2 Saturation VBG Base Excess Anion Gap 13 Estim Creat Clear Calc 41.5 Estimated GFR > 60 Random Glucose 267 H Lactic Acid 3.5 H* Lactic Acid F/U @ 2Hr 3.7 H* Lactic Acid F/U @ 4Hr Calcium 9.5 Magnesium 2.1 Total Bilirubin 0.5 Direct Bilirubin 0.2 AST 32 H ALT 53 H Alkaline Phosphatase 61 C-Reactive Protein 2.67 H B-Natriuretic Peptide 28 Total Protein 7.1 Albumin 4.1 Lipase 6 L Urine Color Yellow Urine Appearance Clear Urine pH 6.5 Ur Specific [place] 1.015 Urine Protein 100 (2+) H Urine Glucose (UA) 250 H Urine Ketones Negative Urine Blood Negative Urine Nitrite Negative Ur Leukocyte Esterase Negative Urine RBC 0-2 Urine WBC 0-5 Ur Squamous Epith Cells 0-2 Urine Bacteria None Seen Hyaline Casts 0-2 04/21/23 04/21/23 14:15 17:02 MCV 82.7 MCH 25.5 L MCHC 30.9 L RDW 13.6 Plt Count 217 MPV 9.6 Immature Gran % (Auto) 0.5 H Neut % (Auto) 87.4 H Lymph % (Auto) 6.3 L [place] % (Auto) 5.6 Eos % (Auto) 0.0 Baso % (Auto) 0.2 Lymph # (Auto) 1.1 L [place] # (Auto) 0.9 Eos # (Auto) 0.0 Baso # (Auto) 0.0 Abs Immat Gran (auto) 0.09 H Absolute Neuts (auto) 14.6 H Absolute Nucleated RBC 0.000 Nucleated RBC % (auto) 0.0 Smear Tech's Comments VBG pH 7.44 H VBG pCO2 37 VBG pO2 88 VBG HCO3 25 VBG O2 Saturation 97.0 VBG Base Excess 1.6 Anion Gap Estim Creat Clear Calc Estimated GFR Random Glucose Lactic Acid Lactic Acid F/U @ 2Hr Lactic Acid F/U @ 4Hr 3.9 H* Calcium Magnesium Total Bilirubin Direct Bilirubin AST ALT Alkaline Phosphatase C-Reactive Protein B-Natriuretic Peptide Total Protein Albumin Lipase Urine Color Urine Appearance Urine pH Ur Specific [place] Urine Protein Urine Glucose (UA) Urine Ketones Urine Blood Urine Nitrite Ur Leukocyte Esterase Urine RBC Urine WBC Ur Squamous Epith Cells Urine Bacteria Hyaline Casts Imaging Radiologist's Impressions: Impressions Chest X-Ray 04/21/23 13:05 IMPRESSION: 1. Hypoexpanded lungs without acute process. 2. Moderate right para midline spondylosis. . Abdomen/Pelvis CT 04/21/23 14:00 IMPRESSION: There is a soft tissue mass in the anal and perianal region. The ischiorectal fossa is normal. Recommend clinical correlation examination No abnormal abnormal pelvic, inguinal or retroperitoneal lymphadenopathy. Fleischner guidelines were followed. Assessment and Plan (1) Elevated lactic acid level: Status: Acute Plan Pt is an 87-year-old female with a PMH significant for?Alzheimer's dementia, persistent AFib on Eliquis, HTN, HLD, and insulin-dependent diabetes type 2 who presents to the ED for evaluation of persistent nausea and vomiting since last night. Pt will be admitted to the hospital under observation for treatment and further evaluation of elevated lactic acid. Nausea, vomiting Last episode of nausea Unclear etiology: CXR negative, CXR negative, CT of Abd/pelvis negative Pt does not meet SIRS/sepsis criteria: no clear source of bacterial infection Tachycardia secondary to AFib, leukocytosis likely reactionary Pt given ceftriaxone and metronidazole in the ED Will defer additional abx for now as no indication of bacterial infection Will check respiratory viral panel Ondansetron prn Elevated lactic acid Likely secondary to vomiting not sepsis Pt received 2L IVF in ED Will place on maintenance fluids overnight Recheck lactic acid Dementia/mood disorder Appears at baseline Continue quetiapine HLD Continue statin Insulin dependent diabetes type 2 Hold metformin SSI, lantus HTN Continue amlodipine DNR/DNI Attending:?Dr. Serra DVT Prophylaxis: Lovenox Pt will be admitted to the hospital under observation for treatment and further evaluation of elevated lactic acid. Pt will be treated with IVF and close monitoring of labs. Quality Stroke Does the patient have a stroke diagnosis?: No VTE Prior VTE?: No VTE Risk Level:: Medical - moderate - high VTE Device Contraindication: Treatment Not Indicated VTE Drug Contraindication: N/A - Med Ordered
--- NOTE | 2023-04-21 18:10 | PC.NURSE ---
patient sitting up in bed, patient has eaten pudding, apple juice and vanilla ice cream. has had no episodes of vomiting. respirations equal and unlabored, skin PWD. patient shows no signs of distress, family at bedside
--- NOTE | 2023-04-21 18:43 | MHC.EDTECH ---
PATIENT RESP PANEL COLLECTED AND SENT TO LAB ,PT CLEAN AND DRY ,VITALS TAKEN AND BELONGINGS LIST DONE ,PT WILL ONLY HAVE HER HAT HERE .
--- NOTE | 2023-04-21 20:12 | PC.NURSE ---
Pt conscious, nonverbal and unable to respond. Pts ishmael is primary youth care specialist and would like to remain with pt. Pts sons states she doesnt talk or respond to anything. She just makes these noises. Plan of care ongoing.
[2023-04-21 20:55] LABS: Glucose, Whole Blood 211 mg/dL (60-115)
[2023-04-21] MEDS: 0.9 % Sodium Chloride Flush 3 ML SYRINGE IVFLUSH (20:58)
[2023-04-21] MEDS: traZODone HCL 100 MG TABLET PO (23:58)
[2023-04-21] MEDS: Lactated Ringers 1,000 ML 100 ML IVCONT (23:58)
[2023-04-21] MEDS: QUEtiapine Fumarate 100 MG TABLET PO (23:58)
[2023-04-22] MEDS: Enoxaparin Sodium 40 MG/0.4 ML SYRINGE SUBCUT (00:05)
[2023-04-22 00:12] LABS: Glucose, Whole Blood 219 mg/dL (60-115)
[2023-04-22] MEDS: Insulin Glargine,Hum.rec.anlog 100 UNIT/ML 10 ML VIAL 13 UNIT SUBCUT (00:28)
[2023-04-22 03:05] VITALS: BP 103/52; PULSE 78; RESP 18; TEMP 36.7; O2SAT 96
[2023-04-22 07:20] LABS: Hematocrit 34.9 % (37.0-47.0); Hemoglobin 10.9 g/dl (12.0-16.0); Mean Corpuscular HGB Conc 31.2 g/dl (31.0-35.0); Mean Corpuscular Hemoglobin 25.6 pg (27.0-33.0); Mean Corpuscular Volume 82.1 fL (80.0-98.0); Mean Platelet Volume 10.3 fL (9.4-12.3); Platelet Count 185 X10*3/uL (160-400); Red Blood Count 4.25 X10*6/uL (4.20-5.50); Red Cell Distribution Width 13.8 % (11.0-16.0); White Blood Count 8.7 X10*3/uL (4.8-10.8)
[2023-04-22 07:35] VITALS: BP 101/53; PULSE 70; RESP 20; TEMP 36.5; O2SAT 98
[2023-04-22 07:39] LABS: Lactic Acid 1.8 mmol/L (0.5-2.0)
[2023-04-22 07:42] LABS: Anion Gap 10 (12-20); Blood Urea Nitrogen 12 mg/dL (9-16); Calcium 8.9 mg/dL (8.4-10.2); Carbon Dioxide 26 mmol/L (22-29); Chloride 107 mmol/L (96-108); Creatinine Clr Calc Pharmacy 47.2; Estimated Glomerular Filt Rate > 60; Glucose Random 183 mg/dL (60-115); Potassium 3.1 mmol/L (3.3-5.1); Sodium 140 mmol/L (135-145)
--- NOTE | 2023-04-22 07:57 | PHA.MEDREC ---
Pharmacy Consult ? Medication Reconciliation Pharmacy has completed the medication reconciliation.
[2023-04-22 08:01] LABS: Glucose, Whole Blood 169 mg/dL (60-115)
[2023-04-22] MEDS: 0.9 % Sodium Chloride Flush 3 ML SYRINGE IVFLUSH ×2 (08:17→17:00)
[2023-04-22] MEDS: Potassium Chloride Packet 20 MEQ PACKET 40 MEQ PO (08:17)
[2023-04-22] MEDS: Atorvastatin Calcium 80 MG TABLET PO (08:17)
[2023-04-22 09:09] LABS: Adenovirus PCR Not Detected (Not Detect.); Bordetella parapertussis PCR Not Detected (Not Detect.); Bordetella pertussis PCR Not Detected (Not Detect.); Chlamydia pneumoniae PCR Not Detected (Not Detect.); Coronavirus 229E PCR Not Detected (Not Detect.); Coronavirus HKU1 PCR Not Detected (Not Detect.); Coronavirus NL63 PCR Not Detected (Not Detect.); Coronavirus OC43 PCR Not Detected (Not Detect.); Human metapneumovirus PCR Not Detected (Not Detect.); Influenza A PCR Not Detected (Not Detect.); Influenza B PCR Not Detected (Not Detect.); Mycoplasma pneumoniae PCR Not Detected (Not Detect.); Parainfluenza 1 PCR Not Detected (Not Detect.); Parainfluenza 2 PCR Not Detected (Not Detect.); Parainfluenza 3 PCR Not Detected (Not Detect.); Parainfluenza 4 PCR Not Detected (Not Detect.); RSV PCR Not Detected (Not Detect.); Rhino/Enterovirus PCR Not Detected (Not Detect.)
--- NOTE | 2023-04-22 09:26 | MHC.CM.PN ---
Breanna 04/22/23 signed by son / HCP, Vladislav Segura, Pt is non verbal due to advanced Dementia. She requires total care, and has a bakari lift, a hospital bed and recliner in the home. She has a monthly nurse visit from [facility], she had VNA services from [facility] for wound care on her foot, which son said has improved alot. HCP form requested, to be added to chart. Transportation home will be via ambulance. CM to follow and assist as needed with DC planning.
[2023-04-22 10:14] LABS: SARS-CoV-2 PCR Not Detected (Not Detect.)
[2023-04-22 11:07] VITALS: BP 127/54; PULSE 66; RESP 20; TEMP 36.4; O2SAT 97
[2023-04-22] MEDS: Potassium Chloride/H20 10 MEQ/100 ML PIGGYBACK 100 MEQ IV ×2 (11:14→12:25)
[2023-04-22 11:35] LABS: Glucose, Whole Blood 131 mg/dL (60-115)
--- NOTE | 2023-04-22 12:58 | PM.DS ---
DS: Providers Provider Date of Service: 04/22/23 Date of admission: 04/21/23 18:25 Date of discharge: 04/22/23 Primary care physician: MAGGIE Alexandra Attending physician on discharge: Fadi Serra Discharging clinician: Fadi Serra DS: Diagnosis Discharge Diagnosis (1) Elevated lactic acid level: Status: Acute (2) Hypokalemia: Status: Acute DS: Summary Hospital Course Hospital Course: 87-year-old female with a PMH significant for?Alzheimer's dementia, persistent AFib on Eliquis, HTN, HLD, and insulin-dependent diabetes type 2 who presents to the ED for evaluation of persistent nausea and vomiting since last night. Patient with severe dementia and is nonverbal at baseline and unable to make her need known, she is accompanied by her son who is her [employer] TEAM MEMBER and HCP and provides HPI. Son reports pt began having nausea and vomiting last evening. She was able to sleep some during the night, however, when she woke this morning continued to have nausea and vomiting. Denies hematemesis. Patient called EMS due to intractable nature of nausea and vomiting, though notes last episode of vomiting was shortly after EMS arrived at 11:00. Patient has not vomited since. Son also notes patient has had a mostly nonproductive cough for the past few days. Denies any fever or diarrhea, but notes suffers from chronic constipation. Apparently she has been eating and drinking normally up until last night. Has not had anything to eat or drink by mouth today. In the ED pt was tachycardic up to 102, had slightly elevated temperature of 99.1 degrees, and hypertensive up to 168/97, satting at 97% on RA. Labs were significant for leukocytosis of 18.2, random glucose of 267, initial lactic acid of 3.5 with repeat 3.7 and 3.9, AST 32, ALT 53, initial troponin 18.5 with repeat flat at 18.5, C-reactive protein elevated at 2.67. UA negative for UTI. CXR showed hypoexpanded lungs without acute process. CT of abdomen and pelvis found a soft tissue mass in the anal and perianal region but with ischiorectal fossa normal. Otherwise found no abnormal pelvic, inguinal, or retroperitoneal lymphadenopathy. EKG demonstrated atrial fibrillation with RVR of 105, but no evidence of ST elevations or depressions. In the ED, physical examination did not corroborate CT's finding of potential rectal mass. Pt was treated with 2 L IVF, ceftriaxone, and metronidazole. Pt will be admitted to the hospital under observation for treatment and further evaluation of lactic acidosis. Hospital course: patient was admitted for nausea vomiting episode ,found to have acute lactic acidsosis and dehydration,also had leucocytosis, mild tachycardia(likely due to afib and dehydration) : patient started on iv hydration,antiemetics ,respiratory viral panel and blood cultures sent by Ed, in addition ct abd done -seems fine except In the ED, physical examination did not corroborate CT's finding of potential of rectal mass : patient seems to be improve with supportive care ,lactic acidosis resolved ,respiratory viral panel negative , blood cultures still pending at time of discharge but patient is asymptomatic ua ,respiratory panel ,cxr and ct abd seems negative ,so will defer antibiotics for now. blood culture (checked with lab) negative preliminary. hypokalemia -repleted and resolved. patient was advised to follow up with pcp outpatient for blood cultures, also consider outpatient follow with GI for abnormal Ct abd findings above. in addition cut down metformin considering recent nause/vomiting ,dehydration and lactic acidosis. follow up with pcp ( also follow blood culture results outpatiently). above management discussed with patient family in detailed length with staff present -they understands and in agreement with above plan,time spent 50 min. Time Attestation Discharge coordination time: Greater than 30 minutes Quality: Safe Use of Opioids Does Pt have an Active Cancer Diagnosis on the Problem List?: No Quality: Stroke Does the patient have a stroke diagnosis?: No Physical Exam Vital Signs: Vital Signs: Last Vital Signs Temp 97.6 F 04/22/23 11:07 Pulse 66 04/22/23 11:07 Resp 20 04/22/23 11:07 BP 127/54 L 04/22/23 11:07 Pulse Ox 97 04/22/23 11:07 O2 Del Method Room Air 04/22/23 11:07 BMI result Body Mass Index 25.8 DS: Data Data Completed and Pending Labs on day of discharge: Laboratory Results - last 24 hr 04/21/23 04/21/23 04/21/23 11:47 12:52 14:10 WBC RBC Hgb Hct MCV MCH MCHC RDW Plt Count MPV Immature Gran % (Auto) Neut % (Auto) Lymph % (Auto) Bulloch % (Auto) Eos % (Auto) Baso % (Auto) Lymph # (Auto) Bulloch # (Auto) Eos # (Auto) Baso # (Auto) Abs Immat Gran (auto) Absolute Neuts (auto) Absolute Nucleated RBC Nucleated RBC % (auto) Smear Tech's Comments VERIFIED VBG pH VBG pCO2 VBG pO2 VBG HCO3 VBG O2 Saturation VBG Base Excess Sodium Potassium Chloride Carbon Dioxide Anion Gap BUN Creatinine Estim Creat Clear Calc Estimated GFR POC Glucose Random Glucose Lactic Acid Lactic Acid F/U @ 2Hr 3.7 H* Lactic Acid F/U @ 4Hr Calcium Troponin I High Sens 18.5 H Urine Color Yellow Urine Appearance Clear Urine pH 6.5 Ur Specific Cadwell 1.015 Urine Protein 100 (2+) H Urine Glucose (UA) 250 H Urine Ketones Negative Urine Blood Negative Urine Nitrite Negative Ur Leukocyte Esterase Negative Urine RBC 0-2 Urine WBC 0-5 Ur Squamous Epith Cells 0-2 Urine Bacteria None Seen Hyaline Casts 0-2 Respiratory Panel [place] Adenovirus (Rapid PCR) B.pert (TEM-PCR) B.parapertussis DNA PCR C. pneumoniae DNA (PCR) Coronavirus OC43 (PCR) Coronavirus HKU1 (PCR) Coronavirus 229E (PCR) Coronavirus NL63 (PCR) Human Metapneumovir PCR Influenza A (RT-PCR) Influenza B (RT-PCR) M. pneumoniae (PCR) Parainfluenza 1 (PCR) Parainfluenza 2 (PCR) Parainfluenza 3 (PCR) Parainfluenza 4 (PCR) RSV (PCR) Entero/Rhino (PCR) SARS-CoV-2 RNA (RT-PCR) 04/21/23 04/21/23 04/21/23 14:15 17:02 18:36 WBC 16.7 H RBC 4.74 Hgb 12.1 Hct 39.2 MCV 82.7 MCH 25.5 L MCHC 30.9 L RDW 13.6 Plt Count 217 MPV 9.6 Immature Gran % (Auto) 0.5 H Neut % (Auto) 87.4 H Lymph % (Auto) 6.3 L Bulloch % (Auto) 5.6 Eos % (Auto) 0.0 Baso % (Auto) 0.2 Lymph # (Auto) 1.1 L Bulloch # (Auto) 0.9 Eos # (Auto) 0.0 Baso # (Auto) 0.0 Abs Immat Gran (auto) 0.09 H Absolute Neuts (auto) 14.6 H Absolute Nucleated RBC 0.000 Nucleated RBC % (auto) 0.0 Smear Tech's Comments VBG pH 7.44 H VBG pCO2 37 VBG pO2 88 VBG HCO3 25 VBG O2 Saturation 97.0 VBG Base Excess 1.6 Sodium Potassium Chloride Carbon Dioxide Anion Gap BUN Creatinine Estim Creat Clear Calc Estimated GFR POC Glucose Random Glucose Lactic Acid Lactic Acid F/U @ 2Hr Lactic Acid F/U @ 4Hr 3.9 H* Calcium Troponin I High Sens Urine Color Urine Appearance Urine pH Ur Specific [place] Urine Protein Urine Glucose (UA) Urine Ketones Urine Blood Urine Nitrite Ur Leukocyte Esterase Urine RBC Urine WBC Ur Squamous Epith Cells Urine Bacteria Hyaline Casts Respiratory Panel [place] See Note Adenovirus (Rapid PCR) Not Detected B.pert (TEM-PCR) Not Detected B.parapertussis DNA PCR Not Detected C. pneumoniae DNA (PCR) Not Detected Coronavirus OC43 (PCR) Not Detected Coronavirus HKU1 (PCR) Not Detected Coronavirus 229E (PCR) Not Detected Coronavirus NL63 (PCR) Not Detected Human Metapneumovir PCR Not Detected Influenza A (RT-PCR) Not Detected Influenza B (RT-PCR) Not Detected M. pneumoniae (PCR) Not Detected Parainfluenza 1 (PCR) Not Detected Parainfluenza 2 (PCR) Not Detected Parainfluenza 3 (PCR) Not Detected Parainfluenza 4 (PCR) Not Detected RSV (PCR) Not Detected Entero/Rhino (PCR) Not Detected SARS-CoV-2 RNA (RT-PCR) Not Detected 04/21/23 04/21/23 04/22/23 20:51 23:56 06:22 WBC 8.7 RBC 4.25 Hgb 10.9 L Hct 34.9 L MCV 82.1 MCH 25.6 L MCHC 31.2 RDW 13.8 Plt Count 185 MPV 10.3 Immature Gran % (Auto) Neut % (Auto) Lymph % (Auto) Bulloch % (Auto) Eos % (Auto) Baso % (Auto) Lymph # (Auto) Bulloch # (Auto) Eos # (Auto) Baso # (Auto) Abs Immat Gran (auto) Absolute Neuts (auto) Absolute Nucleated RBC 0.000 Nucleated RBC % (auto) 0.0 Smear Tech's Comments VBG pH VBG pCO2 VBG pO2 VBG HCO3 VBG O2 Saturation VBG Base Excess Sodium 140 Potassium 3.1 L Chloride 107 Carbon Dioxide 26 Anion Gap 10 L BUN 12 Creatinine 0.65 Estim Creat Clear Calc 47.2 Estimated GFR > 60 POC Glucose 211 H 219 H Random Glucose 183 H Lactic Acid 1.8 Lactic Acid F/U @ 2Hr Lactic Acid F/U @ 4Hr Calcium 8.9 D Troponin I High Sens Urine Color Urine Appearance Urine pH Ur Specific [place] Urine Protein Urine Glucose (UA) Urine Ketones Urine Blood Urine Nitrite Ur Leukocyte Esterase Urine RBC Urine WBC Ur Squamous Epith Cells Urine Bacteria Hyaline Casts Respiratory Panel [place] Adenovirus (Rapid PCR) B.pert (TEM-PCR) B.parapertussis DNA PCR C. pneumoniae DNA (PCR) Coronavirus OC43 (PCR) Coronavirus HKU1 (PCR) Coronavirus 229E (PCR) Coronavirus NL63 (PCR) Human Metapneumovir PCR Influenza A (RT-PCR) Influenza B (RT-PCR) M. pneumoniae (PCR) Parainfluenza 1 (PCR) Parainfluenza 2 (PCR) Parainfluenza 3 (PCR) Parainfluenza 4 (PCR) RSV (PCR) Entero/Rhino (PCR) SARS-CoV-2 RNA (RT-PCR) 04/22/23 04/22/23 07:37 11:04 WBC RBC Hgb Hct MCV MCH MCHC RDW Plt Count MPV Immature Gran % (Auto) Neut % (Auto) Lymph % (Auto) Bulloch % (Auto) Eos % (Auto) Baso % (Auto) Lymph # (Auto) Bulloch # (Auto) Eos # (Auto) Baso # (Auto) Abs Immat Gran (auto) Absolute Neuts (auto) Absolute Nucleated RBC Nucleated RBC % (auto) Smear Tech's Comments VBG pH VBG pCO2 VBG pO2 VBG HCO3 VBG O2 Saturation VBG Base Excess Sodium Potassium Chloride Carbon Dioxide Anion Gap BUN Creatinine Estim Creat Clear Calc Estimated GFR POC Glucose 169 H 131 H Random Glucose Lactic Acid Lactic Acid F/U @ 2Hr Lactic Acid F/U @ 4Hr Calcium Troponin I High Sens Urine Color Urine Appearance Urine pH Ur Specific [place] Urine Protein Urine Glucose (UA) Urine Ketones Urine Blood Urine Nitrite Ur Leukocyte Esterase Urine RBC Urine WBC Ur Squamous Epith Cells Urine Bacteria Hyaline Casts Respiratory Panel [place] Adenovirus (Rapid PCR) B.pert (TEM-PCR) B.parapertussis DNA PCR C. pneumoniae DNA (PCR) Coronavirus OC43 (PCR) Coronavirus HKU1 (PCR) Coronavirus 229E (PCR) Coronavirus NL63 (PCR) Human Metapneumovir PCR Influenza A (RT-PCR) Influenza B (RT-PCR) M. pneumoniae (PCR) Parainfluenza 1 (PCR) Parainfluenza 2 (PCR) Parainfluenza 3 (PCR) Parainfluenza 4 (PCR) RSV (PCR) Entero/Rhino (PCR) SARS-CoV-2 RNA (RT-PCR) Imaging Chest x-ray: Radiologist's impression: ITS Impressions Chest X-Ray 04/21/23 13:05 IMPRESSION: 1. Hypoexpanded lungs without acute process. 2. Moderate right para midline spondylosis. Abdomen/Pelvis CT 04/21/23 14:00 IMPRESSION: There is a soft tissue mass in the anal and perianal region. The ischiorectal fossa is normal. Recommend clinical correlation examination No abnormal abnormal pelvic, inguinal or retroperitoneal lymphadenopathy. Fleischner guidelines were followed. Discharge Plan Discharge Anticipated Discharge Date/Time: 04/22/23 10:39 Patient Disposition: Home, Self-Care Discharge Diagnosis: acute lactic acidosis ,nausea /vomiting ,hypokalemia Referrals: Tami Bello FNP [Primary Care Provider] - 1 Week Discharge Medications: Continued amlodipine 5 mg tablet 5 mg PO DAILY aspirin 81 mg tablet,delayed release (DR/EC) 81 mg PO DAILY melatonin 10 mg capsule 10 mg PO BEDTIME quetiapine 100 mg tablet 100 mg PO BEDTIME trazodone 100 mg tablet 100 mg PO BEDTIME acetaminophen 650 mg tablet extended release 650 mg PO DAILY insulin lispro protamin-lispro 100 unit/mL (75-25) insulin pen 18 unit subcut BID rosuvastatin 20 mg tablet 20 mg PO BEDTIME Changed metformin 500 mg tablet extended release 24 hr 250 mg PO BID Qty: 1 0RF Discharge Orders: Discharge Order (Routine); Ordered 04/22/23 Ordered By: Fadi Serra Diet: Advance to usual diet Activity on Discharge: As tolerated Stand Alone Forms: Patient Portal Discharge page Other Ambulatory Orders: Basic Metabolic Panel (Routine) Timeframe: 1 Week Facility: [facility] - Location: Laboratory Ordered By: Fadi Serra Care Plan Goals: patient was admitted for nausea vomiting episode ,found to have acute lactic acidsosis and dehydration,also had leucocytosis, mild tachycardia(likely due to afib and dehydration) : patient started on iv hydration,antiemetics ,respiratory viral panel and blood cultures sent by Ed, in addition ct abd done -seems fine except In the ED, physical examination did not corroborate CT's finding of potential of rectal mass : patient seems to be improve with supportive care ,lactic acidosis resolved ,respiratory viral panel negative , blood cultures still pending at time of discharge but patient is asymptomatic ua ,respiratory panel ,cxr and ct abd seems negative ,so will defer antibiotics for now. patient was advised to follow up with pcp outpatient for blood cultures, also consider outpatient follow with GI for abnormal Ct abd findings above. in addition cut down metformin considering recent nause/vomiting ,dehydration and lactic acidosis. follow up with pcp ( also follow blood culture results outpatiently). Health Concerns: as above. Plan of Treatment: as above. Assessment: as above.
--- NOTE | 2023-04-22 13:46 | MHC.CM.PN ---
Pt has been medically cleared for DC, she will go home via ambulance and resume her prior home care services.
[2023-04-22 13:49] LABS: Potassium 3.8 mmol/L (3.3-5.1)
[2023-04-22 15:10] VITALS: BP 126/74; PULSE 81; RESP 18; TEMP 36.7; O2SAT 94
[2023-04-22 17:00] LABS: Glucose, Whole Blood 195 mg/dL (60-115)
[2023-04-22] MEDS: Insulin Lispro 100 UNIT/ML 3 ML VIAL SUBCUT (17:00)
== END 2023-04-22 20:00 | disposition home or self-care (01) ==
LOC: HO.ED 18:08 → HO.EDOVER 18:37 → HO.IMC 19:56
PROVIDERS: Admitting Provider Student in an Organized Health Care Education/Training Program; Emergency Provider Emergency Medicine; PCP Registered Nurse; Visit Provider Internal Medicine
DX: E87.21 Acute metabolic acidosis (principal); E87.6 Hypokalemia; R11.2 Nausea with vomiting, unspecified; R53.1 Weakness; I10 Essential (primary) hypertension; E11.9 Type 2 diabetes mellitus without complications; M19.90 Unspecified osteoarthritis, unspecified site; R74.02 Elevation of levels of lactic acid dehydrogenase [LDH]; R10.819 Abdominal tenderness, unspecified site; I48.91 Unspecified atrial fibrillation; E78.5 Hyperlipidemia, unspecified; R00.0 Tachycardia, unspecified; G30.9 Alzheimer's disease, unspecified; F02.80 Dementia in other diseases classified elsewhere, unspecified severity, without behavioral disturbance, psychotic disturbance, mood disturbance, and anxiety; E86.0 Dehydration; D72.829 Elevated white blood cell count, unspecified; R93.89 Abnormal findings on diagnostic imaging of other specified body structures; Z79.01 Long term (current) use of anticoagulants; Z79.4 Long term (current) use of insulin; Z79.899 Other long term (current) drug therapy
CPT/HCPCS: 36415; 71045; 74177; 80048; 80076; 81001; 82803; 82947; 83605; 83690; 83735; 83880; 84132; 84484; 85025; 85027; 86140; 87040; 87633; 93005; 96361; 96365; 96366; 96367; 96372; 99222; 99285; J0696; J1650; J1836; J3480; J7120; Q9967

== ENCOUNTER → 2023-04-21 11:37 | Outpatient (BNV) | payer MEDICARE, MEDICAID, SELFPAY | PROVIDERS: Emergency Provider Emergency Medicine; PCP Registered Nurse; Visit Provider Internal Medicine Cardiovascular Disease | DX: I48.91 Unspecified atrial fibrillation (principal); R94.31 Abnormal electrocardiogram [ECG] [EKG] | CPT/HCPCS: 93010 ==

== ENCOUNTER → 2023-04-21 18:25 | Outpatient (BNV) | payer MEDICARE, MEDICAID, SELFPAY | PROVIDERS: Admitting Provider Student in an Organized Health Care Education/Training Program; Emergency Provider Emergency Medicine; PCP Registered Nurse; Visit Provider Student in an Organized Health Care Education/Training Program | DX: R79.89 Other specified abnormal findings of blood chemistry (principal); E87.6 Hypokalemia | CPT/HCPCS: 99222; 99239 ==

== ENCOUNTER 2023-06-12 08:43 | Outpatient (RCR) | payer OTHER, SELFPAY | END 2023-07-17 11:51 | disposition home or self-care (01) | LOC: HO.WCC 08:43 | PROVIDERS: PCP Registered Nurse; Visit Provider Physician Assistant | DX: E11.621 Type 2 diabetes mellitus with foot ulcer (principal); L89.620 Pressure ulcer of left heel, unstageable; E11.51 Type 2 diabetes mellitus with diabetic peripheral angiopathy without gangrene; F03.90 Unspecified dementia, unspecified severity, without behavioral disturbance, psychotic disturbance, mood disturbance, and anxiety; I10 Essential (primary) hypertension; Z87.891 Personal history of nicotine dependence | CPT/HCPCS: 99212; 99213 ==

== ENCOUNTER 2023-06-27 09:25 | Outpatient (REF) | payer OTHER, SELFPAY ==
--- NOTE | ~2023-06-27 | CT_ITS ---
EXAMINATION: CT ABDOMEN AND PELVIS WITHOUT CONTRAST CLINICAL INFORMATION: Anal/perianal mass. COMPARISON: CT abdomen and pelvis dated 04/21/2023. TECHNIQUE: Multidetector volumetric imaging was performed from the superior aspect of the liver through the pubic symphysis. Sagittal and coronal reformatted images were obtained on the technologist's workstation. This CT examination was performed using dose optimization techniques as appropriate, variously including the following: *Automated exposure control *Adjustment of mA and/or kV according to patient size (this includes techniques or standardized protocols for targeted exams where dose is matched to indication/reason for exam; i.e. extremities or head) *Use of iterative reconstruction technique DLP: 569 mGy-cm FINDINGS: LUNG BASES: The visualized lung bases are unremarkable. LIVER, GALLBLADDER, AND BILIARY TREE: The liver is normal in size, shape, and attenuation. No focal hepatic lesion or biliary ductal dilatation is present. The gallbladder is surgically absent. PANCREAS: Unremarkable. SPLEEN: No splenomegaly is seen. A central benign, calcified granuloma is noted. ADRENAL GLANDS: Unremarkable. KIDNEYS AND URETERS: The kidneys are normal in size, shape, and attenuation. No hydronephrosis, hydroureter, or calculi seen. No perinephric stranding. BLADDER: There is an 8 x 2 mm calculus in the dependent rightward bladder. No mass or nodule is seen. GASTROINTESTINAL TRACT: There is posterior anorectal wall thickening, without discrete abscess noted. There is a suggestion of a tortuous posterior anal fistula (6:17). There is a moderate stool burden. No obstruction or free intraperitoneal air is seen. There is no diverticulosis or diverticulitis. The vermiform appendix is suboptimally visualized, but appears unremarkable (4:19). ABDOMINAL WALL: No significant hernia is appreciated. LYMPH NODES: Normal. VASCULAR: There is moderate aortoiliac atherosclerotic calcification. No abdominal aortic aneurysm is seen. PELVIC VISCERA: The uterus appears to be surgically absent. No pelvic mass, free fluid or lymphadenopathy is seen. OSSEOUS STRUCTURES: There is multi-level thoracolumbar degenerative disc disease, spondylosis and Schmorl's node formation. No acute or aggressive osseous finding is noted. CT/CT abdomen pelvis wo IV con IMPRESSION: 1. Posterior anorectal wall thickening is seen, without discrete abscess. Please correlate with the patient's physical examination findings. 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 No abscess cavity is noted. 2. A dependent bladder calculus is seen. 3. There are degenerative changes of the spine. Fleischner guidelines were followed.
[2023-06-28 07:30] LABS: Creatinine POC 0.8 mg/dL (0.5-1.4); GFR POC > 60
== END 2023-06-27 09:26 | disposition home or self-care (01) ==
LOC: HO.CT 09:25
PROVIDERS: PCP Registered Nurse; Visit Provider Registered Nurse
DX: M79.89 Other specified soft tissue disorders (principal)
CPT/HCPCS: 74176; 82565

== ENCOUNTER 2023-08-07 12:10 | Emergency (ER) | payer OTHER, SELFPAY ==
[2023-08-07 12:19] VITALS: BP 122/64; PULSE 36; O2SAT 98
[2023-08-07 12:20] VITALS: BP 107/47; PULSE 48; RESP 16; TEMP 36.4; O2SAT 100; BMI 26.6
[2023-08-07 12:34] LABS: Glucose, Whole Blood 211 mg/dL (60-115)
--- NOTE | 2023-08-07 13:32 | MHC.CM.ED ---
Received case management consult from Dr Pete. Patient came to the ER due to AMS and SOB. Patient is interested in hospice at home. Met with patient, son Vladislav and full time staff interpreter. Patient was at Dr Bello's office on Monday. Patient was referred to hospice. Hospice was scheduled to come to patient's home this afternoon. However, patient ended up in the ER due to increased shortness of breath. Copy of HCP obtained from Vladislav and placed in chart. Vladislav would like patient to be DNR . Blank MOLST form provided to Dr Pete to complete with Vladislav and sign. Per Dr Bello's office, a referral was made to [facility] for hospice. Referral made to [facility] in [facility] so they can meet with patient and son while in ER. Continue to monitor for d/c needs.
[2023-08-07 13:36] VITALS: BP 95/41; PULSE 29; RESP 24; O2SAT 100
--- NOTE | 2023-08-07 14:54 | ED.GENADULT ---
HPI - General Adult General Chief complaint: Dyspnea Stated complaint: AMS,SOB PER EMS Time Seen by Provider: 08/07/23 12:25 Source: family (Son) and EMS Mode of arrival: EMS History of Present Illness HPI narrative: 88-year-old female who arrives via EMS with altered mental status, difficulty and labored breathing, vomiting, son called EMS because hospice services did not arrive at the house and family does not have a current MOLST but the son does have a healthcare proxy. I did briefly review DNR DNI status with the son at bedside and he confirms that his mother does not want any heroic measures. Related Data Home Medications ?Medication ?Instructions ?Recorded ?Confirmed amlodipine 5 mg tablet 5 mg PO DAILY 01/09/20 04/21/23 aspirin 81 mg tablet,delayed 81 mg PO DAILY 01/09/20 04/21/23 release melatonin 10 mg capsule 10 mg PO BEDTIME 01/09/20 04/21/23 quetiapine 100 mg tablet 100 mg PO BEDTIME 01/09/20 04/21/23 trazodone 100 mg tablet 100 mg PO BEDTIME 01/09/20 04/21/23 acetaminophen 650 mg 650 mg PO DAILY pain 04/21/23 04/21/23 tablet,extended release insulin lispro protamine-lispro 18 unit subcut BID 04/21/23 04/21/23 100 unit/mL (75-25) subcutaneous pen rosuvastatin 20 mg tablet 20 mg PO BEDTIME 04/21/23 04/21/23 Previous Rx's ?Medication ?Instructions ?Recorded metformin 500 mg tablet,extended 250 mg (1/2 x 500 mg) PO BID #1 tab 04/22/23 release 24 hr Allergies Allergy/AdvReac Type Severity Reaction Status Date / Time No Known Allergies Allergy Verified 08/07/23 12:23 [No Known Allergies*] Review of Systems Review of Systems: Yes Unobtainable due to mental condition PMFSH Past Medical History Source: nursing notes reviewed Medical History COVID-19 virus infection Arthritis Hypertension Diabetes mellitus, type 2 Social History Social History Household Members: Children Household Members Other:: Lives with son who is naval aircrewman helicopter Housing: Unknown / Unable to assess Do you presently have visiting nurse or other home services: No Unable to assess alcohol history related to: Unable to respond Comment: Son (caregiver) at bedside Patient Tobacco Use Status: Former Tobacco user Quit Date: 50 years ago Second Hand Smoke Exposure: No service: No Current occupational status: retired Physical Exam ED Vital Signs: Vital Signs - 24 hr 08/07/23 12:20 08/07/23 13:36 Temperature 97.6 F Pulse Rate 48 L 29 L Respiratory Rate 16 24 H Blood Pressure 107/47 L 95/41 L Pulse Oximetry 100 100 Oxygen Delivery Method Room Air Room Air BMI result Body Mass Index 26.6 VITAL SIGNS: Reviewed. GENERAL: Well developed, well nourished, in no acute distress. HEAD: Normocephalic/atraumatic, EYES: PERRLA, EOMI LUNGS: Decreased breath sounds bilateral SpO2<100> CARDIOVASCULAR: Bradycardic rate with wide complex and rhythm without noted murmurs ABDOMEN: Soft, non-tender, non-distended with bowel sounds. NEUROLOGIC: Alert and not oriented IO removed on arrival after establishing DNR/DNI status. Medical Decision Making Medical Decision Making MDM Narrative: DNR DNI status established in order placed at 12:26, case management consult placed at 12:26. We obtained healthcare proxy documentation. 1430: Ann-Marie from hospice care arrived and I facilitated completion of the MOLST at bedside with air launch weapons technician at 14:44. Differential Diagnosis Differential Diagnoses: The differential diagnosis associated with the presentation includes Please see the discussion above Admission/Observation Consideration of admission/observation: Escalation of care including admission/observation considered Please see the discussion above Consult Healthcare Provider Management of the patient was discussed with: Senior Data Warehouse Developer Please see the discussion above Lab Data Labs: Lab Results 08/07/23 Range/Units 12:20 POC Glucose 211 H (60-115) mg/dL Critical Care Time Critical Care Time Critical Care Time: Yes Total Critical Care Time: 60 Attestation: I personally attest to this time spent taking care of the patient. Discharge Plan Discharge Clinical Impression: Altered mental status, Goals of care, counseling/discussion, Admission for hospice care Patient Disposition: Home, Self-Care Instructions: Altered Mental Status (ED) Prescriptions: No Action amlodipine 5 mg tablet 5 mg PO DAILY aspirin 81 mg tablet,delayed release (DR/EC) 81 mg PO DAILY melatonin 10 mg capsule 10 mg PO BEDTIME quetiapine 100 mg tablet 100 mg PO BEDTIME trazodone 100 mg tablet 100 mg PO BEDTIME acetaminophen 650 mg tablet extended release 650 mg PO DAILY insulin lispro protamin-lispro 100 unit/mL (75-25) insulin pen 18 unit subcut BID rosuvastatin 20 mg tablet 20 mg PO BEDTIME metformin 500 mg tablet extended release 24 hr 250 mg PO BID Qty: 1 0RF Print Language: Maltese
--- NOTE | 2023-08-07 15:03 | PC.NURSE ---
cosmetic account coordinator at bedside, MOLST form signed with Dr. Mcdermott, patient to go back home for hospice care.
--- NOTE | 2023-08-07 15:54 | PC.NURSE ---
Patient noted to be aysystole on monitor, Dr. Mcdermott to bedside, time of 1550.
--- NOTE | 2023-08-07 15:56 | MHC.CM.ED ---
Hospice was at bedside for informational meeting. Hospice team was in the process of attempting to get patient home. T/W made aware patient . [facility] made aware. Pastor Blanton made aware and will be on-site in approximately 15 mins. Rossy MONROY aware. Continue to monitor for d/c needs.
--- NOTE | 2023-08-07 18:03 | PC.NURSE ---
Additional family called by son at bedside, allowed to visit privately with patient, [place] then [place] [facility] [place]
== END 2023-08-07 18:07 | disposition expired ==
PROVIDERS: Emergency Provider Student in an Organized Health Care Education/Training Program; PCP Registered Nurse
DX: R06.02 Shortness of breath (principal); R41.82 Altered mental status, unspecified; R53.83 Other fatigue; Z79.899 Other long term (current) drug therapy
CPT/HCPCS: 82947; 99284